=== PATIENT | female | born 1985 | race Caucasian/White ===

== ENCOUNTER 2022-02-10 19:21 | Emergency (ER) | payer MEDICAID, SELFPAY ==
--- NOTE | 2022-02-10 19:26 | XR_ITS ---
PROCEDURE INFORMATION: Exam: XR Abdomen Exam date and time: 02/10/2022 7:32 PM Age: 36 years old Clinical indication: Constipation; Prior surgery TECHNIQUE: Imaging protocol: Radiologic exam of the abdomen. Views: Frontal supine view of the abdomen. 1 View. COMPARISON: No relevant prior studies available. FINDINGS: Gastrointestinal tract: Nondilated bowel with gas extending throughout the abdomen and pelvis. Organs: Status post cholecystectomy. Bones/joints: Unremarkable. IMPRESSION: No acute findings.
[2022-02-10 20:00] VITALS: BP 132/90; PULSE 87; RESP 18; TEMP 36.9; O2SAT 97; BMI 40.7
--- NOTE | 2022-02-10 20:23 | EXP.UTC ---
Discharge Plan Disposition Patient Disposition: Home, Self-Care Condition: Good Prescriptions Prescriptions: New polyethylene glycol 3350 [Miralax] 17 gram powder in packet 17 g PO DAILY Qty: 30 0RF glycerin (adult) Suppository 1 supp OK DAILY PRN (Reason: constipation) Qty: 12 0RF Referrals Follow up/Referrals: Lizette Carrera [Primary Care Provider] - See instructions Activity Restrictions/Add. Instructions Additional Instructions/Restrictions: Make sure to increase fiber in diet and drink plenty of water Fruits may help to keep you regular Follow up with your Family Doctor if no improvement or any worsening of symptoms Clinical Impressions Clinical Impression: Constipation Instructions Patient Instructions: Constipation (Alternative Therapy), Constipation, High-Fiber Diet, DI for Fecal Impaction Discharge ED Provider: Alayna Adams [facility] General Stated complaint: no BM 2 days Mode of Arrival: Ambulatory Source of Information: Patient Limitations: No Limitations Time Seen by Provider: 02/10/22 20:23 Description of Symptoms (Recalled from Triage Doc. by RN): Pt c/o constipation x2 days HEENT Symptoms (Recalled from RN notes): No Resp Symptoms (Recalled from RN notes): No Skin Symptoms (Recalled from RN notes): No MS Symptoms (Recalled from RN notes): No Functional Status (Recalled from RN notes): n/a History of Present Illness Provider Complaint: Patient states that she feels like she is constipated States that she went to the bathroom earlier and feels like it is down low and dry States that she tried to use her fingers to pull it out but couldnt so she came in to get checked Related Data Previous Rx's Medication Instructions Recorded glycerin (adult) 1 supp OK DAILY PRN constipation 02/10/22 #12 ea polyethylene glycol 3350 17 gram 17 g PO DAILY #30 ea 02/10/22 oral powder packet (Miralax) Allergies Allergy/AdvReac Type Severity Reaction Status Date / Time No Known Allergies Allergy Verified 02/10/22 20:39 Worker's Comp Is this a Worker's Comp case?: No PFSH PFSH Social History Smoking Status: Unknown if ever smoked alcohol intake: never current occupational status: other Travel in the last 8 weeks: None ROS Obtained: Yes All systems reviewed & no additional complaints except as documented and Yes Systems reviewed as appropriate & no additional complaints except as documented Constitutional Constitutional: Reports system reviewed and no additional complaints, except as documented and Reports as per HPI Eyes Eyes: Reports system reviewed and no additional complaints, except as documented and Reports as per HPI ENT Ears, Nose, Mouth, and Throat: Reports system reviewed and no additional complaints, except as documented and Reports as per HPI Cardiovascular Cardiovascular: Reports system reviewed and no additional complaints, except as documented and Reports as per HPI Respiratory Respiratory: Reports system reviewed and no additional complaints, except as documented and Reports as per HPI Gastrointestinal Gastrointestingal: Reports system reviewed and no additional complaints, except as documented, as per HPI, constipation and other (feels like she has hard stool at the rectum she cannot pass) Physical Exam General General appearance: alert and in no apparent distress Respiratory Respiratory exam: Present normal lung sounds bilaterally; Absent respiratory distress or wheezes Cardiovascular Cardiovascular exam: Present regular rate, normal rhythm and normal heart sounds Abdominal Exam Abdominal exam: Present soft and normal bowel sounds; Absent distention or tenderness Rectal Exam Rectal exam: Present other (digital exam done, large amount of dry hard stool noted, lubrication placed and patient able to expell copious amount of dry paisty stool) Neurological Exam Neurological exam: Present alert, oriented X3 and normal gait Medical Decision Making Rod Inquiry
[2022-02-10 20:44] VITALS: BP 132/90; PULSE 87; RESP 18; TEMP 36.9; O2SAT 97
== END 2022-02-10 20:47 | disposition home or self-care (01) ==
PROVIDERS: Emergency Provider Nurse Practitioner; PCP Internal Medicine Addiction Medicine
DX: K59.00 Constipation, unspecified (principal)
CPT/HCPCS: 74018; 99212; G0463

== ENCOUNTER → 2022-03-10 13:05 | Outpatient (CLI) | payer MEDICAID, SELFPAY ==
[2022-03-10 14:46] LABS: HCG,Quantitative < 2 mIU/ml (0-5.42)
== END ==
PROVIDERS: PCP Internal Medicine Addiction Medicine; Visit Provider Obstetrics & Gynecology
DX: N92.6 Irregular menstruation, unspecified (principal)
CPT/HCPCS: 36415; 84702

== ENCOUNTER 2023-06-16 15:48 | Emergency (ER) | payer MEDICAID, SELFPAY ==
[2023-06-16 15:50] VITALS: BP 127/36; PULSE 75; RESP 18; TEMP 36.7; O2SAT 98; BMI 41.5
[2023-06-16 16:01] VITALS: BP 127/71; PULSE 73; O2SAT 100
--- NOTE | 2023-06-16 16:46 | ED_ITS ---
Discharge Plan Disposition Patient Disposition: Home, Self-Care Chief Complaint: Extremity Problem,Nontraumatic Prescriptions Prescriptions: No Action polyethylene glycol 3350 [Miralax] 17 gram powder in packet 17 g PO DAILY Qty: 30 0RF glycerin (adult) Suppository 1 supp [place] DAILY PRN (Reason: constipation) Qty: 12 0RF Referrals Follow up/Referrals: Provider,Referral, MD [Primary Care Provider] - See instructions Dyllan Abreu DO [Staff Physician] - See instructions Activity Restrictions/Add. Instructions Additional Instructions/Restrictions: Call your family doctor to establish care for this visit to the emergency department and schedule follow-up within 48 hours to ensure improvement. Information has been given to hepatitis C coordinator, they will be in contact with you in order to set up care and treatment. Clinical Impressions Clinical Impression: Hepatitis C, Bilateral hand numbness Discharge ED Provider: Bernard Velarde General Adult HPI General Chief complaint: Extremity Problem,Nontraumatic Stated complaint: arms going numb and left hand swollen Time Seen by Provider: 06/16/23 15:54 Mode of Arrival: Ambulatory Source of Information: Patient Limitations: No Limitations Description of Symptoms (Recalled from ER Triage Doc. by RN): Patient states that she has had bilateral arm numbness and pain at night for approx 1 week. States she also started taking Suboxone approx 1 week ago as well. Reports left hand swelling as well. History of Present Illness HPI narrative: 37-year-old female recently incarcerated history of hepatitis C that is untreated presenting with hand tingling. Patient states that when she wakes up sometimes in the middle of the night, her hands are burning and tingling on both sides. Denies lower extremity symptoms. Denies weakness, bowel or bladder dysfunction. She does have degenerative disc disease of the neck, but does not have a family doctor to follow-up with because she was just recently incarcerated. Also asking for help with hepatitis C. Related Data Previous Rx's Medication Instructions Recorded glycerin (adult) 1 supp WI DAILY PRN constipation 02/10/22 #12 ea polyethylene glycol 3350 17 gram 17 g PO DAILY #30 ea 02/10/22 oral powder packet (Miralax) Allergies Allergy/AdvReac Type Severity Reaction Status Date / Time No Known Allergies Allergy Verified 02/10/22 20:39 [facility] Disclaimer: The information contained in this section may have been updated after the jesse ent was seen, as this information can be updated by other users. Social History (Updated 02/10/22 @ 20:47 by Alayna Adams APRN) Smoking Status: Never smoker alcohol intake: never current occupational status: other Travel in the last 8 weeks: None ROS Obtained: Yes All systems reviewed & no additional complaints except as documented Physical Exam General General appearance: alert and in no apparent distress Head Head exam: atraumatic and normocephalic Eye Eye exam: Present normal appearance, PERRL and EOMI ENT ENT exam: Present mucous membranes moist Neck Neck exam: Present normal inspection, full ROM and trachea midline Respiratory Respiratory exam: Absent respiratory distress, wheezes, stridor, accessory muscle use or prolonged expiratory phase Cardiovascular Cardiovascular exam: Present normal rhythm Abdominal Exam Abdominal exam: Present soft; Absent distention, tenderness, guarding, rebound or rigidity Extremities Exam Extremities exam: Absent edema Neurological Exam Neurological exam: Present alert, oriented X3, CN II-XII intact and normal gait; Absent motor sensory deficit Skin Skin exam: Present warm and dry; Absent diaphoresis or erythema Medical Decision Making Medical Records Medical records reviewed: Yes I reviewed the patient's medical records. Rod Inquiry Pt receiving controlled substance: No Rod was queried for this patient: No Vital Signs: 06/16/23 15:50 06/16/23 16:01 06/16/23 17:40 Temperature 98.0 F Temperature Source Oral Pulse Rate 73 57 L Pulse Rate [Radial] 75 Respiratory Rate 18 Blood Pressure 127/71 111/61 Blood Pressure [Right Arm] 127/36 L Blood Pressure Mean 86 Blood Pressure Mean [Right Arm] 66 Blood Pressure Source [Right Arm] Automatic Cuff Blood Pressure Position [Right Arm] Sitting 02 Sat by Pulse Oximetry 98 100 100 Oxygen Delivery Method Room Air Room Air Room Air Lab Data Lab Results 06/16/23 17:00: WBC 4.4 L, RBC 4.85, Hgb 14.7, Hct 44.9, MCV 92.5, MCH 30.4, MCHC 32.9, RDW 13.8, Plt Count 217, MPV 8.1, Neut % (Auto) 49.5, Lymph % (Auto) 40.7, [place] % (Auto) 5.2, Eos % (Auto) 3.7, Baso % (Auto) 0.8, Neut # (Auto) 2.2, Lymph # (Auto) 1.8, [place] # (Auto) 0.2, Eos # (Auto) 0.2, Baso # (Auto) 0.0, Sodium 138, Potassium 3.9, Chloride 105, Carbon Dioxide 28, Anion Gap 8.9, BUN 9, Creatinine 0.70, Estimated Creat Clear 99, Estimated GFR 94, Est GFR ( Amer) 114, Glucose 93, Calcium 8.5, Total Bilirubin 0.6, AST 70 H, ALT 55, Alkaline Phosphatase 47, Total Protein 6.8, Albumin 3.7, Globulin 3.1, Albumin/Globulin Ratio 1.2 06/16/23 17:00 06/16/23 17:00 Orders (Tests/Meds): ORDERS Category Date Time Status CBC w/Auto Diff [Complete Blood Count Auto Diff] Stat Lab 06/16/23 17:00 Completed CMP [Comprehensive Metabolic Panel] Stat Lab 06/16/23 17:00 Completed HCV RNA PCR, Quant Stat Lab 06/16/23 17:00 Received Hep C Ab with Reflex to RNA Stat Lab 06/16/23 17:00 Received Hepatitis Panel Stat Lab 06/16/23 17:00 Received Medical Decision Narrative: 37-year-old female recently incarcerated history of hepatitis C that is untreated presenting with hand tingling. Patient states that when she wakes up sometimes in the middle of the night, her hands are burning and tingling on both sides. Denies lower extremity symptoms. Denies weakness, bowel or bladder dysfunction. She does have degenerative disc disease of the neck, but does not have a family doctor to follow-up with because she was just recently incarcerated. Also asking for help with hepatitis C. History was obtained via conversation with patient. On arrival, patient hemodynamically stable, alert, oriented x4, appropriate, GCS 15, moving all extremities spontaneously, pupils equal and reactive to light. Full physical exam performed and significant for neurovascularly intact. No spinal abnormalities. Differential includes spinal stenosis, compression, radiculopathy, neuropathy, carpal tunnel, among others. Workup independently interpreted and significant for nonactionable CBC or chem istry. Hepatitis labs pending at time of discharge. Given patient presentation, workup, history, this most likely represents radiculopathy versus carpal tunnel syndrome. Because patient at baseline without signs or symptoms of clinical decompensation, deemed appropriate for discharge. Results were relayed to patient who voiced understanding and were agreeable to outpatient management and follow up. At the time of discharge the patient was hemodynamically stable, tolerating PO, and mobilizing appropriately. Information given regarding hepatitis C follow-up and information was relayed to coordinator. Critical Care Critical Care Time Critical Care Time: No
[2023-06-16 17:09] LABS: Basophils % 0.8 % (0.1-2.0); Eosinophils # 0.2 K/mm3 (0.0-0.4); Eosinophils % 3.7 % (0.1-12.0); Hematocrit 44.9 % (37.0-47.0); Hemoglobin 14.7 g/dL (12.2-16.2); Lymphocytes # 1.8 K/mm3 (0.7-4.5); Lymphocytes % 40.7 % (10-50); Mean Corpuscular HGB Conc 32.9 g/dL (31.8-35.4); Mean Corpuscular Hemoglobin 30.4 pg (27.0-31.2); Mean Corpuscular Volume 92.5 fl (81-99); Mean Platelet Volume 8.1 fl (7.4-10.4); Monocytes # 0.2 K/mm3 (0.1-1.0); Monocytes % 5.2 % (1.7-9.3); Neutrophils # 2.2 K/mm3 (1.8-7.8); Neutrophils % 49.5 % (37.0-80.0); Platelet Count 217 K/mm3 (142-424); Red Blood Count 4.85 M/mm3 (4.20-5.40); Red Cell Distribution Width 13.8 % (11.5-17.5); White Blood Count 4.4 K/mm3 (4.8-10.8)
[2023-06-16 17:15] LABS: Chloride 105 mmol/L (98-107); Potassium 3.9 mmoL/L (3.5-5.1); Sodium 138 mmol/L (136-145)
[2023-06-16 17:18] LABS: Alanine Aminotransferase 55 U/L (12-78); Albumin Level 3.7 g/dl (3.5-5.0); Albumin/Globulin Ratio 1.2 (1.1-1.8); Alkaline Phosphatase 47 U/L (38-126); Anion Gap 8.9 mEq/L (5-15); Aspartate Amino Transferase 70 U/L (14-36); Bilirubin,Total 0.6 mg/dl (0.2-1.3); Blood Urea Nitrogen 9 mg/dl (7-17); Carbon Dioxide 28 mmol/L (22.0-30.0); Creatinine Clearance Estimated 99 mL/min (50-200); Estimated Glomerular Filt Rate 94 ml/min (>60); GFR (African American) 114 ML/MIN (>60); Globulin 3.1 g/dL (1.3-3.2); Total Protein,Serum 6.8 g/dl (6.3-8.2)
[2023-06-16 17:19] LABS: Calcium 8.5 mg/dl (8.4-10.2); Glucose 93 mg/dl (74-100)
[2023-06-16 17:40] VITALS: BP 111/61; PULSE 57; O2SAT 100
[2023-06-16 18:35] VITALS: BP 136/59; PULSE 58; RESP 16; TEMP 36.7; O2SAT 99
[2023-06-16 19:06] LABS: T4 (Thyroxine) 11.8 ug/dl (5.53-11.0)
[2023-06-16 19:19] LABS: Thyroid Stimulating Hormone 1.37 uIU/mL (0.465-4.68)
[2023-06-20 21:34] LABS: HCV Ab Reactive (Non Reactive)
[2023-06-21 20:18] LABS: HBsAg Screen Negative (Negative); HCV Ab Reactive (Non Reactive); Hep A Ab, IGM Negative (Negative); Hep B Core Ab, IgM Negative (Negative)
== END 2023-06-16 18:36 | disposition home or self-care (01) ==
PROVIDERS: Emergency Provider Emergency Medicine
DX: B19.20 Unspecified viral hepatitis C without hepatic coma (principal); R20.0 Anesthesia of skin; R20.2 Paresthesia of skin; M50.30 Other cervical disc degeneration, unspecified cervical region
CPT/HCPCS: 80053; 80074; 84436; 84443; 85025; 87522; 99285

== ENCOUNTER 2023-07-11 08:00 | Outpatient (RCR) | payer MEDICAID, SELFPAY ==
--- NOTE | 2023-06-29 10:25 | HMH.PTOPEV ---
PT Outpatient Evaluation Rehab PT Outpatient Evaluation Start: 06/29/23 08:13 Freq: Status: Active Protocol: Document 06/29/23 09:59 SAHIL (Rec: 06/29/23 10:24 PHOADELAIDA [id number]) E-signed By Tommie Carter, PT Outpatient Therapy Plan of Care Treatment Plan May Include Therapeutic Exercise Including Home Yes Exercise Program Manual Therapy Techniques Yes Neuromuscular Re-education Yes Therapeutic Activities to Return to Yes Previous Functional/Work Level ADL/Self Care Education Yes Orthotics/Bracing/Splinting Yes Vasopneumatic Compression Pump Yes Manual Lymphatic Drainage Yes Eval/Re-Eval Yes Frequency Times per week 2 Duration Number of Weeks 4 Addendums This patient is a candidate for social No or vocational rehab? Patient/Guardian verbally acknowledges Yes understanding of treatment program and consents to further treatment? Patient/Guardian verbally acknowledges Yes understanding of diagnosis, prognosis and goals for treatment? Eval Complexity PT Charges 03840 - High Complexity Outpatient Therapy Subjective History Subjective History This is the initial PT eval for Nahomy Kim, 37 yowf who presents with c/o B UE and L LE edema, chronic low back pain and increased c/o B forearm pain. She reports L LE edema with insidious onset beginning 6-7 yrs ago. She reports pain and edema worse with prolonged standing. She reports her low back pain is not present today and is only intermittent in nature. She does c/o B forearm pain with increased numbness and tingling associated x several months with insidious onset. She reports hx of DDD, Hep C, CCY, tubal ligation, , hx of substance abuse. New diagnosis of cancer in past 12 No months? Chief Complaint Pain Symptom Type Sharp Symptoms Relieved By Rest/Positioning Symptoms Aggravated By Lifting Prior Functional Limitations None Current Functional Limitations Lifting,Housework Symptom Description Intermittent Level of pain today (0-10) 0 Pain scale - at its worst (0-10) 6 Lumbopelvic Eval Posture Thoracic Spine Posture Standing Position Neutral Lumbar Spine Posture Standing Position Neutral Range of Motion Lumbar Spine ROM Reason Not Measured Within Functional Limits Manual Muscle Test Bilateral Knee Extension Strength Grade 5 Normal Knee Flexion Strength Grade 5 Normal Hip Flexion Strength Grade 5 Normal Hip Abduction Strength Grade 5 Normal Hip Adduction Strength Grade 5 Normal Hip External Rotation Strength Grade 5 Normal Hip Internal Rotation Strength Grade 5 Normal Hip Extension Strength Grade 5 Normal Extensor Hallucis Longus Strength Grade 5 Normal Ankle Dorsiflexion Strength Grade 5 Normal Gastronemius/Soleus Strength Grade 5 Normal Special Tests Forward Bending Test- Standing Negative Left,Negative Right Forward Bending Test- Sitting Negative Left,Negative Right Hip Scouring (Quadrant) Test Negative Left,Negative Right Hip Jaspreet (MOSES) Test Negative Left,Negative Right Sciatic Nerve Tension Test Negative Left,Negative Right Lumbar Long [place] Distraction Test/Manual Negative Traction Outpatient Therapy Assessment Impairments Problems/Impairmments Subjective C/O Pain Prognosis Rehab Potential Innapropriate for Skilled Therapy Comment Currently her low back is not causing any pain or radicular symptoms. She c/o much more UE and neck symptoms at this time. Recommended a new order from MD for cervical DDD with radiculopathy or possibly neurology consult if warranted based on her symptoms. Clinical Impression Consistent with Diagnosis Yes Shoulder/Elbow Eval Shoulder Objective Measurements Elbow Objective Measurements PHYSICIAN CERTIFICATION: I certify the specified therapy services for Nahomy Kim are required, authorized, and reviewed every 30 days.
--- NOTE | 2023-06-29 10:25 | HMH.PTOPWND ---
Rehab Outpt Wound Evaluation Rehab OP Wound Evaluation Start: 06/29/23 08:13 Freq: Status: Active Protocol: Document 06/29/23 09:59 PHOADELAIDA (Rec: 06/29/23 10:24 PHORNE [id number]) E-signed By Tommie Carter, PT Subjective/History History History This is the initial PT eval for Nahomy Kim, 37 yowf who presents with c/o B UE and L LE edema, chronic low back pain and increased c/o B forearm pain. She reports L LE edema with insidious onset beginning 6-7 yrs ago. She reports pain and edema worse with prolonged standing. She reports her low back pain is not present today and is only intermittent in nature. She does c/o B forearm pain with increased numbness and tingling associated x several months with insidious onset. She reports hx of DDD, Hep C, CCY, tubal ligation, , hx of substance abuse. Subjective Subjective Currently no pitting edema or pain in the L LE. Moderate Fibrotic edema to the L LE noted with palpation. No tenderness to palpation noted. New diagnosis of cancer in past 12 No months? Lymphedema Eval Classification of Lymphedema Secondary Lymphedema No Stemmer's sign Stemmer's Sign no Stage of Lymphedema Lymphedema stages Stage II (Pitting edema, increased fibrosis w/ decreased pitting) Skin Changes Dry Skin Yes Skin Folds Yes Other Changes Yes Affected Extremities Areas Affected by Lymphedema/Edema Right Lower Extremity,Left Lower Extremity Manual Lymphatic Drainage Treatment Area MLD Treatment Area Right Lower Extremity,Left Lower Extremity Wound Problems/Impairments Impairments Problems/Impairmments Impaired Standing,Impaired Household Care,Increased Edema ,Lymphedema Present,Subjective C/O Pain,Impaired Self Care/ Self Management Prognosis Rehab Potential Good Clinical Impression Consistent with Diagnosis Yes Short Term Goals Number of Weeks 2 Decrease Lymphedema Yes: Min fibrotic edema L LE Patient to Understand Lymphedema Yes Treatment and Exercises Decrease Girth Measurments by (cm) Yes: L LE total by 5 cm Detention Goals Number of Weeks 4 Decrease Lymphedema Yes: No fibrotic edema L LE Patient to be Ind w/ HEP Yes Patient to be Ind w/ [place] Yes Compression Garments Patient to Adhere Lymphedema Precautions Yes Decrease Girth Measurments by (cm) Yes: L LE total by 15 cm Outpatient Therapy Plan of Care Treatment Plan May Include Therapeutic Exercise Including Home Yes Exercise Program Manual Therapy Techniques Yes Neuromuscular Re-education Yes Therapeutic Activities to Return to Yes Previous Functional/Work Level ADL/Self Care Education Yes Orthotics/Bracing/Splinting Yes Vasopneumatic Compression Pump Yes Manual Lymphatic Drainage Yes Eval/Re-Eval Yes Frequency Times per week 2 Duration Number of Weeks 4 Addendums This patient is a candidate for social No or vocational rehab? Patient/Guardian verbally acknowledges Yes understanding of treatment program and consents to further treatment? Patient/Guardian verbally acknowledges Yes understanding of diagnosis, prognosis and goals for treatment? Eval Complexity PT Charges 64621 - High Complexity PHYSICIAN CERTIFICATION: I certify the specified therapy services for Nahomy Kim are required, authorized, and reviewed every 30 days.
== END 2023-07-11 09:00 | disposition home or self-care (01) ==
LOC: PT 08:00
PROVIDERS: Visit Provider Internal Medicine
DX: M53.86 Other specified dorsopathies, lumbar region (principal); M54.30 Sciatica, unspecified side; R60.0 Localized edema
CPT/HCPCS: 97163

== ENCOUNTER → 2023-07-12 11:00 | Outpatient (POV) | payer MEDICAID, SELFPAY ==
--- NOTE | 2023-07-12 11:04 | A.OFFVIS_ITS ---
HPI Data of Consult Patient: new to practice Consult date: 07/12/23 Requesting Physician: Nikki Sanchez APRN Primary Care Provider: Dyllan Abreu DO Consult Narrative Reason for consult: Neck pain, bilateral arm pain, finger numbness tingling History of present illness: Ms. Kim is a 37 year old female who presents today as a new patient. She is from Dyllan Abreu's office. Today she rates her pain an 8 out of 10. Patient states her pain is all in her neck with radiating symptoms to her upper extremities and into her hands and fingers. Patient states this is been going on for longer than a month unrelated to any specific trauma or injury. She does state that she has had her overall aching, shooting pains in her neck for longer than that but the numbness symptoms are really starting to affect her daily life. Patient does state that it is affecting her sleep but the pain is worse at night. She states that frequently she will be woken up in the middle of the night due to the numbness and tingling. She states she cannot sleep on her sides due to this. Patient does state the pain interferes with her ability perform activities of daily living such as cooking and cleaning. She also states occasionally she will experience swelling into her fingers. She does state that the left side is more prominent than the right. Patient states that she was ordered physical therapy and that she has gone to her first evaluation but she was scheduled for her first official appointment this morning and had to cancel. Patient states that she is planning on getting back into the office for this therapy however she is just had a busy schedule. Patient has tried [id number] Tylenol and ibuprofen along with heat and ice and topicals with minimal relief. She denies any recent fall or foraminal or injection. Patient denies any recent imaging as well. She is on Suboxone therapy from an outside provider. Her Rod has been reviewed and is appropriate. CC: Nikki Sanchez APRN [facility] Disclaimer: The information contained in this section may have been updated after the patient was seen, as this information can be updated by other users. Medical History (Updated 07/12/23 @ 11:31 by Nikki Sanchez APRN) Sciatica associated with disorder of lumbar spine Surgical History (Updated 06/20/23 @ 09:44 by Kae Pedro [facility]) History of tubal ligation Hx of cholecystectomy Social History (Updated 06/20/23 @ 09:44 by Kae Pedro [facility]) Smoking Status: Never smoker alcohol intake: current current occupational status: other Travel in the last 8 weeks: None Review of Systems Review of Systems Review of systems:: pertinent systems reviewed and negative unless documented below Review of systems (narrative): Review of Systems: General: No recent weight changes, no fever, no sleep disturbances Respiratory: No cough, no shortness of air, no recurring pulmonary infections Cardiovascular/peripheral vascular: No chest pain, no palpitations, no edema, no shortness of breath Gastrointestinal: No new onset incontinence, normal bowel movements reported Genitourinary: No new onset incontinence Musculoskeletal: Neck pain, bilateral pain Psychiatric: [Normal mood/affect] Neurological: [Denies weakness in extremities], [denies balance issues] Meds Home Medications and Allergies Home Medications Medication Instructions Recorded Confirmed Type buprenorphine 8 mg-naloxone 2 mg 1 film sublingual DAILY 06/20/23 06/20/23 History sublingual film New Prescriptions to Start Prescriptions: Allergies Allergy/AdvReac Type Severity Reaction Status Date / Time No Known Allergies Allergy Verified 06/20/23 09:42 Objective Narrative: Physical Exam: General: Alert and oriented x3, no acute distress, pleasant and cooperative Lungs: Respirations even and unlabored, symmetrical chest expansion Eyes: PERRL Musculoskeletal: Flexion and extension of cervical [spine] somewhat guarded secondary to pain Neurological: Speech clear, no gross sensory deficit Assessment and Plan *Assessment and plan (1) Neck pain: Status: Acute Category: Medical Code(s): M54.2 - Cervicalgia (2) Cervical radiculopathy: Status: Acute Category: Medical Code(s): M54.12 - Radiculopathy, cervical region Plan Patient is experiencing significant pain in her neck with radiating symptoms into her upper extremities. I have discussed with the patient that I will order x-ray and MRI without contrast imaging of her cervical spine. I have also discussed with the patient in future she may benefit from injection therapy. We will follow-up with this at future visits. Patient has been recommended to continue her physical therapy in the meantime and I will order the patient a compounded cream. Patient will return to clinic in 1 month following her imaging for reevaluation of symptoms and plan of care. Patient has been instructed to contact the clinic with any concerns before the next appointment. Dr. Fontenot has reviewed this note and agrees with this plan of care. This note was dictated using voice recognition software and make contain errors or omissions.
[2023-07-12 11:46] VITALS: BP 114/63; PULSE 67; RESP 18; O2SAT 96; BMI 41.5
--- NOTE | 2023-07-12 11:46 | XR_ITS ---
FINAL REPORT TECHNIQUE: 5 views CLINICAL HISTORY: NECK PAIN COMPARISON: None FINDINGS: There is no fracture present. There is no malalignment. There is mild to moderate degenerative change of the lower cervical spine. There is straightening of the normal curvature of the cervical spine. There is no significant neuroforaminal narrowing. IMPRESSION: No acute process Mild to moderate degenerative change as described, with straightening of the normal curvature. Reviewed, Interpreted and Dictated by Cam Rodriguez III, MD Transcribed by Jaclyn Blanton Authenticated and [facility]
== END ==
PROVIDERS: PCP Internal Medicine; Visit Provider Nurse Practitioner Family
DX: M54.12 Radiculopathy, cervical region (principal); M54.2 Cervicalgia
CPT/HCPCS: 72050; 99202; G0463

== ENCOUNTER 2023-08-09 10:20 | Outpatient (POV) | payer MEDICAID, SELFPAY ==
[2023-08-09 10:38] VITALS: BP 112/53; PULSE 70; RESP 18; O2SAT 97; BMI 39.9
--- NOTE | 2023-08-09 11:25 | A.OFFVIS_ITS ---
[facility] Pain Management SOAP Note Subjective:: Patient is a pleasant 37-year-old female who presents today for follow-up of cervical x-ray. Today she rates her pain 8 out of 10. She denies any new trauma or injury. Patient states she continues to have neck pain with radiating symptoms to her arms and hands. Patient states that the numbing, burning sensations that were throughout her hands and more prominent on the night are now continuously throughout the day. Patient states that it is affecting her sleep and she feels like she only got an hour worth last night. Patient does also state that she also notices that she feels like her legs will be more weak with certain positions when she is lying down. Patient did get the compounded cream from her last visit and states that she did not notice significant relief on her hands however her shoulder has helped significantly. Patient will still have her upcoming MRI. Patient denies any heart or kidney issues. Patient is on Suboxone therapy from an outside provider. Her Rod has been reviewed and is appropriate. Review of Systems: General: No recent weight changes, no fever, no sleep disturbances Respiratory: No cough, no shortness of air, no recurring pulmonary infections Cardiovascular/peripheral vascular: No chest pain, no palpitations, no edema, no shortness of breath Gastrointestinal: No new onset incontinence, normal bowel movements reported Genitourinary: No new onset incontinence Musculoskeletal: Neck pain, upper arm pain, low back/leg weakness Psychiatric: [Normal mood/affect] Neurological: [Denies weakness in extremities], [denies balance issues] Objective:: Physical Exam: General: Alert and oriented x3, no acute distress, pleasant and cooperative Lungs: Respirations even and unlabored, symmetrical chest expansion Eyes: PERRL Musculoskeletal: Flexion and extension of cervical [spine] somewhat guarded secondary to pain, [antalgic gait noted] Neurological: Speech clear, no gross sensory deficit Assessment:: Degenerative disc disease of cervical spine with cervical radiculopathy symptoms, low back pain, bilateral leg weakness Plan:: Patient's x-ray imaging were reviewed with the patient with mild to moderate degenerative change noted in the lower cervical spine. I have discussed with the patient we will still proceed forward with ordering the MRI without contrast. I have discussed with patient that she may benefit from a cervical epidural steroid injection. Risk and benefits were discussed with the patient however at this time she would like to wait. I will order the patient diclofe nac 75 mg twice a day and tizanidine 4 mg at bedtime and provide a 2-week supply of this medication. Patient does state that she has a appointment coming up with the neurologist on Sunday. Patient will return to clinic in 2 weeks for reevaluation of symptoms and plan of care. Patient has been instructed to contact the clinic with any concerns before the next appointment. Dr. Fontenot has reviewed this note and agrees with this plan of care. This note was dictated using voice recognition software and make contain errors or omissions. [facility] Disclaimer: The information contained in this section may have been updated after the patient was seen, as this information can be updated by other users. Medical History (Updated 07/18/23 @ 10:26 by Nahomy Abreu DO) Cervical radiculopathy Sciatica associated with disorder of lumbar spine Surgical History (Updated 07/18/23 @ 10:25 by Nahomy Abreu DO) History of delivery Hx of cholecystectomy History of tubal ligation Family History (Updated 07/18/23 @ 09:32 by PEGGY Hills) Other No significant family history Social History Smoking Status: Never smoker alcohol intake: current current occupational status: unemployed Travel in the last 8 weeks: None
== END 2023-08-09 23:59 | disposition home or self-care (01) ==
PROVIDERS: PCP Internal Medicine; Visit Provider Nurse Practitioner Family
DX: M50.10 Cervical disc disorder with radiculopathy, unspecified cervical region (principal); M54.50 Low back pain, unspecified; R53.1 Weakness
CPT/HCPCS: 99212; G0463

== ENCOUNTER 2023-08-23 09:29 | Outpatient (POV) | payer MEDICAID, SELFPAY ==
[2023-08-23 09:53] VITALS: BP 130/33; PULSE 66; RESP 18; O2SAT 98; BMI 39.1
--- NOTE | 2023-08-23 09:53 | EXP.PAIN.SOA ---
[facility] Pain Management SOAP Note Subjective:: Patient is a pleasant 37-year-old female who presents today for insurance denial of MRI of her cervical spine. Patient rates her pain today a 7 out of 10. She denies any new trauma or injury. She does state that she has officially started physical therapy however it is only been for the initial evaluation. Patient from her last visit was prescribed diclofenac 75 mg twice a day and tizanidine 4 mg at bedtime. She does state that this did significantly help at least a get her more sleep. She is requesting a refill. Patient did also get the compounded cream and states it did not seem to do as much for her hands but is helping on her shoulder and parts of her neck. Patient is on Suboxone therapy from an outside provider. Her Rod has been reviewed and is appropriate. Review of Systems: General: No recent weight changes, no fever, no sleep disturbances Respiratory: No cough, no shortness of air, no recurring pulmonary infections Cardiovascular/peripheral vascular: No chest pain, no palpitations, no edema, no shortness of breath Gastrointestinal: No new onset incontinence, normal bowel movements reported Genitourinary: No new onset incontinence Musculoskeletal: Neck pain, upper extremity pain Psychiatric: [Normal mood/affect] Neurological: [Denies weakness in extremities], [denies balance issues] Objective:: Physical Exam: General: Alert and oriented x3, no acute distress, pleasant and cooperative Lungs: Respirations even and unlabored, symmetrical chest expansion Eyes: PERRL Musculoskeletal: Flexion and extension of cervical [spine] somewhat guarded secondary to pain, [antalgic gait noted] Neurological: Speech clear, no gross sensory deficit Assessment:: Degenerative disc disease of cervical spine with cervical radiculopathy symptoms, low back pain, bilateral leg weakness Plan:: Will refill the patient's diclofenac 75 mg twice daily and tizanidine 4 mg at bedtime and provide a 2-month supply of this medication. I have counseled the patient that we will plan on following up with her after 6 weeks of her physical therapy time we will plan on resubmitting for the MRI. Patient will return to clinic in 6 weeks for reevaluation of symptoms and plan of care. Patient has been instructed to contact the clinic with any concerns before the next appointment. Dr. Fontenot has reviewed this note and agrees with this plan of care. This note was dictated using voice recognition software and make contain errors or omissions. [facility] Disclaimer: The information contained in this section may have been updated after the patient was seen, as this information can be updated by other users. Medical History (Updated 08/13/23 @ 12:08 by Lynn Palma APRN) Neck pain Cervical radiculopathy Sciatica associated with disorder of lumbar spine Surgical History History of delivery Hx of cholecystectomy History of tubal ligation Family History Other No significant family history Social History (Updated 08/13/23 @ 11:26 by Linette Malcolm) Smoking Status: Never smoker alcohol intake: former substance use type: crack/cocaine current occupational status: employed Travel in the last 8 weeks: None household members: significant other housing: other marital status: single
== END 2023-08-23 23:59 | disposition home or self-care (01) ==
PROVIDERS: PCP Internal Medicine; Visit Provider Nurse Practitioner Family
DX: M50.10 Cervical disc disorder with radiculopathy, unspecified cervical region (principal); M54.50 Low back pain, unspecified; R53.1 Weakness
CPT/HCPCS: 99212; G0463

== ENCOUNTER 2023-09-14 22:18 | Emergency (ER) | payer MEDICAID, SELFPAY ==
[2023-09-14 22:19] VITALS: BP 117/61; PULSE 68; RESP 16; TEMP 36.5; O2SAT 98; BMI 36.6
--- NOTE | 2023-09-14 22:38 | ED_ITS ---
Discharge Plan Disposition Patient Disposition: Home, Self-Care Prescriptions Prescriptions: No Action buprenorphine-naloxone 8-2 mg film 1 film sublingual DAILY tizanidine [Zanaflex] 4 mg tablet 4 mg PO HS Qty: 30 0RF diclofenac sodium 75 mg tablet,delayed release (DR/EC) 75 mg PO BID Qty: 60 0RF Referrals Follow up/Referrals: Dyllan Abreu DO [Primary Care Provider] - See instructions Activity Restrictions/Add. Instructions Additional Instructions/Restrictions: Take Tylenol 1000 mg every 6 hours (4 times daily) and ibuprofen 400 mg every 6 hours (4 times daily) as needed with food and water to prevent GI upset and kidney damage. Talk to family doctor about possible gabapentin for radicular symptoms. Continue follow-up with physical therapy and MRI, as scheduled. Call your family doctor to establish care for this visit to the emergency department and schedule follow-up within 48 hours to ensure improvement. If you have any worsening of your condition or any other concerning signs or symptoms, return to the emergency department or your primary care doctor for further evaluation. Clinical Impressions Clinical Impression: Cervical radiculopathy at C6, Cervical radiculopathy at C7 Stand Alone Forms Stand Alone Forms: Work/School Release Discharge ED Provider: Bernard Velarde General Adult HPI General Chief complaint: Dizziness Stated complaint: dizzy, numbness in hands Time Seen by Provider: 09/14/23 22:23 Mode of Arrival: Wheelchair Source of Information: Patient Limitations: No Limitations Description of Symptoms (Recalled from ER Triage Doc. by RN): Pt presents with dizziness that started 2 hrs ago (2029) associated with increase in chronic bilateral hand pain that she has had since May 2023. Pt states she has followed up with PCP for her hands, d/t see nerurology in September. Denies any visual changes, nausea, vomiting or falls. History of Present Illness HPI narrative: 37-year-old female with history of cervical radiculopathy secondary to herniated disc, degenerative disc disease presenting with bilateral upper extremity tingling in her hands. This is on it, has not changed. She states that she is also having pain with it. No weakness. No lower extremity deficits. No bowel or bladder incontinence. Following with pain medicine, family doctor, patient on Suboxone, has not had any more pain meds added. Also has a pain cream that she says helps intermittently. Supposed to have physical therapy and MRI coming up in the next couple of weeks, has not made it there. Seems to be doing everything right and very medically compliant. Please note that above description of symptoms, in this electronic medical record under categorization of recalled from ER triage doctor by RN are reflective of an initial nursing assessment, however, is not reflective of my full history and physical exam that was personally taken and clarified. Consequentially, this preceding description of symptoms, which may include the patient's categorized chief complaint in the EMR, do not reflect my personal clinical impression, and the ultimate description of history of present illness and patient stated complaints should be deferred to this section of the note. Unless stated otherwise or congruent with this section of the note, additional signs, symptoms, or incongruence should be interpreted as inaccurate with my clinical impression. Related Data Home Medications Medication Instructions Recorded Confirmed buprenorphine 8 mg-naloxone 2 mg 1 film sublingual DAILY 06/20/23 08/23/23 sublingual film Previous Rx's Medication Instructions Recorded diclofenac sodium 75 mg 75 mg PO BID #60 tabs 08/23/23 tablet,delayed release tizanidine 4 mg tablet (Zanaflex) 4 mg PO HS #30 tabs 08/23/23 Allergies Allergy/AdvReac Type Severity Reaction Status Date / Time No Known Allergies Allergy Verified 08/13/23 11:11 [facility] Disclaimer: The information contained in this section may have been updated after the p yanethient was seen, as this information can be updated by other users. Medical History (Updated 09/14/23 @ 23:12 by Bernard Velarde MD) Neck pain Cervical radiculopathy Sciatica associated with disorder of lumbar spine Surgical History History of delivery Hx of cholecystectomy History of tubal ligation Family History Other No significant family history Social History (Updated 08/13/23 @ 11:26 by Linette Malcolm) Smoking Status: Never smoker alcohol intake: former substance use type: crack/cocaine current occupational status: employed Travel in the last 8 weeks: None household members: significant other housing: other marital status: single ROS Obtained: Yes All systems reviewed & no additional complaints except as documented Physical Exam General General appearance: alert and in no apparent distress Head Head exam: atraumatic and normocephalic Eye Eye exam: Present normal appearance, PERRL and EOMI ENT ENT exam: Present mucous membranes moist Neck Neck exam: Present normal inspection, full ROM and trachea midline Respiratory Respiratory exam: Absent respiratory distress, wheezes, stridor, accessory muscle use or prolonged expiratory phase Cardiovascular Cardiovascular exam: Present normal rhythm Abdominal Exam Abdominal exam: Present soft; Absent distention, tenderness, guarding, rebound or rigidity Extremities Exam Extremities exam: Absent edema Neurological Exam Neurological exam: Present alert, oriented X3, CN II-XII intact and normal gait; Absent motor sensory deficit Skin Skin exam: Present warm and dry; Absent diaphoresis or erythema Medical Decision Making Medical Records Medical records reviewed: Yes I reviewed the patient's medical records. Rod Inquiry Pt receiving controlled substance: No Rod was queried for this patient: No Vital Signs: 09/14/23 22:19 09/14/23 23:22 Temperature 97.7 F 98.0 F Temperature Source Oral Oral Pulse Rate 66 Pulse Rate [Left] 68 Respiratory Rate 16 18 Blood Pressure 124/83 Blood Pressure [Right Arm] 117/61 Blood Pressure Mean [Right Arm] 79 Blood Pressure Source Automatic Cuff Blood Pressure Source [Right Arm] Automatic Cuff Blood Pressure Position Sitting Blood Pressure Position [Right Arm] Sitting 02 Sat by Pulse Oximetry 98 Oxygen Delivery Method Room Air Room Air Orders (Tests/Meds): ED MEDICATIONS Discontinued Medications Generic Name Dose Route Start Last Admin Trade Name Freq PRN Reason Stop Dose Admin Dexamethasone 10 mg 09/14/23 22:34 09/14/23 23:10 Dexamethasone 4mg Tablet PO 09/14/23 22:35 10 mg ONCE ONE Administration Ketorolac Tromethamine 15 mg 09/14/23 22:34 09/14/23 23:04 Ketorolac 30mg/Ml Vial IV 09/14/23 22:35 Not Given ONCE ONE Ketorolac Tromethamine 15 mg 09/14/23 23:05 09/14/23 23:11 Ketorolac 30mg/Ml Vial IM 09/14/23 23:06 15 mg ONCE ONE Administration ORDERS Category Date Time Status Cervical spine XR 3 views [XR cervical spine 3V] Stat Exams 09/14/23 22:40 Completed Medical Decision Narrative: 37-year-old female with history of cervical radiculopathy secondary to herniated disc, degenerative disc disease presenting with bilateral upper extremity tingling in her hands. This is on it, has not changed. She states that she is also having pain with it. No weakness. No lower extremity deficits. No bowel or bladder incontinence. Following with pain medicine, family doctor, patient on Suboxone, has not had any more pain meds added. Also has a pain cream that she says helps intermittently. Supposed to have physical therapy and MRI coming up in the next couple of weeks, has not made it there. Seems to be doing everything right and very medically compliant. History obtained with patient and chart review. On my evaluation, patient neurologically intact, no outward signs of abnormality. No cervical spine tenderness. Labs and cervical spine series was ordered. Patient refusing hematologic labs. Toradol was changed to IM. Cervical spine films unremarkable for any acute malalignment or bony abnormality. Because patient at baseline without signs or symptoms of clinical decompensation, deemed appropriate for discharge. Results were relayed to patient who voiced understanding and were agreeable to outpatient management and follow up. I discussed my clinical impression with patient and answered all questions. At this time, the evidence for any other entities in the differential is insufficient to warrant any further testing or ED observation. This was explained as well. Advisory was given that persistent or worsening symptoms require further evaluation. I confirmed the understanding of this discussion. Critical Care Critical Care Time Critical Care Time: No
--- NOTE | 2023-09-14 22:40 | XR_ITS ---
PROCEDURE INFORMATION: Exam: XR Cervical Spine Exam date and time: 09/14/2023 10:44 PM Age: 37 years old Clinical indication: Numbness; Additional info: Bilateral radiuloathy TECHNIQUE: Imaging protocol: Radiologic exam of the cervical spine. Views: 2 or 3 views. COMPARISON: CR XR CERVICAL SPINE 5V 07/12/2023 11:47 AM FINDINGS: Bones/joints: No acute fracture or subluxation. Mild disc space narrowing and endplate osteophytes at the C5-C6 and C6-C7 levels. Soft tissues: Prevertebral soft tissues are unremarkable. Lungs: Lung apices are unremarkable. IMPRESSION: Mild degenerative changes at C5-C6 and C6-C7.
--- NOTE | 2023-09-14 22:46 | PC.NURSE ---
Attempted IV access X2 , and Lorena Azevedo attempted IV access X1. Pt now refusing to be stuck again.
[2023-09-14] MEDS: DEXAMETHASONE 4MG TABLET 10 MG PO (23:10)
[2023-09-14] MEDS: KETOROLAC 30MG/ML VIAL 15 MG IM (23:11)
[2023-09-14 23:22] VITALS: BP 124/83; PULSE 66; RESP 18; TEMP 36.7; O2SAT 97
== END 2023-09-14 23:23 | disposition home or self-care (01) ==
PROVIDERS: Emergency Provider Emergency Medicine; PCP Internal Medicine
DX: M54.12 Radiculopathy, cervical region (principal); R20.0 Anesthesia of skin; R42 Dizziness and giddiness
CPT/HCPCS: 72040; 96372; 96374; 99284

== ENCOUNTER 2023-09-18 08:02 | Outpatient (RCR) | payer MEDICAID, SELFPAY | END 2023-09-18 09:00 | disposition home or self-care (01) | LOC: OT 08:02 | PROVIDERS: Visit Provider Nurse Practitioner Family | DX: R20.2 Paresthesia of skin (principal); R20.0 Anesthesia of skin | CPT/HCPCS: 97166 ==

== ENCOUNTER 2023-09-26 09:23 | Outpatient (CLI) | payer MEDICAID, SELFPAY ==
[2023-09-26 11:24] LABS: Vitamin B12 678 pg/mL (239-931)
[2023-09-26 11:31] LABS: Folate 7.59 ng/mL
[2023-09-27 15:19] LABS: Albumin 3.4 g/dL (2.9-4.4); Alpha-1-Globulin 0.3 g/dL (0.0-0.4); Alpha-2-Globulin 0.6 g/dL (0.4-1.0); Gamma Globulin 1.4 g/dL (0.4-1.8); Protein, Total 6.4 g/dL (6.0-8.5)
[2023-09-28 09:14] LABS: PDF SCANNED IMAGE
== END 2023-09-26 23:59 | disposition home or self-care (01) ==
LOC: LAB 09:24
PROVIDERS: PCP Internal Medicine; Visit Provider Nurse Practitioner Family
DX: R20.0 Anesthesia of skin (principal); R20.2 Paresthesia of skin; M54.2 Cervicalgia; G89.29 Other chronic pain
CPT/HCPCS: 36415; 82607; 82746; 84155; 84165; 86334

== ENCOUNTER 2023-10-26 10:51 | Emergency (ER) | payer MEDICAID, SELFPAY ==
[2023-10-26 10:52] VITALS: BP 135/82; PULSE 75; RESP 18; TEMP 36.6; O2SAT 98; BMI 36.6
--- NOTE | 2023-10-26 11:09 | HMH.EDGENADL ---
Discharge Plan Disposition Patient Disposition: Home, Self-Care Condition: Good Prescriptions Prescriptions: No Action buprenorphine-naloxone 8-2 mg film 1 film sublingual DAILY amitriptyline 10 mg tablet 20 mg PO HS Qty: 30 5RF Rx Instructions: 10 mg p.o. an hour before bedtime for a week may increase up to 20 mg p.o. nightly if persistent pain tizanidine [Zanaflex] 4 mg tablet 4 mg PO HS Qty: 30 0RF diclofenac sodium 75 mg tablet,delayed release (DR/EC) 75 mg PO BID Qty: 60 0RF Referrals Follow up/Referrals: Dyllan Abreu DO [Primary Care Provider] - See instructions Activity Restrictions/Add. Instructions Additional Instructions/Restrictions: You were seen in the ED today due to cervical radiculopathy. Please follow-up with your primary care and pain management. Return to the ED if symptoms worsen or if new concerning symptoms arise. Thank you. Clinical Impressions Clinical Impression: Cervical radiculopathy Stand Alone Forms Stand Alone Forms: Work/School Release Discharge ED Provider: [facility] HPI General Chief complaint: PAIN Stated complaint: hand pain Time Seen by Provider: 10/26/23 10:57 History of Present Illness HPI narrative: Patient is a 37-year-old female with history of cervical radiculopathy who presents due to hand pain. Patient states for the past 4 months she has had persistent pain in bilateral hands. She states in addition to the pain she has had paresthesias and numbness in the hands as well. Symptoms are worse on the left side compared to right. She states it has started to affect her ability to function as she is unable to use her hands properly sometimes. States she has followed with her primary care and pain management. She is on Suboxone. She has been taking Flexeril as well. States she has initiated physical therapy however is unable to obtain MRI until she has had 6 physical therapy appointments. States she has only been in physical therapy for 1 week thus far. Denies any physical injury. Related Data Home Medications Medication Instructions Recorded Confirmed buprenorphine 8 mg-naloxone 2 mg 1 film sublingual DAILY 06/20/23 10/10/23 sublingual film Previous Rx's Medication Instructions Recorded diclofenac sodium 75 mg 75 mg PO BID #60 tabs 08/23/23 tablet,delayed release tizanidine 4 mg tablet (Zanaflex) 4 mg PO HS #30 tabs 08/23/23 amitriptyline 10 mg tablet 20 mg (2 x 10 mg) PO HS #30 tabs 10/10/23 Allergies Allergy/AdvReac Type Severity Reaction Status Date / Time No Known Allergies Allergy Verified 08/13/23 11:11 [facility] Disclaimer: The information contained in this section may have been updated after the patient was seen, as this information can be updated by other users. Medical History Neck pain Cervical radiculopathy Sciatica associated with disorder of lumbar spine Surgical History History of delivery Hx of cholecystectomy History of tubal ligation Family History Other No significant family history Social History Smoking Status: Never smoker alcohol intake: former substance use type: crack/cocaine current occupational status: employed Travel in the last 8 weeks: None household members: significant other housing: other marital status: single ROS Obtained: Yes All systems reviewed & no additional complaints except as documented Physical Exam General General appearance: alert and in no apparent distress Head Head exam: atraumatic, normocephalic and normal inspection Eye Eye exam: Present normal appearance, PERRL and EOMI ENT ENT exam: Present normal exam, normal oropharynx, mucous membranes moist, TM's normal bilaterally and normal external ear exam Neck Neck exam: Present normal inspection, full ROM and trachea midline; Absent meningismus or lymphadenopathy Chest Chest inspection: Present normal inspection and symmetric chest wall rise; Absent tenderness Respiratory Respiratory exam: Present normal lung sounds bilaterally; Absent respiratory distress Cardiovascular Cardiovascular exam: Present regular rate and normal rhythm; Absent JVD Abdominal Exam Abdominal exam: Present soft and normal bowel sounds; Absent distention, tenderness or guarding Extremities Exam Extremities exam: Present normal inspection, full ROM and normal capillary refill; Absent calf tenderness Back Exam Back exam: Present normal inspection; Absent tenderness Neurological Exam Neurological exam: Present alert, oriented X3 and other (Decreased sensation to digits 1-3 of hands bilaterally. Appropriate motor function.) Psychiatric Psychiatric exam: Present normal affect and normal mood Skin Skin exam: Present warm, dry, intact and normal color Lymphatic Lymphatic Findings: no adenopathy Medical Decision Making Medical Records Medical records reviewed: Yes I reviewed the patient's medical records. Rod Inquiry Pt receiving controlled substance: No Vital Signs: 10/26/23 10:52 10/26/23 12:05 Temperature 97.9 F 98.1 F Temperature Source Oral Oral Pulse Rate 70 Pulse Rate [Left Radial] 75 Respiratory Rate 18 18 Blood Pressure 132/80 Blood Pressure [Right Arm] 135/82 Blood Pressure Mean [Right Arm] 99 Blood Pressure Source Automatic Cuff Blood Pressure Source [Right Arm] Automatic Cuff Blood Pressure Position Sitting Blood Pressure Position [Right Arm] Sitting 02 Sat by Pulse Oximetry 98 Oxygen Delivery Method Room Air Room Air Orders (Tests/Meds): ED MEDICATIONS Discontinued Medications Generic Name Dose Route Start Last Admin Trade Name Salvador PRN Reason Stop Dose Admin Dexamethasone 10 mg 10/26/23 11:08 10/26/23 11:22 Dexamethasone 4mg Tablet PO 10/26/23 11:09 10 mg ONCE ONE Administration Ketorolac Tromethamine 30 mg 10/26/23 11:08 10/26/23 11:22 Ketorolac 30mg/Ml Vial IM 10/26/23 11:09 30 mg ONCE ONE Administration Methocarbamol 500 mg 10/26/23 11:09 10/26/23 11:20 Methocarbamol 500mg Tablet PO 10/26/23 11:10 500 mg ONCE ONE Administration Medical Decision Narrative: In summary, patient is a 37-year-old female with history of cervical radiculopathy, evaluated in the emergency department today due to hand pain and numbness. On arrival, patient is hemodynamically stable with normal vital signs. On examination, patient has decreased sensation to digits 1-3 of hands bilaterally with appropriate motor function. Differential diagnosis includes but is not limited to cervical radiculopathy, nerve impingement, spinal cord injury. Patient given oral Robaxin, IM Toradol, oral Decadron. On reevaluation, patient states she has not experienced much improvement in her symptoms. I had a long discussion with the patient regarding short-term and long-term treatments for her condition including medications and physical therapy. Patient states she will follow-up with her primary care, pain management and physical therapy for further modifications to therapy. Patient is appropriate for discharge at this time. Patient counseled on home care, given strict return precautions and agreeable to plan. I considered the utility of obtaining imaging, but decided against this because this would not change management expert. I considered the utility of treatment with prescription for narcotics, but decided against this because risks outweigh benefits. Critical Care Critical Care Time Critical Care Time: No
[2023-10-26] MEDS: METHOCARBAMOL 500MG TABLET 500 MG PO (11:20)
[2023-10-26] MEDS: DEXAMETHASONE 4MG TABLET 10 MG PO (11:22)
[2023-10-26] MEDS: KETOROLAC 30MG/ML VIAL 30 MG IM (11:22)
--- NOTE | 2023-10-26 11:56 | PC.NURSE ---
ED MD AT BEDSIDE TO UPDATE PT
[2023-10-26 12:05] VITALS: BP 132/80; PULSE 70; RESP 18; TEMP 36.7; O2SAT 97
== END 2023-10-26 12:08 | disposition home or self-care (01) ==
PROVIDERS: Emergency Provider Student in an Organized Health Care Education/Training Program; PCP Internal Medicine
DX: M54.12 Radiculopathy, cervical region (principal); M79.641 Pain in right hand; M79.642 Pain in left hand; R20.2 Paresthesia of skin
CPT/HCPCS: 96372; 99283

== ENCOUNTER 2023-10-31 12:43 | Outpatient (CLI) | payer MEDICAID, SELFPAY ==
[2023-10-31 13:57] LABS: Basophils % 0.8 % (0.1-2.0); Eosinophils # 0.1 K/mm3 (0.0-0.4); Eosinophils % 2.4 % (0.1-12.0); Hematocrit 43.1 % (37.0-47.0); Hemoglobin 14.5 g/dL (12.2-16.2); Lymphocytes # 2.6 K/mm3 (0.7-4.5); Lymphocytes % 46.8 % (10-50); Mean Corpuscular HGB Conc 33.7 g/dL (31.8-35.4); Mean Corpuscular Hemoglobin 30.5 pg (27.0-31.2); Mean Corpuscular Volume 90.4 fl (81-99); Mean Platelet Volume 8.1 fl (7.4-10.4); Monocytes # 0.4 K/mm3 (0.1-1.0); Monocytes % 6.6 % (1.7-9.3); Neutrophils # 2.4 K/mm3 (1.8-7.8); Neutrophils % 43.5 % (37.0-80.0); Platelet Count 216 K/mm3 (142-424); Red Blood Count 4.77 M/mm3 (4.20-5.40); White Blood Count 5.6 K/mm3 (4.8-10.8)
[2023-10-31 14:25] LABS: Chloride 105 mmol/L (98-107); Sodium 138 mmol/L (136-145)
[2023-10-31 14:27] LABS: Alanine Aminotransferase 64 U/L (12-78); Alkaline Phosphatase 54 U/L (38-126); Aspartate Amino Transferase 72 U/L (14-36); Bilirubin,Total 0.9 mg/dl (0.2-1.3); Blood Urea Nitrogen 10 mg/dl (7-17); Estimated Glomerular Filt Rate 94 ml/min (>60); GFR (African American) 114 ML/MIN (>60)
[2023-10-31 14:28] LABS: Albumin Level 3.6 g/dl (3.5-5.0); Albumin/Globulin Ratio 1.3 (1.1-1.8); Calcium 9.1 mg/dl (8.4-10.2); Carbon Dioxide 26 mmol/L (22.0-30.0); Globulin 2.8 g/dL (1.3-3.2); Glucose 89 mg/dl (74-100); Total Protein,Serum 6.4 g/dl (6.3-8.2)
[2023-10-31 14:46] LABS: HCG Qualitative, Serum Negative (Negative)
[2023-10-31 15:37] LABS: INR 1.11 (0.9-1.1); Prothrombin Time 11.9 seconds (10.1-12.5)
[2023-11-01 13:47] LABS: HIV Screen 4th Generation wRfx Non Reactive (Non Reactive)
[2023-11-06 13:12] LABS: Hepatitis C Genotype 1a (.)
== END 2023-10-31 23:59 | disposition home or self-care (01) ==
LOC: LAB 12:43
PROVIDERS: PCP Nurse Practitioner Family; Visit Provider Nurse Practitioner Family
DX: B19.20 Unspecified viral hepatitis C without hepatic coma (principal)
CPT/HCPCS: 36415; 80053; 84703; 85025; 85610; 86703; 87522; 87902; G0432

== ENCOUNTER 2023-11-01 09:29 | Outpatient (POV) | payer MEDICAID, SELFPAY ==
--- NOTE | 2023-11-01 09:34 | A.OFFVIS_ITS ---
[facility] Pain Management SOAP Note Subjective:: Patient is a pleasant 37-year-old female who presents today for 6-week follow- up. Patient rates her pain today a 7 out of 10. She denies any new trauma or injury. She states she continues to have the same pain she has been having however it just seems to be worsening. Patient states she used to be able to work for 4-hour shifts and did not really have pain until she went home and sat down. Now she states that within being at work about an hour she starts feeling like she cannot move is easy and that certain activities like bending over or lifting objects causes worsening pain. Patient has just recently started physical therapy and has only gone for her first real visit. She does state that she has her next visit tomorrow. She is prescribed diclofenac 75 mg twice a day and tizanidine 4 mg at bedtime. Patient has been prescribed compounded cream in the past however did not feel like it gave significant relief. Patient has been prescribed Suboxone therapy from an outside provider in the past. Her Rod has been reviewed and is appropriate. Review of Systems: General: No recent weight changes, no fever, no sleep disturbances Respiratory: No cough, no shortness of air, no recurring pulmonary infections Cardiovascular/peripheral vascular: No chest pain, no palpitations, no edema, no shortness of breath Gastrointestinal: No new onset incontinence, normal bowel movements reported Genitourinary: No new onset incontinence Musculoskeletal: Neck pain, upper extremity pain Psychiatric: [Normal mood/affect] Neurological: [Denies weakness in extremities], [denies balance issues] Objective:: Physical Exam: General: Alert and oriented x3, no acute distress, pleasant and cooperative Lungs: Respirations even and unlabored, symmetrical chest expansion Eyes: PERRL Musculoskeletal: Flexion and extension of cervical [spine] somewhat guarded secondary to pain, [antalgic gait noted] Neurological: Speech clear, no gross sensory deficit Assessment:: Degenerative disc disease of cervical spine with cervical radiculopathy symptoms, low back pain, bilateral leg weakness Plan:: I will refill the patient's diclofenac 75 mg twice a day and provide a 1 month supply of this medication. Patient felt like her tizanidine might not be doing as well. We will discontinue this medication and try her on baclofen 5 mg 3 times daily and provide a 14-day supply of this medication. I have counseled patient to call our office and let us know if it was beneficial and that she was recommended to not take the dose during the day unless she does not have anywhere to go in order for her to see if it causes drowsiness. Patient acknowledges understanding and agrees with this plan of care. I have also discussed with her that we will still plan on resubmitting for the MRI of her cervical spine after she has completed 6 weeks of PT. Patient will return to clinic in 1 month for reevaluation of symptoms and plan of care. Patient has been instructed to contact the clinic with any concerns before the next appointment. Dr. Fontenot has reviewed this note and agrees with this plan of care. This note was dictated using voice recognition software and make contain errors or omissions. [facility] Disclaimer: The information contained in this section may have been updated after the patient was seen, as this information can be updated by other users. Medical History (Updated 10/29/23 @ 15:35 by Bing Rodgers APRN) BMI 34.0-34.9,adult BMI 37.0-37.9, adult Neck pain Cervical radiculopathy Sciatica associated with disorder of lumbar spine Surgical History History of delivery Hx of cholecystectomy History of tubal ligation Family History Other No significant family history Social History Smoking Status: Never smoker alcohol intake: former substance use type: crack/cocaine current occupational status: employed Travel in the last 8 weeks: None household members: significant other housing: other marital status: single
[2023-11-01 09:40] VITALS: BP 155/88; PULSE 65; RESP 16; O2SAT 96; BMI 36.6
== END 2023-11-01 23:59 | disposition home or self-care (01) ==
PROVIDERS: PCP Internal Medicine; Visit Provider Nurse Practitioner Family
DX: M50.10 Cervical disc disorder with radiculopathy, unspecified cervical region (principal); M54.50 Low back pain, unspecified; R53.1 Weakness
CPT/HCPCS: 99212; G0463

== ENCOUNTER 2023-11-02 08:00 | Outpatient (RCR) | payer MEDICAID, SELFPAY ==
--- NOTE | 2023-10-23 10:38 | HMH.OTOPEV ---
OT Inpatient Evaluation Rehab OT Outpatient Eval Start: 10/23/23 10:24 Freq: Status: Active Protocol: Document 10/23/23 10:24 RMARSHALL (Rec: 10/23/23 10:36 RMARSHALL Laptop) E-signed By Denise Santiago, OT Outpatient Therapy Subjective History Subjective History Pt is a 37 year old female who reports to therapy for initial evaluation to bilateral wrist/hands. Pt's symptoms began in May 2023 . She explains she has intermittent numbness/pain in thumb, index, and middle fingers referring up to elbow bilaterally. Pt is right hand dominant, but feels her left hand is worst. 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 Pt is currently wearing bilateral wrist braces at night and during work. Pt does demonstrate with decreased AROM at Left wrist, but her right wrist is within normal limits. 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 Pt will continue to be seen twice a week in order to address all deficits. STG Supervisor [employer] strength Right hand: 30 lbs Left hand: 35 lbs LTG Supervisor [employer] strength Right hand: 40 lbs Left hand: 40 lbs New diagnosis of cancer in past 12 No months? Chief Complaint Pain,Paresthesia,Weakness, Decreased Supervisor [employer] Strength Symptom Type Ache,Throb,Sharp,Numbness, Tingling Symptoms Relieved By Nothing Symptoms Aggravated By Physical Activity,Lifting Prior Functional Limitations None Current Functional Limitations Reaching,Lifting,Housework, Dressing,Sleeping,Recreation Activity Symptom Description Constant but Variable Level of pain today (0-10) 5 Pain scale - at its best (0-10) 5 Pain scale - at its worst (0-10) 8 Wrist/Hand Eval Wrist Range of Motion Right Wrist Extension Active Range of Motion ( 70 degrees degrees) Wrist Flexion Active Range of Motion ( 75 degrees degrees) Wrist Radial Deviation Active Range of 35 degrees Motion (degrees) Wrist Ulnar Deviation Active Range of 28 degrees Motion (degrees) Left Wrist Extension Active Range of Motion ( 28 degrees degrees) Wrist Flexion Active Range of Motion ( 60 degrees degrees) Wrist Radial Deviation Active Range of 30 degrees Motion (degrees) Wrist Ulnar Deviation Active Range of 20 degrees Motion (degrees) Wrist Manual Muscle Testing Right Wrist Extension Strength Grade 3+ Fair+ Wrist Flexion Strength Grade 3+ Fair+ Wrist Radial Deviation Strength Grade 3+ Fair+ Wrist Ulnar Deviation Strength Grade 3+ Fair+ Left Wrist Extension Strength Grade 3+ Fair+ Wrist Flexion Strength Grade 3+ Fair+ Wrist Radial Deviation Strength Grade 3+ Fair+ Wrist Ulnar Deviation Strength Grade 3+ Fair+ Supervisor [employer]/Pinch Strength Right Supervisor [employer] Strength Measurement (lbs) 25 Left Supervisor [employer] Strength Measurement (lbs) 12 QuickDA Activities Please rate your ability to do the following activities in the last week by selecting the number below the appropriate response. 1. Open a tight or new jar. Moderate difficulty 2. Do heavy railroad watchman (e.g., wash Severe difficulty calle, floors). 3. Carry a shopping bag or briefcase. Moderate difficulty 4. Wash your back. Moderate difficulty 5. Use a knife to cut food. Moderate difficulty 6. Recreational activities in which you Severe difficulty take some force or impact through your arm, shoulder, or hand (e.g., golf, hammering, tennis, etc.). 7. During the past week, to what extent Quite a bit has your arm, shoulder or hand problem interfered with your normal social activities with family, friends, neighbors or groups? 8. During the past week, were you Moderately limited limited in your work or other regular daily activites as a result of your arm, shoulder or hand problem? 9. Arm, shoulder or hand pain. Severe 10. Tingling (pins and needles) in your Extreme arm, shoulder or hand. 11. During the past week, how much Severe difficulty difficulty have you had sleeping because of the pain in your arm, shoulder or hand? Quick DASH 40 Work Module (optional) The following questions ask about the impact of your arm, shoulder or hand problem on your ability to work (including homemaking if that is your main work role). 1. Using your usual technique for your Moderate difficulty work? 2. Doing your usual work because of arm, Moderate difficulty shoulder or hand pain? 3. Doing your work as well as you would Moderate difficulty like? 4. Spending your usual amount of time Moderate difficulty doing your work? Quick Dash Work Module Score 12 OT Outpatient Assessment Impairments Problems/Impairments Impaired Range of Motion, Impaired Strength,Impaired Endurance,Impaired Lifting, Impaired Household Care, Impaired Work Activities, Subjective C/O Pain Prognosis Rehab Potential Good Clinical Impression Consistent with Diagnosis Yes Short Term Goals Number of Weeks 3 Increase Range of Motion Yes: L: Flex: 65 Ext: 40 Increase Strength Yes: 4,4-/5 throughout bilateral wrists Increase Endurance Yes: Pt will tolerate bilateral wrist exercises for ~10 minutes prior to rest. Decrease Subjective C/O Pain Yes: 6/10 at worst Patient to be Ind w/ HEP Yes: AAROM/AROM exercises; yellow theraputty Improve Quick Dash Score Yes: Activities: 35 or below Siene Maker Goals Number of Weeks 6 Increase Range of Motion Yes: L wrist: Flex: 70 Ext: 60 Increase Strength Yes: 5/5 throughout bilateral wrists Increase Endurance Yes: Pt will tolerate bilateral wrist exercises for ~20 minutes prior to rest. Decrease Subjective C/O Pain Yes: 3/10 at worst Patient to be Ind w/ Advanced HEP Yes: Advanced strengthening exercises Improve Quick Dash Score Yes: Activities: 30 or below Outpatient Therapy Plan of Care Treatment Plan May Include Therapeutic Exercise Including Home Yes Exercise Program Manual Therapy Techniques Yes Neuromuscular Re-education Yes Therapeutic Activities to Return to Yes Previous Functional/Work Level ADL/Self Care Education Yes Dry Needling Yes Thermal Modalities Yes Electrical Stimulation Yes Ultrasound/Phonophoresis Yes Iontophoresis Yes Parrafin Yes Orthotics/Bracing/Splinting Yes Massage Yes Eval/Re-Eval Yes Frequency Times per week 2 Duration Number of Weeks 6 Addendums This patient is a candidate for social No or vocational rehab? Patient/Guardian verbally acknowledges Yes understanding of treatment program and consents to further treatment? Patient/Guardian verbally acknowledges Yes understanding of diagnosis, prognosis and goals for treatment? Eval Complexity OT Charge 52982 - Moderate Complexity Shoulder/Elbow Eval Shoulder Objective Measurements Elbow Objective Measurements PHYSICIAN CERTIFICATION: I certify the specified therapy services for Nahomy Kim are required, authorized, and reviewed every 30 days.
== END 2023-11-02 09:10 | disposition home or self-care (01) ==
LOC: OT 08:00
PROVIDERS: Visit Provider Specialist
DX: G56.03 Carpal tunnel syndrome, bilateral upper limbs (principal)
CPT/HCPCS: 97166

== ENCOUNTER 2023-11-02 09:00 | Outpatient (RCR) | payer MEDICAID, SELFPAY | END 2023-11-02 10:00 | disposition home or self-care (01) | LOC: PT 09:00 | PROVIDERS: Visit Provider Specialist | DX: M54.2 Cervicalgia (principal); G56.03 Carpal tunnel syndrome, bilateral upper limbs | CPT/HCPCS: 97012; 97110; 97163 ==

== ENCOUNTER 2023-11-19 11:08 | Emergency (ER) | payer MEDICAID, SELFPAY ==
[2023-11-19 11:19] VITALS: BP 115/62; PULSE 58; RESP 16; O2SAT 99; BMI 35.7
--- NOTE | 2023-11-19 11:53 | ED_ITS ---
Discharge Plan Disposition Patient Disposition: Home, Self-Care Prescriptions Prescriptions: New gabapentin 100 mg capsule 200 mg PO TID Qty: 10 0RF No Action buprenorphine-naloxone 8-2 mg film 1 film sublingual DAILY amitriptyline 10 mg tablet 20 mg PO HS Qty: 30 5RF Rx Instructions: 10 mg p.o. an hour before bedtime for a week may increase up to 20 mg p.o. nightly if persistent pain cyclobenzaprine 10 mg tablet 10 mg PO HS Qty: 30 0RF sofosbuvir-velpatasvir [Epclusa] 400-100 mg tablet 1 tab PO DAILY 84 Days Qty: 84 0RF diclofenac sodium 75 mg tablet,delayed release (DR/EC) 75 mg PO BID Qty: 60 0RF baclofen 5 mg tablet 5 mg PO TID Qty: 42 0RF Referrals Follow up/Referrals: Dyllan Abreu DO [Primary Care Provider] - See instructions Activity Restrictions/Add. Instructions Additional Instructions/Restrictions: 100 to 200 mg of gabapentin up to 3 times daily. See your family provider t omorrow and report with symptoms changes. Call your family doctor to establish care for this visit to the emergency department and schedule follow-up within 48 hours to ensure improvement. If you have any worsening of your condition or any other concerning signs or symptoms, return to the emergency department or your primary care doctor for further evaluation. Clinical Impressions Clinical Impression: Neuropathy Discharge ED Provider: Bernard Velarde General Adult HPI General Chief complaint: Extremity Problem,Nontraumatic Stated complaint: Pain in feet, hands numb Time Seen by Provider: 11/19/23 11:33 Mode of Arrival: Ambulatory Source of Information: Patient Limitations: No Limitations Description of Symptoms (Recalled from ER Triage Doc. by RN): patient reports numbness in her hands for 4-5 months and now numbness in her feet x1 week. patient has been seen by pain managment and neuro. Patient has an appt tomorrow with pcp. History of Present Illness HPI narrative: Please note that above description of symptoms, in this electronic medical record under categorization of recalled from ER triage doctor by RN are reflective of an initial nursing assessment, however, is not reflective of my full history and physical exam that was personally taken and clarified. Consequentially, this preceding description of symptoms, which may include the patient's categorized chief complaint in the EMR, do not reflect my personal clinical impression, and the ultimate description of history of present illness and patient stated complaints should be deferred to this section of the note. Unless stated otherwise or congruent with this section of the note, additional signs, symptoms, or incongruence should be interpreted as inaccurate with my clinical impression. Related Data Home Medications Medication Instructions Recorded Confirmed buprenorphine 8 mg-naloxone 2 mg 1 film sublingual DAILY 06/20/23 11/01/23 sublingual film Previous Rx's Medication Instructions Recorded amitriptyline 10 mg tablet 20 mg (2 x 10 mg) PO HS #30 tabs 10/10/23 cyclobenzaprine 10 mg tablet 10 mg PO HS #30 tabs 10/29/23 sofosbuvir 400 mg-velpatasvir 100 1 tab PO DAILY 12 weeks #84 tabs 10/29/23 mg tablet (Epclusa) baclofen 5 mg tablet 5 mg PO TID #42 tabs 11/01/23 diclofenac sodium 75 mg 75 mg PO BID #60 tabs 11/01/23 tablet,delayed release gabapentin 100 mg capsule 200 mg (2 x 100 mg) PO TID #10 caps 11/19/23 Allergies Allergy/AdvReac Type Severity Reaction Status Date / Time No Known Allergies Allergy Verified 10/29/23 10:45 [facility] Disclaimer: The information contained in this section may have been updated after the patient was seen, as this information can be updated by other users. Medical History (Updated 11/19/23 @ 12:01 by Bernard Velarde MD) BMI 34.0-34.9,adult BMI 37.0-37.9, adult Neck pain Cervical radiculopathy Sciatica associated with disorder of lumbar spine Surgical History History of delivery Hx of cholecystectomy History of tubal ligation Family History Other No significant family history Social History Smoking Status: Former smoker alcohol intake: former substance use type: crack/cocaine current occupational status: employed Travel in the last 8 weeks: None household members: significant other housing: other marital status: single ROS Obtained: Yes All systems reviewed & no additional complaints except as documented Physical Exam General General appearance: alert and in no apparent distress Head Head exam: atraumatic and normocephalic Eye Eye exam: Present normal appearance, PERRL and EOMI ENT ENT exam: Present mucous membranes moist Neck Neck exam: Present normal inspection, full ROM and trachea midline Respiratory Respiratory exam: Absent respiratory distress, wheezes, stridor, accessory muscle use or prolonged expiratory phase Cardiovascular Cardiovascular exam: Present normal rhythm Abdominal Exam Abdominal exam: Present soft; Absent distention, tenderness, guarding, rebound or rigidity Extremities Exam Extremities exam: Absent edema Neurological Exam Neurological exam: Present alert, oriented X3, CN II-XII intact, normal gait and motor sensory deficit (Hyperesthesia on bilateral lower extremities) Skin Skin exam: Present warm and dry; Absent diaphoresis or erythema Medical Decision Making Medical Records Medical records reviewed: Yes I reviewed the patient's medical records. Rod Inquiry Pt receiving controlled substance: No Rod was queried for this patient: No Vital Signs: 11/19/23 11:19 Pulse Rate [Right Brachial] 58 L Respiratory Rate 16 Blood Pressure [Right Arm] 115/62 Blood Pressure Mean [Right Arm] 79 Blood Pressure Source [Right Arm] Automatic Cuff Blood Pressure Position [Right Arm] Sitting 02 Sat by Pulse Oximetry 99 Oxygen Delivery Method Room Air Medical Decision Narrative: Is a 37-year-old female with history of degenerative disc disease in the cervical spine, hepatitis C currently organizing treatment, chronic stocking glove neuropathy following with her family doctor presenting with neuropathy. Patient states that she has been doing physical therapy, going through the motions in order to get MRI, still not having relief. States that the neuropathy is associated with hyperalgesia and pain. Bilateral upper lower extremities. No bowel or bladder dysfunction, no weakness, but is debilitating and causing her significant discomfort. Supposed to family doctor tomorrow for further management. Patient taking Suboxone for her management of opiate use disorder remission, but no other medications. No new symptoms, just progressively worsening over the past few months. Differential includes spinal cord pathology, vasculopathy, vasculitis, metabolic abnormality, among others. Because patient has been seen for this numerous times in the past, hematologic workup was negative and patient is incredibly difficult stick, conversation was had regarding this and ultimately, blood work not deemed necessary at this time. Because patient seeing family doctor tomorrow, 24 hours with gabapentin will be prescribed to trial at home so she can report to her family doctor in order to know if this helps and may need further prescriptions until follow-up. MRI was considered, but not deemed necessary. Patient not having red flag signs, weakness, fever, bowel or bladder dysfunction, etc. Because patient at baseline without signs or symptoms of clinical decompensation, deemed appropriate for discharge. Results were relayed to patient who voiced understanding and were agreeable to outpatient management and follow up. I discussed my clinical impression with patient and answered all questions. At this time, the evidence for any other entities in the differential is insufficient to warrant any further testing or ED observation. This was explained as well. Advisory was given that persistent or worsening symptoms require further evaluation. I confirmed the understanding of this discussion. On reevaluation, additional tests/treatment. Consultants obs given patient presentation, workup, history, this most likely represents. Less likely. [facility] [employer] disclaimer Much of this encounter note is an electronic surgical supervisor spoken language to printed text. Electronic surgical supervisor of the spoken language may permit errors. Although I have reviewed the note, some errors may still exist. Critical Care Critical Care Time Critical Care Time: No
[2023-11-19] MEDS: GABAPENTIN 100MG CAPSULE 200 MG PO (12:10)
[2023-11-19 12:17] VITALS: BP 107/63; PULSE 67; RESP 18; TEMP 36.7; O2SAT 99
== END 2023-11-19 12:17 | disposition home or self-care (01) ==
PROVIDERS: Emergency Provider Emergency Medicine; PCP Internal Medicine
DX: G62.9 Polyneuropathy, unspecified (principal)
CPT/HCPCS: 99283

== ENCOUNTER 2023-12-05 08:50 | Outpatient (POV) | payer MEDICAID, SELFPAY ==
[2023-12-05 08:57] VITALS: BP 122/74; PULSE 62; RESP 18; O2SAT 98; BMI 34.9
--- NOTE | 2023-12-05 09:25 | A.OFFVIS_ITS ---
[facility] Disclaimer: The information contained in this section may have been updated after the patient was seen, as this information can be updated by other users. Medical History (Updated 11/20/23 @ 10:10 by Bing Rodgers APRN) BMI 34.0-34.9,adult BMI 37.0-37.9, adult Neck pain Cervical radiculopathy Sciatica associated with disorder of lumbar spine Surgical History History of delivery Hx of cholecystectomy History of tubal ligation Family History Other No significant family history Social History Smoking Status: Former smoker alcohol intake: former substance use type: crack/cocaine current occupational status: employed Travel in the last 8 weeks: None household members: significant other housing: other marital status: single PM Subjective & Objective Subjective Subjective:: Patient is a pleasant 38-year-old female who presents today for follow-up. Today she rates her pain a 9 out of 10. Patient denies any new trauma or injury. She does state that she continues to have significant pain throughout her body including her neck and upper extremities and low back and lower extremities. Patient states she just feels like it is progressively worsening over time. She states that she frequently has trouble moving around due to all of her joint pain. Patient feels like she has not gotten relief significant improvement with any of the options we have tried at this point. She states that her primary care is also tried other medications and none of them seem to provide any additional improvement. Patient has been tried on meloxicam, diclofenac tizanidine and baclofen with no additional changes. Patient was also tried on compounded cream from our office however did not get significant improvement. Patient is on Suboxone therapy from an outside provider. Patient does state that she recently had to go to the ER due to worsening pain and that they did give her gabapentin 100 mg 3 times a day and that did help. Patient states that when her primary care doctor asked regarding what they had prescribed she told them and that she felt like her attitude changed towards her. Patient states that she did not ask for this medication however it has been the only real thing that has helped. Patient has not had any updated imaging of her low back in the last 1 was denied by her insurance. Patient states that she is not 100% sure why it was denied because there was not a provider available to let her know. Her Rod has been reviewed and is appropriate. Review of Systems: General: No recent weight changes, no fever, no sleep disturbances Respiratory: No cough, no shortness of air, no recurring pulmonary infections Cardiovascular/peripheral vascular: No chest pain, no palpitations, no edema, no shortness of breath Gastrointestinal: No new onset incontinence, normal bowel movements reported Genitourinary: No new onset incontinence Musculoskeletal: Generalized joint pain, low back pain, leg pain Psychiatric: [Normal mood/affect] Neurological: [Denies weakness in extremities], [denies balance issues] Pain at rest (0-10 scale): 9 Objective Objective:: Physical Exam: General: Alert and oriented x3, no acute distress, pleasant and cooperative Lungs: Respirations even and unlabored, symmetrical chest expansion Eyes: PERRL Musculoskeletal: Flexion and extension of lumbar [spine] somewhat guarded secondary to pain, [antalgic gait noted] Neurological: Speech clear, no gross sensory deficit Has patient had previous pain injection?: No Conservative treatment options previously tried: NSAIDS Length of treatment: Longer than 6 weeks, Home exercise plan Length of treatment: Longer than 6 weeks and Prescription medications Length of treatment: Longer than 6 weeks Meds Home Medications and Allergies Home Medications Medication Instructions Recorded Confirmed Type sofosbuvir 400 mg-velpatasvir 100 1 tab PO DAILY 12 weeks #84 tabs 10/29/23 12/05/23 Rx mg tablet (Epclusa) baclofen 5 mg tablet 5 mg PO TID PRN Pain 11/20/23 12/05/23 History buprenorphine 8 mg-naloxone 2 mg 1 tab sublingual DAILY 11/20/23 12/05/23 History sublingual tablet diclofenac sodium 75 mg 75 mg PO BID PRN Pain 11/20/23 12/05/23 History tablet,delayed release New Prescriptions to Start Prescriptions: Allergies Allergy/AdvReac Type Severity Reaction Status Date / Time No Known Allergies Allergy Verified 11/20/23 09:33 Assessment and Plan *Assessment and plan (1) Low back pain radiating to both legs: Status: Acute Category: Medical Code(s): M54.50 - Low back pain, unspecified; M79.604 - Pain in right leg; M79.605 - Pain in left leg (2) Cervical radiculopathy: Status: Acute Category: Medical Code(s): M54.12 - Radiculopathy, cervical region (3) Cervical spondylosis: Problem Comment: Cervical spondylosis with radicular signs, symptoms. MRI denied by insurance company pending physical therapy trial. Active follow-up with pain management Status: Chronic Category: Medical Code(s): M47.812 - Spondylosis without myelopathy or radiculopathy, cervical region (4) Chronic neck pain: Status: Chronic Category: Medical Code(s): M54.2 - Cervicalgia; G89.29 - Other chronic pain Plan I have discussed with the patient that I do think it would be very beneficial to have updated imaging of her low back. Patient is agreeable to this. I will order physical therapy for evaluation and treatment of her low back and leg symptoms. I have reviewed over the patient's most recent lab work and will send in a 1 month supply of gabapentin 100 mg 3 times daily. Patient is agreeable to this. Patient will return to clinic in 1 month for reevaluation of symptoms and plan of care. Patient has been instructed to contact the clinic with any concerns before the next appointment. Dr. Fontenot has reviewed this note and agrees with this plan of care. This note was dictated using voice recognition software and make contain errors or omissions.
== END 2023-12-05 23:59 | disposition home or self-care (01) ==
PROVIDERS: PCP Internal Medicine; Visit Provider Nurse Practitioner Family
DX: G89.29 Other chronic pain (principal); M47.22 Other spondylosis with radiculopathy, cervical region
CPT/HCPCS: 99212; G0463

== ENCOUNTER 2023-12-06 18:37 | Emergency (ER) | payer MEDICAID, SELFPAY ==
[2023-12-06 18:39] VITALS: BP 126/76; PULSE 60; RESP 16; TEMP 36.9; O2SAT 100; BMI 34.9
[2023-12-06 19:01] VITALS: BP 126/76; PULSE 60; O2SAT 100
--- NOTE | 2023-12-06 19:07 | ED_ITS ---
Discharge Plan Disposition Patient Disposition: Home, Self-Care Prescriptions Prescriptions: New nortriptyline 10 mg capsule 10 mg PO HS Qty: 30 0RF No Action buprenorphine-naloxone 8-2 mg tablet, sublingual 1 tab sublingual DAILY diclofenac sodium 75 mg tablet,delayed release (DR/EC) 75 mg PO BID PRN (Reason: Pain) baclofen 5 mg tablet 5 mg PO TID PRN (Reason: Pain) sofosbuvir-velpatasvir [Epclusa] 400-100 mg tablet 1 tab PO DAILY 84 Days Qty: 84 0RF gabapentin 100 mg capsule 100 mg PO TID Qty: 90 0RF Referrals Follow up/Referrals: Dyllan Abreu DO [Primary Care Provider] - See instructions Bam Ordaz MD [Staff Physician] - See instructions Activity Restrictions/Add. Instructions Additional Instructions/Restrictions: Follow-up with family medicine regarding this visit to the emergency department. Nortriptyline has been sent to the pharmacy, 10 mg each night. The dose for nortriptyline can be increased every 1 to 2 weeks by 10 mg increments based on response and your ability to tolerate the side effects. If you begin having depression, thoughts of hurting yourself or others, or any other concerning side effects, discontinue taking medication and come to the emergency department or talk to your family doctor. Regarding carpal tunnel, Dr. Sanchez's information is here, he is the orthopedist who will do carpal tunnel release surgery. Contact his office to set up appointment. Also contact Dr. Kwong's office for follow-up and concern for potential tarsal tunnel syndrome. Clinical Impressions Clinical Impression: CTS (carpal tunnel syndrome), Neuropathy involving both lower extremities Discharge ED Provider: Bernard Velarde General Adult HPI General Stated complaint: pain in hands feet legs Time Seen by Provider: 12/06/23 18:40 History of Present Illness HPI narrative: Please note that above description of symptoms, in this electronic medical record under categorization of recalled from ER triage doctor by RN are reflective of an initial nursing assessment, however, is not reflective of my full history and physical exam that was personally taken and clarified. Consequentially, this preceding description of symptoms, which may include the patient's categorized chief complaint in the EMR, do not reflect my personal clinical impression, and the ultimate description of history of present illness and patient stated complaints should be deferred to this section of the note. Unless stated otherwise or congruent with this section of the note, additional signs, symptoms, or incongruence should be interpreted as inaccurate with my clinical impression. Related Data Home Medications Medication Instructions Recorded Confirmed baclofen 5 mg tablet 5 mg PO TID PRN Pain 11/20/23 12/05/23 buprenorphine 8 mg-naloxone 2 mg 1 tab sublingual DAILY 11/20/23 12/05/23 sublingual tablet diclofenac sodium 75 mg 75 mg PO BID PRN Pain 11/20/23 12/05/23 tablet,delayed release Previous Rx's Medication Instructions Recorded sofosbuvir 400 mg-velpatasvir 100 1 tab PO DAILY 12 weeks #84 tabs 10/29/23 mg tablet (Epclusa) gabapentin 100 mg capsule 100 mg PO TID #90 caps 12/05/23 nortriptyline 10 mg capsule 10 mg PO HS #30 caps 12/06/23 Allergies Allergy/AdvReac Type Severity Reaction Status Date / Time No Known Allergies Allergy Verified 11/20/23 09:33 [facility] Disclaimer: The information contained in this section may have been updated after the patient was seen, as this information can be updated by other users. Medical History (Updated 12/06/23 @ 19:06 by Bernard Velarde MD) BMI 34.0-34.9,adult BMI 37.0-37.9, adult Neck pain Cervical radiculopathy Sciatica associated with disorder of lumbar spine Surgical History History of delivery Hx of cholecystectomy History of tubal ligation Family History Other No significant family history Social History Smoking Status: Former smoker alcohol intake: former substance use type: crack/cocaine current occupational status: employed Travel in the last 8 weeks: None household members: significant other housing: other marital status: single ROS Obtained: Yes All systems reviewed & no additional complaints except as documented Physical Exam General General appearance: alert and other (Appears to be uncomfortable, but no acute distress) Head Head exam: atraumatic and normocephalic Eye Eye exam: Present normal appearance, PERRL and EOMI Neck Neck exam: Present normal inspection, full ROM and trachea midline Respiratory Respiratory exam: Absent respiratory distress, wheezes, stridor, accessory muscle use or prolonged expiratory phase Cardiovascular Cardiovascular exam: Present other (Pulses equal symmetric in upper and lower extremities) Abdominal Exam Abdominal exam: Present soft; Absent distention, tenderness or pulsatile mass Extremities Exam Extremities exam: Present other (Tenderness with minor touch bilateral hands and feet. Motor function intact); Absent edema Neurological Exam Neurological exam: Present alert, oriented X3 and CN II-XII intact; Absent motor sensory deficit Skin Skin exam: Present warm and dry; Absent diaphoresis or erythema Medical Decision Making Medical Records Medical records reviewed: Yes I reviewed the patient's medical records. Rod Inquiry Pt receiving controlled substance: No Rod was queried for this patient: No Vital Signs: 12/06/23 19:01 Pulse Rate 60 Blood Pressure 126/76 Blood Pressure Mean 92 02 Sat by Pulse Oximetry 100 Oxygen Delivery Method Room Air Medical Decision Narrative: Is a 38-year-old female well-known to this emergency department for stocking glove neuropathy presenting with concern for bilateral hand and feet tingling and pain. This is been going on for a while, I personally seen patient a number of times. Patient states that the gabapentin I prescribed last time I saw her helps modestly, takes the edge off the pain and tingling. Followed up with her family doctor and states that she had a bad experience at that appointment, but was able to follow-up with neurology. Neurology did EMG (on chart review) diagnostic of mild carpal tunnel syndrome bilateral upper extremities. Has not had any follow-up with orthopedic surgery for carpal tunnel release surgery. Patient states that she is still having discomfort that is keeping her from sleeping and causing emotional exhaustion at this point. Denies SI, HI, trauma, neck pain, back pain, bowel or bladder dysfunction, weakness, or any other concerns. History was obtained via conversation with patient and chart review. On arrival, patient hemodynamically stable, alert, oriented x4, appropriate, GCS 15, moving all extremities spontaneously, pupils equal and reactive to light. Full physical exam performed and significant for uncomfortable appearing woman who is in no acute distress. Constantly rubbing hands and feet. Hyperalgesic, decreased light touch. Differential includes carpal tunnel, tarsal tunnel, metabolic, endocrinologic, vasculitic, obstructive, among others. Because patient without motor deficits, neck or back pain, fevers, red flag signs or symptoms, imaging of the neck and back was considered, but not deemed necessary. Hematologic labs considered for the same reason, but not deemed necessary for the same reasons. Abundant reassurance was offered to patient. Conversation was had regarding gabapentin, patient feels comfortable continuing what she is taking, but does not want to have medications that cause her to be tired. Conversation about tricyclic antidepressants was had with her, risks associated with taking this medication. Patient voiced understanding of the risks and benefits, states that she is agreeable to trying this medication every night to help with neuropathic pain. 10 mg sent to pharmacy. Close return precautions were given. Because patient at baseline without signs or symptoms of clinical decompensation, deemed appropriate for discharge. I discussed my clinical impression with patient and answered all questions. At this time, the evidence for any other entities in the differential is insufficient to warrant any further testing or ED observation. This was explained as well. Advisory was given that persistent or worsening symptoms require further evaluation. I confirmed the understanding of this discussion. [employer] disclaimer Much of this encounter note is an electronic precision instrument maker spoken language to printed text. Electronic precision instrument maker of the spoken language may permit errors. Although I have reviewed the note, some errors may still exist. Critical Care Critical Care Time Critical Care Time: No
[2023-12-06 19:11] VITALS: BP 126/76; PULSE 60; RESP 16; TEMP 36.9; O2SAT 100
== END 2023-12-06 19:12 | disposition home or self-care (01) ==
PROVIDERS: Emergency Provider Emergency Medicine; PCP Internal Medicine
DX: G57.93 Unspecified mononeuropathy of bilateral lower limbs (principal); G56.00 Carpal tunnel syndrome, unspecified upper limb; M79.604 Pain in right leg; M79.605 Pain in left leg; M79.641 Pain in right hand; M79.642 Pain in left hand
CPT/HCPCS: 99283

== ENCOUNTER 2023-12-25 10:28 | Outpatient (CLI) | payer MEDICAID, SELFPAY ==
--- NOTE | 2023-12-25 10:38 | XR_ITS ---
FINAL REPORT CLINICAL HISTORY: lt wrist pain FINDINGS: Left Wrist Three views were obtained. There is no acute fracture or dislocation. The joint spaces appear normal. No soft tissue abnormality is identified. IMPRESSION: No acute process. Reviewed, Interpreted and Dictated by Bassam Guevara MD Transcribed by Julissa Seymour Authenticated and [facility]
== END 2023-12-25 23:59 | disposition home or self-care (01) ==
LOC: RAD 10:31
PROVIDERS: Visit Provider Physician Assistant
DX: G56.02 Carpal tunnel syndrome, left upper limb (principal)
CPT/HCPCS: 73110

== ENCOUNTER 2024-01-09 08:06 | Outpatient (POV) | payer MEDICAID, SELFPAY ==
--- NOTE | 2024-01-09 08:36 | A.OFFVIS_ITS ---
[facility] Disclaimer: The information contained in this section may have been updated after the patient was seen, as this information can be updated by other users. Medical History BMI 34.0-34.9,adult BMI 37.0-37.9, adult Neck pain Cervical radiculopathy Sciatica associated with disorder of lumbar spine Surgical History History of delivery Hx of cholecystectomy History of tubal ligation Family History Other No significant family history Social History Smoking Status: Never smoker alcohol intake: former substance use type: crack/cocaine current occupational status: employed Travel in the last 8 weeks: None household members: significant other housing: other marital status: single PM Subjective & Objective Subjective Subjective:: Patient is a pleasant 38-year-old female who presents today for medication refill and follow-up. Today she rates her pain a 5 out of 10. Patient denies any new trauma or injury. She does state the gabapentin is helping and denies any side effects. Patient is currently managed with gabapentin 100 mg 3 times a day. She is also still continuing her physical therapy and that she does states she still would like to proceed forward with the imaging of her low back when she completes this. Patient has been tried on meloxicam diclofenac, tizanidine and baclofen with no additional changes. Her Rod has been reviewed and is appropriate. Review of Systems: General: No recent weight changes, no fever, no sleep disturbances Respiratory: No cough, no shortness of air, no recurring pulmonary infections Cardiovascular/peripheral vascular: No chest pain, no palpitations, no edema, no shortness of breath Gastrointestinal: No new onset incontinence, normal bowel movements reported Genitourinary: No new onset incontinence Musculoskeletal: Low back pain Psychiatric: [Normal mood/affect] Neurological: [Denies weakness in extremities], [denies balance issues] Pain at rest (0-10 scale): 5 Objective Objective:: Physical Exam: General: Alert and oriented x3, no acute distress, pleasant and cooperative Lungs: Respirations even and unlabored, symmetrical chest expansion Eyes: PERRL Musculoskeletal: Flexion and extension of lumbar [spine] somewhat guarded secondary to pain, [antalgic gait noted] Neurological: Speech clear, no gross sensory deficit Has patient had previous pain injection?: No Conservative treatment options previously tried: Physical Therapy Length of treatment: Ongoing Meds Home Medications and Allergies Home Medications ?Medication ?Instructions ?Recorded ?Confirmed ?Type buprenorphine 8 mg-naloxone 2 mg 1 tab sublingual DAILY 11/20/23 01/02/24 History sublingual tablet gabapentin 100 mg capsule 100 mg PO TID #90 caps 12/05/23 01/02/24 Rx New Prescriptions to Start Prescriptions: Allergies Allergy/AdvReac Type Severity Reaction Status Date / Time No Known Allergies Allergy Verified 01/02/24 08:52 Assessment and Plan *Assessment and plan (1) Low back pain radiating to both legs: Status: Acute Category: Medical Code(s): M54.50 - Low back pain, unspecified; M79.604 - Pain in right leg; M79.605 - Pain in left leg Plan I will send in a 1 month refill of her gabapentin and have her return to clinic in 1 month. Patient was counseled that we will plan on resubmitting for the lumbar MRI without contrast. Patient is in agreement with this. Patient has been instructed to contact the clinic with any concerns before the next appointment. Dr. Fontenot has reviewed this note and agrees with this plan of care. This note was dictated using voice recognition software and make contain errors or omissions. All injections are used with Lidocaine or Bupivacaine and Depo Medrol.
[2024-01-09 08:44] VITALS: BP 142/64; PULSE 70; RESP 16; O2SAT 99; BMI 34.9
== END 2024-01-09 23:59 | disposition home or self-care (01) ==
PROVIDERS: PCP Internal Medicine; Visit Provider Nurse Practitioner Family
DX: M54.41 Lumbago with sciatica, right side (principal); M54.42 Lumbago with sciatica, left side
CPT/HCPCS: 99212; G0463

== ENCOUNTER 2024-01-17 08:00 | Outpatient (RCR) | payer MEDICAID, SELFPAY ==
--- NOTE | 2023-12-25 09:57 | HMH.PTOPEV ---
PT Outpatient Evaluation Rehab PT Outpatient Evaluation Start: 12/25/23 09:10 Freq: Status: Active Protocol: Document 12/25/23 09:10 PDESEROUX (Rec: 12/25/23 09:57 PDESEROUX Desktop) E-signed By Jaspreet Benedict, PT Outpatient Therapy Subjective History Subjective History Pt. is a 38 year old female who presents to [facility] Outpatient Physical Therapy Services in [place] for the initial evaluation this date( 12/24/33) w/ c/o chronic and intermittent lumbar and BLE(R> L) P!, numbness, and burning of insidious onset since 2023. Pt. 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 Pt. reports working 4 hours shifts at the time that were tolerable, however, pt. reports she can only stand 1-hour shifts secondary to symptoms worsening. 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 Pt. c/o intermittent sharp and shooting P! that will refer to the knees, but also c/o numbness in the digits of B/L feet. Pt. denies having recent diagnostic imaging for current complaint, denies having injections for current complaint. Pt. reports she was supposed to have Physical Therapy at [facility] regarding complaints of BUE and cervical symptoms, however, stated missing too many appointments secondary to transportation issues. Pt. RTMD today() regrading BUE hand numbness. Pt. RTMD(Neurologist ) 01/02/24. Pt. RTMD([facility]) 01/05/24. Pt. denies bowel/bladder dysfunction at this time. Pt. reports intermittent(x1) saddle paresthesia after sitting for a prolonged period of time on a bleacher. Physical Therapist instructed pt. to contact Neurologist if symptoms persisted, pt. vocalized understanding. Current medications include Neurontin and Suboxone. PMH includes Cholecystectomy, Section x1, cervical spine bulging discs, cervical spine DDD, and Hepatitis C. New diagnosis of cancer in past 12 No months? Chief Complaint Pain,Stiff,Paresthesia Symptom Type Ache,Sharp,Burning,Numbness, Tingling,Shooting Symptoms Relieved By Rest/Positioning,Ice, Prescription Meds Symptoms Aggravated By Standing,Bending/Stooping, Physical Activity,Lifting Prior Functional Limitations None Current Functional Limitations Lifting,Standing,Recreation Activity,Bending/Stooping Symptom Description Constant but Variable,Activity Dependent Level of pain today (0-10) 5 Pain scale - at its best (0-10) 2 Pain scale - at its worst (0-10) 9 Lumbopelvic Eval Posture Thoracic Spine Posture Standing Position Neutral Lumbar Spine Posture Standing Position Neutral Assistive device Assistive Devices None / NA Gait Observation General Gait Pattern Observation No Deviations/Normal Palapation tenderness bilateral lumbar spinal tenderness Yes: L5/S1 buttock tenderness Yes: B/L piriformis mms. Lumbar/Sacral Palpation Findings Tenderness Lumbar/Sacral Palpation Overall Comment grade 3 +TTP to TTP assessment above Accessory Movement L-spine Vertebrae Accessory Movements Central P/A [place],Right P/A that Elicit Symptoms [place],Left P/A [place] L5 bilateral S1 bilateral Range of Motion Lumbar Spine Active Flexion Range of 49 Motion (degrees) Lumbar Spine Active Extension Range of 12 Motion (degrees) Left Lumbar Spine Lateral Flexion Active 11 Range of Motion (degrees) Right Lumbar Spine Lateral Flexion 14 Active Range of Motion (degrees) Lumbar Spine ROM Limitations Soft Tissue Tightness,Muscle Tone,Pain Manual Muscle Test Left Knee Extension Strength Grade 4 Good Knee Flexion Strength Grade 4 Good Hip Flexion Strength Grade 4 Good Hip Abduction Strength Grade 4 Good Hip Adduction Strength Grade 4 Good Hip External Rotation Strength Grade 4 Good Hip Internal Rotation Strength Grade 4 Good Hip Extension Strength Grade 4 Good Gluteus Reagan Strength Grade 4 Good Extensor Hallucis Longus Strength Grade 4 Good Ankle Dorsiflexion Strength Grade 4 Good Gastronemius/Soleus Strength Grade 4 Good Right Knee Extension Strength Grade 4- Good- Knee Flexion Strength Grade 4- Good- Hip Flexion Strength Grade 4- Good- Hip Abduction Strength Grade 4- Good- Hip Adduction Strength Grade 4- Good- Hip External Rotation Strength Grade 4- Good- Hip Internal Rotation Strength Grade 4- Good- Hip Extension Strength Grade 4- Good- Gluteus Reagan Strength Grade 4- Good- Extensor Hallucis Longus Strength Grade 4 Good Ankle Dorsiflexion Strength Grade 4 Good Gastronemius/Soleus Strength Grade 4 Good DTR Rt Patellar 1+ Lt Patellar 1+ Rt Gastroc/Soleus 0 Lt Gastroc/Soleus 0 Altered Sensation Bilateral Comment light touch discrimination vocalizes symmetrical in BLEs grossly Special Tests Lumbar Spine Screen Positive Hip Piriformis Test Negative Left,Positive Right Sciatic Nerve Tension Test Negative Left,Positive Right Crossed Straight Leg Raise Test Positive Right Lumbar Long [place] Distraction Test/Manual Positive Traction Outpatient Therapy Assessment Impairments Problems/Impairmments Palpation Tenderness,Impaired Range of Motion,Impaired Strength,Impaired Standing, Impaired Sitting,Impaired Lifting,Impaired Bending, Impaired Work Activities, Subjective C/O Pain,Impaired Self Care/Self Management Prognosis Rehab Potential Good Comment w/ HEP compliancy Clinical Impression Consistent with Diagnosis Yes Consistent with lumbar radiculopathy, R Short Term Goals Number of Weeks 2 Decreased Palpation Tenderness Yes: grade 1-2 +TTP to TTP assessment above Decrease Subjective C/O Pain Yes: worse:10/04 Patient to be Ind w/ HEP Yes Information Systems Security Developer Goals Number of Weeks 4-6 Decreased Palpation Tenderness Yes: grade 1 +TTP to TTP assessment above Increase Range of Motion Yes: lumbar spine WNL grossly w/o difficulty Increase Strength Yes: 4+ to 5 BLE MMT scores grossly Increase Ability to Stand Yes Increase Ability to Sit Yes Improve Ability to Bend Yes Improve Tolerance to Work Activities Yes: Pt. will be able to tolerate >1hr. at work w/o difficulty Improve Oswestry Score Yes Decrease Subjective C/O Pain Yes: worse:-08/04 Patient to be Ind w/ Advanced HEP Yes Outpatient Therapy Plan of Care Treatment Plan May Include Therapeutic Exercise Including Home Yes Exercise Program Manual Therapy Techniques Yes Neuromuscular Re-education Yes Therapeutic Activities to Return to Yes Previous Functional/Work Level ADL/Self Care Education Yes Mechanical Traction Yes Thermal Modalities Yes Electrical Stimulation Yes Ultrasound/Phonophoresis Yes Iontophoresis Yes Vasopneumatic Compression Pump Yes Massage Yes Eval/Re-Eval Yes Frequency Times per week 2 Duration Number of Weeks 4-6 Addendums This patient is a candidate for social No or vocational rehab? Patient/Guardian verbally acknowledges Yes understanding of treatment program and consents to further treatment? Patient/Guardian verbally acknowledges Yes understanding of diagnosis, prognosis and goals for treatment? Eval Complexity PT Charges 13455 - Moderate Complexity Shoulder/Elbow Eval Shoulder Objective Measurements Elbow Objective Measurements PHYSICIAN CERTIFICATION: I certify the specified therapy services for Nahomy Kim are required, authorized, and reviewed every 30 days.
== END 2024-02-21 15:03 | disposition home or self-care (01) ==
LOC: PT 08:00
PROVIDERS: Visit Provider Nurse Practitioner Family
DX: M54.50 Low back pain, unspecified (principal)
CPT/HCPCS: 97110; 97140; 97163

== ENCOUNTER 2024-02-07 09:18 | Outpatient (POV) | payer MEDICAID, SELFPAY ==
[2024-02-07 09:35] VITALS: BP 134/69; PULSE 59; RESP 16; O2SAT 98; BMI 35.7
--- NOTE | 2024-02-07 09:37 | A.OFFVIS_ITS ---
[facility] Disclaimer: The information contained in this section may have been updated after the patient was seen, as this information can be updated by other users. Medical History BMI 34.0-34.9,adult BMI 37.0-37.9, adult Neck pain Cervical radiculopathy Sciatica associated with disorder of lumbar spine Surgical History History of delivery Hx of cholecystectomy History of tubal ligation Family History Other No significant family history Social History Smoking Status: Never smoker alcohol intake: former substance use type: crack/cocaine current occupational status: unemployed Travel in the last 8 weeks: None household members: significant other housing: other marital status: single PM Subjective & Objective Subjective Subjective:: Patient is a pleasant 38-year-old female who presents today for medication refill and follow-up. Today she rates her pain a 5 out of 10. She denies any new trauma or injury. She does state that she has officially completed physical therapy however she felt like she got no additional benefit from this. Patient has continued to do at home stretching and an exercise with no additional changes. She does states she still has the chronic low back pain that does interfere with her ability perform activities of daily living. Patient is currently managed with gabapentin 100 mg 3 times a day. She denies any side effects from this medication. Her Rod has been reviewed and is appropriate. Review of Systems: General: No recent weight changes, no fever, no sleep disturbances Respiratory: No cough, no shortness of air, no recurring pulmonary infections Cardiovascular/peripheral vascular: No chest pain, no palpitations, no edema, no shortness of breath Gastrointestinal: No new onset incontinence, normal bowel movements reported Genitourinary: No new onset incontinence Musculoskeletal: Low back pain Psychiatric: [Normal mood/affect] Neurological: [Denies weakness in extremities], [denies balance issues] Pain at rest (0-10 scale): 5 Objective Objective:: Physical Exam: General: Alert and oriented x3, no acute distress, pleasant and cooperative Lungs: Respirations even and unlabored, symmetrical chest expansion Eyes: PERRL Musculoskeletal: Flexion and extension of lumbar [spine] somewhat guarded secondary to pain, [antalgic gait noted] Neurological: Speech clear, no gross sensory deficit Has patient had previous pain injection?: No Conservative treatment options previously tried: Home exercise plan Length of treatment: Longer than 6 weeks and Physical Therapy Length of treatment: Completed 6 weeks Meds Home Medications and Allergies Home Medications ?Medication ?Instructions ?Recorded ?Confirmed ?Type buprenorphine 8 mg-naloxone 2 mg 1 tab sublingual DAILY 11/20/23 01/09/24 History sublingual tablet gabapentin 100 mg capsule 100 mg PO TID #90 caps 01/09/24 Rx sofosbuvir 400 mg-velpatasvir 100 1 tab PO DAILY #28 tabs 01/25/24 Rx mg tablet New Prescriptions to Start Prescriptions: Allergies Allergy/AdvReac Type Severity Reaction Status Date / Time No Known Allergies Allergy Verified 01/02/24 08:52 Assessment and Plan *Assessment and plan (1) Low back pain radiating to both legs: Status: Acute Category: Medical Code(s): M54.50 - Low back pain, unspecified; M79.604 - Pain in right leg; M79.605 - Pain in left leg Plan MPatient continues to experience chronic pain throughout her low back. Patient did not notice any additional improvement with the completion of physical therapy. I have discussed with the patient that I will resubmit for MRI without contrast. We will contact the patient once we have insurance approval for this imaging. I will send in a refill of her gabapentin. Patient will return to clinic in 1 month for reevaluation of symptoms and plan of care. Patient has been instructed to contact the clinic with any concerns before the next appointment. Dr. Fontenot has reviewed this note and agrees with this plan of care. This note was dictated using voice recognition software and make contain errors or omissions. All injections are used with Lidocaine or Bupivacaine and Depo Medrol.
== END 2024-02-07 23:59 | disposition home or self-care (01) ==
PROVIDERS: PCP Internal Medicine; Visit Provider Nurse Practitioner Family
DX: M54.50 Low back pain, unspecified (principal); M79.604 Pain in right leg; M79.605 Pain in left leg
CPT/HCPCS: 99212; G0463

== ENCOUNTER 2024-03-07 15:40 | Outpatient (CLI) | payer MEDICAID, SELFPAY ==
--- NOTE | 2024-03-07 15:41 | MR_ITS ---
FINAL REPORT CLINICAL HISTORY: BLE radiculopathy bilateral foot pain, worse in the right since May 2023 COMPARISON: None FINDINGS: Multiplanar MR imaging of the lumbar spine was performed without contrast. On the sagittal T2-weighted images, there is disc degeneration at several levels. The vertebral alignment is normal. There is no evidence of fracture. No bony mass is identified. The conus has an unremarkable appearance. No significant canal stenosis is identified. T11-12: No significant central canal stenosis or neural foraminal narrowing. T12-L1: No significant central canal stenosis or neural foraminal narrowing. L1-2: No significant central canal stenosis or neuroforaminal narrowing. L2-3: No significant central canal stenosis or neuroforaminal narrowing. L3-4: An annular bulge is present, with a small left foraminal disc protrusion producing mild left neural foraminal narrowing. L4-5: An annular bulge is present with mild right neural foraminal narrowing. L5-S1: An annular bulge is present. No significant central canal stenosis or neuroforaminal narrowing. IMPRESSION: Mild degenerative change in the lower lumbar spine as described. Reviewed, Interpreted and Dictated by Cam Rodriguez III, MD Transcribed by Jaclyn Blanton Authenticated and [facility]
== END 2024-03-07 23:59 | disposition home or self-care (01) ==
LOC: RAD 15:41
PROVIDERS: PCP Internal Medicine; Visit Provider Nurse Practitioner Family
DX: M54.50 Low back pain, unspecified (principal); M79.604 Pain in right leg; M79.605 Pain in left leg
CPT/HCPCS: 72148

== ENCOUNTER 2024-03-10 09:50 | Outpatient (POV) | payer MEDICAID, SELFPAY ==
[2024-03-10 10:02] VITALS: BP 116/67; PULSE 61; RESP 16; O2SAT 100; BMI 35.7
--- NOTE | 2024-03-10 10:22 | EXP.PAIN.SOA ---
[facility] Disclaimer: The information contained in this section may have been updated after the patient was seen, as this information can be updated by other users. Medical History (Updated 03/10/24 @ 10:24 by Nikki Sanchez APRN) Dog bite of right hand BMI 34.0-34.9,adult BMI 37.0-37.9, adult Neck pain Cervical radiculopathy Sciatica associated with disorder of lumbar spine Surgical History History of delivery Hx of cholecystectomy History of tubal ligation Family History Other No significant family history Social History Smoking Status: Never smoker alcohol intake: former substance use type: crack/cocaine current occupational status: other Travel in the last 8 weeks: None household members: significant other housing: other marital status: single PM Subjective & Objective Subjective Subjective:: Patient is a pleasant 38-year-old female who presents today for medication refill and follow-up. Today she rates her pain a 5 out of 10. She denies any new trauma or injury. She does state that she continues to have worsening pain in her bilateral feet. Patient does state that it is primarily more on the right side than the left. Patient was also able to go ahead and get her lumbar MRI completed. Patient does state that she has thought about our previous conversations about injection therapy and that she is possibly interested in the future. Patient is currently managed with gabapentin 100 mg 3 times a day. She denies any side effects from this medication. She does feel like that she has gotten a little bit more accustomed to the current medication and feels like it is not lasting as long at bedtime and that she is waking up in the middle of the night. Her Rod has been reviewed and is appropriate. Review of Systems: General: No recent weight changes, no fever, no sleep disturbances Respiratory: No cough, no shortness of air, no recurring pulmonary infections Cardiovascular/peripheral vascular: No chest pain, no palpitations, no edema, no shortness of breath Gastrointestinal: No new onset incontinence, normal bowel movements reported Genitourinary: No new onset incontinence Musculoskeletal: Low back pain, bilateral feet pain Psychiatric: [Normal mood/affect] Neurological: [Denies weakness in extremities], [denies balance issues] Pain at rest (0-10 scale): 5 Objective Objective:: Physical Exam: General: Alert and oriented x3, no acute distress, pleasant and cooperative Lungs: Respirations even and unlabored, symmetrical chest expansion Eyes: PERRL Musculoskeletal: Flexion and extension of lumbar [spine] somewhat guarded secondary to pain, [antalgic gait noted] Neurological: Speech clear, no gross sensory deficit Has patient had previous pain injection?: No Conservative treatment options previously tried: Home exercise plan Length of treatment: Longer than 12 weeks Meds Home Medications and Allergies Home Medications ?Medication ?Instructions ?Recorded ?Confirmed ?Type buprenorphine 8 mg-naloxone 2 mg 1 tab sublingual DAILY 11/20/23 03/10/24 History sublingual tablet sofosbuvir 400 mg-velpatasvir 100 1 tab PO DAILY #28 tabs 01/25/24 03/10/24 Rx mg tablet gabapentin 100 mg capsule 100 mg PO TID #90 caps 02/07/24 03/10/24 Rx New Prescriptions to Start Prescriptions: Allergies Allergy/AdvReac Type Severity Reaction Status Date / Time No Known Allergies Allergy Verified 02/07/24 09:57 Assessment and Plan *Assessment and plan (1) Degenerative disc disease, lumbar: Status: Acute Category: Medical Code(s): M51.369 - Other intervertebral disc degeneration, lumbar region without mention of lumbar back pain or lower extremity pain (2) Low back pain radiating to both legs: Status: Acute Category: Medical Code(s): M54.50 - Low back pain, unspecified; M79.604 - Pain in right leg; M79.605 - Pain in left leg Plan Patient was counseled regarding her updated imaging that I do believe she would benefit from a lumbar epidural at the L3-L4 level. I reviewed over risk and benefits and we will discuss this at future visits. I will send in refills of her gabapentin and change it to 100 mg 4 times a day allowing her to take 2 tablets at bedtime. Patient will be given a 3-month supply of this medication. Patient will return to clinic in 3 months for reevaluation of symptoms and plan of care. Patient has been instructed to contact the clinic with any concerns before the next appointment. Dr. Fontenot has reviewed this note and agrees with this plan of care. This note was dictated using voice recognition software and make contain errors or omissions. All injections are used with Lidocaine or Bupivacaine and Depo Medrol.
== END 2024-03-10 23:59 | disposition home or self-care (01) ==
PROVIDERS: PCP Internal Medicine; Visit Provider Nurse Practitioner Family
DX: M51.362 Other intervertebral disc degeneration, lumbar region with discogenic back pain and lower extremity pain (principal)
CPT/HCPCS: 99212; G0463

== ENCOUNTER 2024-06-09 08:48 | Outpatient (POV) | payer MEDICAID, SELFPAY ==
--- NOTE | 2024-06-09 08:55 | A.OFFVIS_ITS ---
[facility] Disclaimer: The information contained in this section may have been updated after the patient was seen, as this information can be updated by other users. Medical History BMI 34.0-34.9,adult BMI 37.0-37.9, adult Cervical radiculopathy Dog bite of right hand Neck pain Sciatica associated with disorder of lumbar spine Surgical History History of delivery History of tubal ligation Hx of cholecystectomy Family History Other No significant family history Social History Smoking Status: Never smoker alcohol intake: former substance use type: crack/cocaine current occupational status: other Travel in the last 8 weeks: None household members: significant other housing: other marital status: single Have you lived/traveled outside [place] in past 30 days?: No Contact w/someone who lives/traveled outside [place] past 30 days?: No Exposure to someone with infectious disease in past 14 days?: No Do you have a fever (greater than 100.4 F or 38 C)?: No Have you tested positive for COVID-19: No Exposed to someone with COVID-19 in past 14 days?: No Do you have a sore throat?: No Do you have a cough?: No Do you have any weakness?: No Do you have any diarrhea?: No Are you experiencing any unusual bleeding?: No Do you have any muscle aches/pain?: No Do you have any abdominal pain?: No Are you experiencing loss of taste or smell?: No PM Subjective & Objective Subjective Subjective:: Patient is a pleasant 38-year-old female who presents today for medication refill. Today she rates her pain a 6 out of 10. She denies any new trauma or injury. She does state that she has been having more right shoulder pain that does seem to flareup around the same time of her back pain however today she states that the back is more bothersome and the shoulder is moving easier. She states that she just feels like her right shoulder is very heavy. She is currently managed with gabapentin 100 mg 4 times a day. She denies any side effects from this medication. She does state in the past that the compounded cream only gave minimal relief however she has tried Biofreeze patches and they did seem to help and that she is thinking about going to get some of these. Her Rod has been reviewed and is appropriate. Review of Systems: General: No recent weight changes, no fever, no sleep disturbances Respiratory: No cough, no shortness of air, no recurring pulmonary infections Cardiovascular/peripheral vascular: No chest pain, no palpitations, no edema, no shortness of breath Gastrointestinal: No new onset incontinence, normal bowel movements reported Genitourinary: No new onset incontinence Musculoskeletal: Low back pain, right shoulder pain, mid back pain Psychiatric: [Normal mood/affect] Neurological: [Denies weakness in extremities], [denies balance issues] Pain at rest (0-10 scale): 6 Objective Objective:: Physical Exam: General: Alert and oriented x3, no acute distress, pleasant and cooperative Lungs: Respirations even and unlabored, symmetrical chest expansion Eyes: PERRL Musculoskeletal: Flexion and extension of thoracic [spine] somewhat guarded secondary to pain, point tenderness around right rhomboid and right thoracic paraspinous Neurological: Speech clear, no gross sensory deficit Has patient had previous pain injection?: No Conservative treatment options previously tried: Home exercise plan Length of treatment: Longer than 12 weeks Meds Home Medications and Allergies Home Medications ?Medication ?Instructions ?Recorded ?Confirmed ?Type buprenorphine 8 mg-naloxone 2 mg 1 tab sublingual DAILY 11/20/23 06/09/24 History sublingual tablet cyclobenzaprine 5 mg tablet 5 mg PO TID PRN muscle spasm #90 06/09/24 Rx tabs gabapentin 100 mg capsule 100 mg PO QID #120 caps 06/09/24 Rx New Prescriptions to Start Prescriptions: cyclobenzaprine Daniel,Nikki A gabapentin Sanchez,Nikki A Allergies Allergy/AdvReac Type Severity Reaction Status Date / Time No Known Allergies Allergy Verified 05/08/24 10:17 Assessment and Plan *Assessment and plan (1) Low back pain radiating to both legs: Status: Acute Category: Medical Code(s): M54.50 - Low back pain, unspecified; M79.604 - Pain in right leg; M79.605 - Pain in left leg (2) Neuropathy: Status: Acute Category: Medical Code(s): G62.9 - Polyneuropathy, unspecified (3) Degenerative disc disease, lumbar: Status: Acute Category: Medical Code(s): M51.369 - Other intervertebral disc degeneration, lumbar region without mention of lumbar back pain or lower extremity pain (4) Right shoulder pain: Status: Acute Category: Medical Code(s): M25.511 - Pain in right shoulder (5) Myofascial pain on right side: Status: Acute Category: Medical Code(s): M79.18 - Myalgia, other site Plan I will refill the patient's gabapentin and provide a 3-month supply of this medication. I did discuss with the patient regarding her right mid back pain that does radiate down from her right shoulder that she may benefit from trigger point injections at this location. Patient did have point tenderness along her right rhomboid muscles and right thoracic paraspinous muscles. We will follow- up with this at future visits. I will send in a 1 month supply of Flexeril 5 mg 3 times daily as needed. Patient was counseled to call our office if she decides that she would like to try the injections between now and her next visit. Patient acknowledges understanding. Patient will return to clinic in 3 months for reevaluation of symptoms and plan of care. Patient has been instructed to contact the clinic with any concerns before the next appointment. Dr. Fontenot has reviewed this note and agrees with this plan of care. This note was dictated using voice recognition software and make contain errors or omissions. All injections are used with Lidocaine, Bupivacaine and Depo Medrol. Occasionally urine drug screen is needed to verify patient's compliance with our office pain contract. This is ordered based off specific treatments related to chronic pain with the potential to abuse certain medications.
[2024-06-09 09:00] VITALS: BP 149/87; PULSE 79; RESP 16; O2SAT 95; BMI 38.2
== END 2024-06-09 23:59 | disposition home or self-care (01) ==
PROVIDERS: PCP Internal Medicine; Visit Provider Nurse Practitioner Family
DX: M54.50 Low back pain, unspecified (principal); M79.604 Pain in right leg; M79.605 Pain in left leg; G62.9 Polyneuropathy, unspecified; M51.362 Other intervertebral disc degeneration, lumbar region with discogenic back pain and lower extremity pain; M25.511 Pain in right shoulder; M79.18 Myalgia, other site
CPT/HCPCS: 99212; G0463

== ENCOUNTER 2024-06-24 13:22 | Outpatient (CLI) | payer MEDICAID, SELFPAY ==
[2024-06-24 14:43] LABS: Hemoglobin A1C 4.3 % (4.0-6.0)
[2024-06-24 14:50] LABS: Chol/HDL Ratio 3.4 (1-3.5); Cholesterol 155 mg/dl (140-200); HDL Cholesterol 45 mg/dl (40-60); Triglycerides 61 mg/dl (30-150); VLDL Cholesterol 12 mg/dL (0-40)
[2024-06-24 15:01] LABS: Direct LDL Cholesterol 97.74 mg/dL (100-129)
[2024-06-24 15:06] LABS: 25-OH Vitamin D, Total 19.6 ng/mL (30-100)
[2024-06-24 15:22] LABS: Albumin Level 4.1 g/dl (3.5-5.0); Chloride 103 mmol/L (98-107); Potassium 4.4 mmoL/L (3.5-5.1); Sodium 139 mmol/L (136-145)
[2024-06-24 15:25] LABS: Alanine Aminotransferase 14 U/L (12-78); Albumin/Globulin Ratio 1.5 (1.1-1.8); Alkaline Phosphatase 62 U/L (38-126); Anion Gap 12.4 mEq/L (5-15); Aspartate Amino Transferase 25 U/L (14-36); Bilirubin,Total 0.7 mg/dl (0.2-1.3); Blood Urea Nitrogen 10 mg/dl (7-17); Carbon Dioxide 28 mmol/L (22.0-30.0); Estimated Glomerular Filt Rate 94 ml/min (>60); GFR (African American) 113 ML/MIN (>60); Globulin 2.7 g/dL (1.3-3.2); Total Protein,Serum 6.8 g/dl (6.3-8.2)
[2024-06-24 15:26] LABS: Calcium 9.1 mg/dl (8.4-10.2); Glucose 84 mg/dl (74-100)
== END 2024-06-24 23:59 | disposition home or self-care (01) ==
LOC: LAB 13:24
PROVIDERS: Internal Medicine; PCP Nurse Practitioner Family; Visit Provider Nurse Practitioner Family
DX: B19.20 Unspecified viral hepatitis C without hepatic coma (principal); R79.9 Abnormal finding of blood chemistry, unspecified; Z13.1 Encounter for screening for diabetes mellitus; Z13.220 Encounter for screening for lipoid disorders; Z13.21 Encounter for screening for nutritional disorder
CPT/HCPCS: 36415; 80053; 80061; 82306; 83036; 87522

== ENCOUNTER 2024-06-27 18:00 | Outpatient (CLI) | payer MEDICAID, SELFPAY | END 2024-06-27 23:59 | disposition home or self-care (01) | LOC: LAB.DROPOF 18:01 | PROVIDERS: PCP Nurse Practitioner Family; Visit Provider Nurse Practitioner Family | DX: B19.20 Unspecified viral hepatitis C without hepatic coma (principal) | CPT/HCPCS: 87522 ==

== ENCOUNTER 2024-09-04 10:44 | Outpatient (POV) | payer MEDICAID, SELFPAY ==
[2024-09-04 11:02] VITALS: BP 122/60; PULSE 64; RESP 18; O2SAT 99; BMI 38.2
--- NOTE | 2024-09-04 11:22 | EXP.PAIN.SOA ---
[facility] Disclaimer: The information contained in this section may have been updated after the patient was seen, as this information can be updated by other users. Medical History BMI 34.0-34.9,adult BMI 37.0-37.9, adult Cervical radiculopathy Dog bite of right hand Neck pain Sciatica associated with disorder of lumbar spine Surgical History History of delivery History of tubal ligation Hx of cholecystectomy Family History Other No significant family history Social History Smoking Status: Never smoker alcohol intake: former substance use type: crack/cocaine current occupational status: other Travel in the last 8 weeks: None household members: significant other housing: other marital status: single PM Subjective & Objective Subjective Subjective:: Patient is a pleasant 38-year-old female who presents today for 3-month follow-up. Today she rates her pain a 6 out of 10. She denies any new trauma or injury. She does states she is still doing well with her gabapentin to 100 mg 4 times a day, Flexeril 5 mg 3 times a day as needed and compounded cream from our office. Her her Rod has been reviewed and is appropriate. Review of Systems: General: No recent weight changes, no fever, no sleep disturbances Respiratory: No cough, no shortness of air, no recurring pulmonary infections Cardiovascular/peripheral vascular: No chest pain, no palpitations, no edema, no shortness of breath Gastrointestinal: No new onset incontinence, normal bowel movements reported Genitourinary: No new onset incontinence Musculoskeletal: Low back pain Psychiatric: [Normal mood/affect] Neurological: [Denies weakness in extremities], [denies balance issues] Pain at rest (0-10 scale): 6 Objective Objective:: Physical Exam: General: Alert and oriented x3, no acute distress, pleasant and cooperative Lungs: Respirations even and unlabored, symmetrical chest expansion Eyes: PERRL Musculoskeletal: Flexion and extension of lumbar [spine] somewhat guarded secondary to pain, [antalgic gait noted] Neurological: Speech clear, no gross sensory deficit Has patient had previous pain injection?: No Conservative treatment options previously tried: Home exercise plan Length of treatment: Longer than 12 weeks Meds Home Medications and Allergies Home Medications ?Medication ?Instructions ?Recorded ?Confirmed ?Type buprenorphine 8 mg-naloxone 2 mg 1 tab sublingual DAILY 11/20/23 09/04/24 History sublingual tablet cyclobenzaprine 5 mg tablet 5 mg PO TID PRN muscle spasm #90 06/09/24 09/04/24 Rx tabs gabapentin 100 mg capsule 100 mg PO QID #120 caps 06/09/24 09/04/24 Rx cholecalciferol (vitamin D3) 1,250 1,250 mcg PO WEEKLY #12 caps 06/25/24 09/04/24 Rx mcg (50,000 unit) capsule buprenorphine 2 mg-naloxone 0.5 mg 2 tab sublingual DAILY 07/17/24 09/04/24 History sublingual tablet semaglutide (weight loss) 0.25 0.25 mg (0.5 mL) SQ WEEKLY #2 mL 07/17/24 09/04/24 Rx mg/0.5 mL subcutaneous pen injector (Wegovy) New Prescriptions to Start Prescriptions: Allergies Allergy/AdvReac Type Severity Reaction Status Date / Time No Known Allergies Allergy Verified 07/17/24 14:00 Assessment and Plan *Assessment and plan (1) Degenerative disc disease, lumbar: Status: Acute Category: Medical Code(s): M51.369 - Other intervertebral disc degeneration, lumbar region without mention of lumbar back pain or lower extremity pain (2) Right shoulder pain: Status: Acute Category: Medical Code(s): M25.511 - Pain in right shoulder Plan I will refill the patient's gabapentin and Flexeril and provide a 3-month supply of these medications. Patient will return to clinic in 3 months. Patient has been instructed to contact the clinic with any concerns before the next appointment. Dr. Fontenot has reviewed this note and agrees with this plan of care. This note was dictated using voice recognition software and make contain errors or omissions. All injections are used with Lidocaine, Bupivacaine and Depo Medrol. Occasionally urine drug screen is needed to verify patient's compliance with our office pain contract. This is ordered based off specific treatments related to chronic pain with the potential to abuse certain medications.
== END 2024-09-04 23:59 | disposition home or self-care (01) ==
PROVIDERS: PCP Internal Medicine; Visit Provider Nurse Practitioner Family
DX: M51.369 Other intervertebral disc degeneration, lumbar region without mention of lumbar back pain or lower extremity pain (principal); M25.511 Pain in right shoulder
CPT/HCPCS: 99212; G0463

== ENCOUNTER 2024-10-03 12:09 | Outpatient (CLI) | payer MEDICAID, SELFPAY ==
[2024-10-03 12:24] LABS: Hepatitis C Genotype ND
[2024-10-03 12:45] LABS: Basophils % 0.7 % (0.1-2.0); Eosinophils # 0.1 Kmm3 (0.0-0.4); Eosinophils % 1.8 % (0.1-12.0); Hematocrit 38.3 % (37.0-47.0); Hemoglobin 13.2 g/dL (12.2-16.2); Immature Granulocytes # 0.01 10^3uL; Immature Granulocytes % 0.2 %; Lymphocytes # 1.7 K/mm3 (0.7-4.5); Lymphocytes % 39.5 % (10-50); Mean Corpuscular HGB Conc 34.5 g/dL (31.8-35.4); Monocytes # 0.3 K/mm3 (0.1-1.0); Monocytes % 6.8 % (1.7-9.3); Neutrophils # 2.2 K/mm3 (1.8-7.8); Nucleated Red Blood Cells # 0 10^3/uL; Nucleated Red Blood Cells % 0 %; Platelet Count 238 K/mm3 (142-424); Red Cell Distribution Width 12.3 % (11.5-17.5); Red Cell Distribution Width-SD 39.5 fL; White Blood Count 4.4 K/mm3 (4.8-10.8)
[2024-10-03 12:55] LABS: Chloride 106 mmol/L (98-107)
[2024-10-03 12:56] LABS: Albumin Level 4.3 g/dl (3.5-5.0); Potassium 4.4 mmoL/L (3.5-5.1); Sodium 138 mmol/L (136-145)
[2024-10-03 12:59] LABS: Alanine Aminotransferase 14 U/L (12-78); Albumin/Globulin Ratio 1.7 (1.1-1.8); Alkaline Phosphatase 58 U/L (38-126); Anion Gap 8.4 mEq/L (5-15); Aspartate Amino Transferase 22 U/L (14-36); Bilirubin,Total 0.6 mg/dl (0.2-1.3); Blood Urea Nitrogen 8 mg/dl (7-17); Carbon Dioxide 28 mmol/L (22.0-30.0); Estimated Glomerular Filt Rate 80 ml/min (>60); GFR (African American) 97 ML/MIN (>60); Globulin 2.6 g/dL (1.3-3.2); Glucose 125 mg/dl (74-100); Total Protein,Serum 6.9 g/dl (6.3-8.2)
[2024-10-03 13:39] LABS: HIV Combo NEGATIVE (Negative)
[2024-10-03 15:14] LABS: RPR W/RFX Titers Nonreactive (Nonreactive)
[2024-10-04 05:14] LABS: Hep B Surface Ab, Qual Reactive (.); Hepatitis B Core Antibody, IgM Negative (Negative); Hepatitis B Surface Antigen Negative (Negative)
[2024-10-06 13:16] LABS: QuantiFERON-TB Gold Plus Negative (Negative)
== END 2024-10-03 23:59 | disposition home or self-care (01) ==
LOC: LAB 12:10
PROVIDERS: PCP Internal Medicine; Visit Provider Nurse Practitioner Family
DX: F11.11 Opioid abuse, in remission (principal); F14.11 Cocaine abuse, in remission; B18.2 Chronic viral hepatitis C
CPT/HCPCS: 36415; 80053; 85025; 86480; 86592; 86705; 86706; 87340; 87389; 87522

== ENCOUNTER 2024-12-04 09:00 | Outpatient (POV) | payer MEDICAID, SELFPAY ==
--- OUTSIDE RECORDS SUMMARY | 2024-10-22 08:00 | XMS_ITS | Encounter Summary ---
Author Organization Healthcare Address [address] [place] [address] Care Team Providers Care Outpatient Case Manager Name Role Phone Pcp, No Primary Care Provider Unavailabl e Reason for Referral * Consultation (Routine) - Authorized Specialty Diagnoses / Procedures Referred By Chinmay jorge Referred To Contact Diagnoses Morbid obesity (CMS/HCC) Dyspnea on exertion Mild persistent asthma without complication Katie Katz PA [address] [place] [address] Phone: tel: fax: Referral ID Status Reason Start Date Expiration Date V isits Requested Visits Authorized [id number] Authorized 10/22/2024 04/23/2026 1 1 Reason for Visit * Reason Comments Consult * Consultation (Routine) - Closed Specialty Diagnoses / Procedures Referred By Chinmay jorge Referred To Contact Diagnoses Morbid obesity (CMS/HCC) Rose Marie Becker PA [address] [facility] [address] [place] [address] Phone: tel: fax: Referral ID Status Reason Start Date Expiration Date V isits Requested Visits Authorized [id number] Closed Specialty Services Required 10/08/2024 04/09/2026 1 1 Encounter Details Date Type Department Care Team (Late st Contact Info) Description 10/22/2024 8:00 AM EDT Office Visit [facility] [address] [place] [address] Katie Katz, DONNA [address] [place] [address] Mild persistent asthma without complication (Primary Dx); Morbid obesity (CMS/HCC); Dyspnea on exertion; Encounter for preoperative pulmonary examination Social History Tobacco Use Types Packs/Day Years Used Date Smoking Tobacco: Never Passive Smoke Exposure: Never Smokeless Tobacco: Never Tobacco Cessation:Counseling Given: Not Answered Alcohol Use Standard Drinks/Week Comments Not Currently 0 (1 standard drink = 0.6 oz pur e alcohol) PHQ-2 Answer Date Recorded Patient Health Questionnaire-2 Score 0 10/22/2024 PHQ-9 Answer Date Recorded Patient Health Questionnaire-9 Score 0 10/22/2024 Comments No Sex and Gender Information Value Date Recorded Sex Assigned at Not on file Legal Sex Female 8:21 PM EDT Gender Identity Not on file Sexual Orientation Not on file documented as of this encounter Last Filed Vital Signs Vital Sign Reading Time Taken Comments Blood Pressure 110/74 10/22/2024 8:01 AM EDT Pulse 63 10/22/2024 8:01 AM EDT Temperature 37.2 C (98.9 F) 10/22/2024 8:01 AM EDT Respiratory Rate 14 10/22/2024 8:01 AM EDT Oxygen Saturation 98% 10/22/2024 8:01 AM EDT RA Inhaled Oxygen Concentration - - Weight 108 kg (238 lb 5.1 oz) 10/22/2024 8:01 AM EDT Height 165.1 cm (5' 5 ) 10/22/2024 8:01 AM EDT Body Mass Index 39.66 10/22/2024 8:01 AM EDT documented in this encounter Functional Status * Over the past 2 weeks, how often have you been bothered by any of the following problems? Question Answer Date of Assessment Author Little interest or pleasure in doing things Not at all 10/22/2024 8:04 AM EDT Erin Sabillon Feeling down, depressed, or hopeless Not at all 10/22/2024 8:04 AM EDT Erin Sabillon Patient Health Questionnaire -2 Score 0 10/22/2024 8:04 AM EDErin Harp * Question Answer Date of Assessment Author Trouble falling or staying asleep, or sleeping too much Not at all 10/22/2024 8:04 AM Erin Upton Feeling tired or having elli le energy Not at all 10/22/2024 8:04 AM GWENT Erin Sabillon Poor appetite or overeating Not at all 10/22/2024 8: 04 AM GWENT Erin Sabillon Feeling bad about yourself - or that you are a failure or have let yourself or your family down Not at all 10/22/2024 8:04 AM GWENT Erin Sabillon Trouble concentrating on things, such as reading the newspaper or watching television Not at all 10/22/2024 8:04 AM Erin Upton Moving or speaking so slowly that other people could have noticed? Or the opposite - being so fidgety or restless that you have been moving around a lot more than usual. Not at all 10/22/2024 8:04 AM Erin Oden Thoughts that you would be better off or hurting yourself in some way Not at all 10/22/2024 8:04 AM Karen Upton Patient Health Questionnaire -9 Score 0 10/22/2024 8:04 AM Erin Upton * If you checked off any problems on this questionnaire so far, Question Answer Date of Assessment Author How difficult have these problems made it for you to do your work, take care of things at home, or get along with other people? Not difficult at all 10/22/2024 8:04 AM Karen Upton documented as of this encounter Miscellaneous Notes * Progress Notes - Sosa Pike, Harvey - 10/22/2024 8:00 AM EDT Pharmacist Inhaler Education 1. Morbid obesity (CMS/HCC) 2. Dyspnea on exertion (Primary) 3. Mild persistent asthma without complication Nahomy was seen in clinic today for inhaler/spacer teaching. Prescribed inhaler(s) include: Dulera 50 Nahomy has a spacer and given education regarding proper inhaler/spacer technique. I answered the patient's questions and encouraged them to contact the pulmonary clinic with any additional questions. Sosa Pike PharmD Clinical Pharmacist - Pulmonary Pulmonary, Critical Care, & Sleep Medicine * Progress Notes - Katie Katz PA - 10/22/2024 8:00 AM EDT Subjective Nahomy Kim is a 38 y.o. female who presents for initial consultation with [facility] for anemia, history of substance use disorder (on Suboxone, remission since 2013), anxiety, hepatitis C who presents as a new patient with a chief complaint of presurgical evaluation. Chief Complaint Patient presents with Consult [address] [facility] [address] Referring Provider: Rose Marie Becker PA Referral reason: Presurgical Evaluation Pcp, No HPI The patient was born full term and healthy. There is no prior history of lung disease. The patient had a healthy childhood and young adulthood. No prior history of asthma, frequent bronchitis or frequent pneumonias. She reports sometimes she gets of breath, doing things such as walking a far distances such as a mile, she states she does get short of breath walking up 10- 15 steps. No cough, sputum production, wheezing, chest tightness, fever/chills, chest tightness, hemoptysis, unintentional weight loss, night sweats. Not currently on any inhalers. No significant allergy symptoms. Denies history of LUDY, denies snoring, feels rested when she wakes in the mornings. No significant GERD symptoms. Social History: Smoked cigarettes a couple times as as a teen but never smoker. Lives in [facility] with her fiance, couple cats and a couples. Denies birds/chicken exposure, hot tub use, saunas, down products,denies mold or water damage. No occupational exposure or history. Mother: COPD, current smoker. Medical History[1] Surgical History[2] Family History[3] Social History Social History Narrative Not on file Tobacco Use History[4] Allergies[5] Current Medications[6] Tobacco Allergies Meds Problems Med Hx Surg Hx Fam Hx Review of Systems Constitutional: Negative for chills, fever and unexpected weight change. HENT: Negative for congestion, postnasal drip and rhinorrhea. Respiratory: Positive for shortness of breath (on exertion). Negative for cough and wheezing. Cardiovascular: Positive for leg swelling (L leg and ankle). Gastrointestinal: Negative for diarrhea, nausea and vomiting. Musculoskeletal: Positive for arthralgias (ankle). Skin: Negative for color change and rash. Neurological: Negative for dizziness, syncope and light-headedness. Objective Visit Vitals BP 110/74 (BP Location: Right arm, Patient Position: Sitting) Pulse 63 Temp 37.2 ??C (98.9 ??F) (Oral) Resp 14 Ht 1.651 m (5' 5 ) Wt 108 kg (238 lb 5.1 oz) SpO2 98% Comment: RA BMI 39.66 kg/m?? OB Status Having periods Smoking Status Never BSA 2.23 m?? Physical Exam Vitals and nursing note reviewed. Constitutional: Appearance: Normal appearance. She is well-developed. HENT: Head: Normocephalic and atraumatic. Mouth/Throat: Mouth: Mucous membranes are moist. Pharynx: No oropharyngeal exudate or posterior oropharyngeal erythema. Eyes: General: No scleral icterus. Conjunctiva/sclera: Conjunctivae normal. Pupils: Pupils are equal, round, and reactive to light. Cardiovascular: Rate and Rhythm: Normal rate and regular rhythm. Pulses: Normal pulses. Heart sounds: Normal heart sounds. Pulmonary: Effort: Pulmonary effort is normal. No respiratory distress. Breath sounds: Wheezing present. No rales. Musculoskeletal: General: Normal range of motion. Cervical back: No tenderness. Right lower leg: No edema. Left lower leg: No edema. Lymphadenopathy: Cervical: No cervical adenopathy. Skin: General: Skin is warm and dry. Neurological: Mental Status: She is alert and oriented to person, place, and time. Psychiatric: Thought Content: Thought content normal. Judgment: Judgment normal. Results: Eos: Imaging: CXR- 12/26/21 Lungs are clear. Heart and mediastinal contours are within normal limits. No pneumothorax. No pleural effusion. CT Chest- None PFT: I have personally interpreted the test results 10/22/24 FEV1: 2.42 (77%) --> post BD FVC: 3.86 (101%) --> post BD FEV1/FVC: 63 (76%) --< post BD Impression: Date FEV1 FVC FEV1/FVC TLC DLCO Assessment Scales: ACT: CAT: MMRC: Breathless Scale Grade 0: No breathlessness except with strenuous excercise.: 1 Grade 1: Shortness of breath when hurrying on the level or walking up a slight hill.: 1 Grade 2: Walk slower than people of the same age on the level because of breathlessness or has to stop for breath when walking at own pace on the level.: 0 Grade 3: Stops for breath after walking about 100 meters or after a few minutes on the level.: 0 (depends on distance) Grade 4: Too breathless to leave the house or breathless when dressing or undressing.: 1 (sometimes) Assessment/Plan Diagnosis Plan 1. Mild persistent asthma without complication XR Chest 2 Views Follow Up Pulm Pulmonary Function Test 2. Morbid obesity (CMS/HCC) Ambulatory referral to Pulmonology Follow Up Pulm Pulmonary Function Test 3. Dyspnea on exertion Pulmonary function testing XR Chest 2 Views Follow Up Pulm Pulmonary Function Test 4. Encounter for preoperative pulmonary examination Orders Placed This Encounter Procedures XR Chest 2 Views Standing Status: Future Number of Occurrences: 1 Expected Date: 10/22/2024 Expiration Date: 04/24/2026 Reason for exam:: dyspnea on exertion [facility] Im[facility] [1] Follow Up Pulm CXR today. Repeat Francesco with follow up Standing Status: Future Expected Date: 01/22/2025 Expiration Date: 11/22/2025 Referral Priority: Routine Referral Type: Consultation Number of Visits Requested: 1 Pulmonary function testing Standing Status: Future Number of Occurrences: 1 Expiration Date: 04/24/2026 Reason for Exam:: dyspnea Which PFTs would you like to perform?: Spirometry Type of spirometry:: Without Bronchodilator Where will this be performed?: PFT Lab Pulmonary Function Test Standing Status: Future Expiration Date: 04/24/2026 Reason for Exam:: asthma Which PFTs would you like to perform?: Spirometry Type of spirometry:: Pre and post bronchodilator Where will this be performed?: PFT Lab Discussion/Summary: 38 y.o. female with: #presurgical evaluation for weight loss surgery #obesity BMI: 39.66 #mild persistent asthma -Nahomy presents here for evaluation for presurgical evaluation prior to gastric sleeve surgery with [facility]. -no prior history of asthma, frequent bronchitis or frequent pneumonias -endorses dyspnea on exertion especially with walking a mile or more and/or going up a flight of steps. Otherwise denies wheezing, chest tightness, cough. -Spirometry today shows reversible obstruction with significant bronchodilator response. -given wheezing and Spirometry findings, will initiate her on low dose ICS/LABA (will send Dulera 50, 2 puffs BID) with spacer. Encouraged to rinse out mouth after use. -likely will obtain labs at next visit. -obtain CXR This patient is at low to moderate (based on time of surgery) risk for a post- operative pulmonary complication (PPC) based upon ARISCAT risk index score. Her PPC risk is not prohibitive, however, andthere is no additional optimization that can be implemented at this time to mitigate the patients pulmonary operative risk. Additionally, this evaluation does not obviate the inherent risks of operative intervention and anesthesia. Overall, to reduce the risk of post operative pulmonary complications I recommend: -Lung expansion maneuvers postoperatively - Defer elective surgery if pt is having acute exacerbation or has an active respiratory infection within 30 days of planned surgery date Follow up: 3 months to assess inhaler response + PFT. CXR today I spent 60 minutes performing all or some of the following: Reviewing the history , performing an examination and evaluation, entering clinical information into the EHR, interpreting the results, counseling family/patient/caregiver, reviewing x-rays and laboratories, ordering the medications, testsand procedures, referring and communicating with consulting health post acute care nurse and care coordination. DONNA Arriaga [facility] [address] [facility] [address] Dept: [phone] Dept Loc: [phone] Loc [1] History reviewed. No pertinent past medical history. [2] Past Surgical History: Procedure Laterality Date SECTION, LOW TRANSVERSE CHOLECYSTECTOMY [3] History reviewed. No pertinent family history. [4] Social History Tobacco Use Smoking Status Never Passive exposure: Never Smokeless Tobacco Never [5] No Known Allergies [6] Current Outpatient Medications: Buprenorphine HCl-Naloxone HCl (Suboxone) 12-3 MG film, Place 1 film every day by sublingual route., Disp: , Rfl: gabapentin (Neurontin) 100 MG capsule, TAKE 1 CAPSULE BY MOUTH 4 TIMES DAILY, Disp: , Rfl: cyanocobalamin (Vitamin B-12) 1000 MCG/ML injection, , Disp: , Rfl: Mometasone Furo-Formoterol Fum (Dulera) 50-5 MCG/ACT aerosol, Inhale 2 Inhalations 2 times a day. May use as a rescue inhaler for chest tightness, cough, wheezing or shortness of breath. Max 12 inhalations per day., Disp: 13 g, Rfl: 11 documented in this encounter Plan of Treatment Upcoming Encounters Date Type Department Care Team (Late st Contact Info) Description 01/27/2025 11:00 AM EDT Ancillary Procedure [facility] [address] [place] [address] 01/27/2025 12:30 PM EDT Office Visit [facility] [address] [place] [address] Katie Katz PA [address] [place] [address] Scheduled Orders Name Type Priority Associated Diagnoses Orde r Schedule Pulmonary Function Test PFT Routine Morbid obesity (CMS/HCC) Dyspnea on exertion Mild persistent asthma without complication 1 Occurrences starting 10/22/2024 until 04/24/2026 Scheduled Referrals Name Type Priority Associated Diagnoses Orde r Schedule Follow Up Pulm Outpatient Referral Routine Morbid obesity (CMS/HCC) Dyspnea on exertion Mild persistent asthma without complication Expected: 01/22/2025, Expires: 11/22/2025 documented as of this encounter Results * XR Chest 2 Views (10/22/2024 9:49 AM EDT) Anatomical Region Laterality Modality Chest Digital Radiogra phy Impressions 10/22/2024 10:14 AM EDT No acute findings. CRITICAL RESULT: No. COMMUNICATION: Per this written report. By electronically signing this report, I, the attending physician, attest that I have personally reviewed the images/data for the above examination(s) and agree with the final edited report. Drafted by Kiko Bowens MD on 10/22/2024 10:02 AM Final report signed by Maco Perez MD on 10/22/2024 10:14 AM Narrative 10/22/2024 10:14 AM EDT CLINICAL INDICATION: dyspnea on exertion TECHNIQUE: XR CHEST 2 VIEWS COMPARISON: December 26, 2021 FINDINGS: Cardiomediastinal silhouette is within normal limits. No consolidation. No pneumothorax or pleural effusion. No findings suggestive of interstitial lung disease. Procedure Note Maco Perez MD - 10/22/2024 CLINICAL INDICATION: dyspnea on exertion TECHNIQUE: XR CHEST 2 VIEWS COMPARISON: December 26, 2021 FINDINGS: Cardiomediastinal silhouette is within normal limits. No consolidation. Nopneumothorax or pleural effusion. No findings suggestive of interstitiallung disease. IMPRESSION: No acute findings. CRITICAL RESULT: No. COMMUNICATION: Per this written report. By electronically signing this report, I, the attending physician, attestthat I have personally reviewed the images/data for the aboveexamination(s) and agree with the final edited report. Drafted by Kiko Bowens MD on 10/22/2024 10:02 AM Final report signed by Maco Perez MD on 10/22/2024 10:14 AM Katie THOMPSON IMG XR PROCEDURES Final Resul t * (ABNORMAL) Pulmonary function testing (10/22/2024 8:58 AM EDT) [id number] 4.09 3.06 - 4.64 L VYAIRE PFT [id number] 3.86 3.06 - 4.64 L VYAIRE PFT [id number] 3.00 2.51 - 3.76 L VYAIRE PFT FEV1 PRE 2.42(A) 2.51 - 3.76 L VYAIRE PFT [id number] 73.29 71.42 - 91.53 % VYAIRE PFT FEV1/FVC PRE 62.63(A) 71.42 - 91.53 % VYAIRE PFT [id number]%_POST 2.35 2.02 - 4.84 L/s VYAIRE PFT [id number]% PRE 1.42(A) 2.02 - 4.84 L/s VYAIRE PFT [id number] 5.58 5.38 - 8.91 L/s VYAIRE PFT PEF PRE 4.60(A) 5.38 - 8.91 L/s VYAIRE PFT Anatomical Region Laterality Modality PFT 10/22/2024 8:25 AM EDT Narrative 10/22/2024 9:08 AM EDT Pulmonary Function Testing Report Nahomy Kim 38 y.o. underwent pulmonary function testing today at the [facility]. The patient underwent spirometry testing. All tests were appropriately administered via ATS/ERS criteria. Spirometry: Reduced FEV1 with a normal FVC and reduced ratio consistent with mild obstruction. There is a significant positive bronchodilator response. Trend: There are no prior studies for comparison. Katie THOMPSON PFT ORDERABLES Final Result documented in this encounter Visit Diagnoses Diagnosis Mild persistent asthma without complication- Primary Morbid obesity (CMS/HCC) Morbid obesity Dyspnea on exertion Other dyspnea and respiratory abnormality Encounter for preoperative pulmonary examination Dyspnea on exertion Other dyspnea and respiratory abnormality Dyspnea on exertion Other dyspnea and respiratory abnormality Mild persistent asthma without complication documented in this encounter Additional Health Concerns Assessment Noted Time PHQ-9 Depression Total Score: 0 10/23/19 8:04 AM EDT A fall risk assessment has been complete d for the patient 10/22/2024 8:04 AM EDT A Body Mass Index follow-up plan has been documented for the patient 10/22/2024 9:21 AM EDT documented as of this encounter Care Teams Outpatient Case Manager Relationship Specialty Start Date End Date Pcp, [place] [address] PCP - General Family Medicine 10/21/21 documented as of this encounter
--- OUTSIDE RECORDS SUMMARY | 2024-10-22 08:30 | XMS_ITS | Encounter Summary ---
Author Organization Healthcare Address [address] [place] [address] Care Team Providers Care Ammonia Solution Preparer Name Role Phone Pcp, No Primary Care Provider Unavailabl e Encounter Details Date Type Department Care Team (Latest Contact Info) Description 10/22/2024 8:30 AM EDT [facility]illary [facility] [address] [place] [id number] Dyspnea on exertion Social History Tobacco Use Types Packs/Day Years Used Date Smoking Tobacco: Never Passive Smoke Exposure: Never Smokeless Tobacco: Never Alcohol Use Standard Drinks/Week Comments Not Currently [...] on file documented as of this encounter Functional Status * Over the [...] Questionnaire -2 Score 0 10/22/2024 8:04 AM EDT Erin Sabillon * Question Answer Date of Assessment Author Trouble falling or staying asleep, or sleeping too much Not at all 10/22/2024 8:04 AM EDT Erin Sabillon Feeling tired or having elli le energy Not at all 10/22/2024 8:04 AM EDT Erin Sabillon Poor appetite or overeating Not at all 10/22/2024 8: 04 AM EDT Erin Sabillon Feeling bad about yourself - or that you are a failure or have let yourself or your family down Not at all 10/22/2024 8:04 AM EDT Erin Sabillon Trouble concentrating on things, such as reading the newspaper or watching television Not at all 10/22/2024 8:04 AM GWENT Erin Sabillon Moving or speaking so slowly that other people could have noticed? Or the opposite - being so fidgety or restless that you have been moving around a lot more than usual. Not at all 10/22/2024 8:04 AM EDT Erin Solano Thoughts that you would be better off or hurting yourself in some way Not at all 10/22/2024 8:04 AM EDT Karen Sabillon Patient Health Questionnaire -9 Score 0 10/22/2024 8:04 AM EDT Erin Sabillon * If you checked off any problems on this questionnaire so far, Question Answer Date of Assessment Author How difficult have these problems made it for you to do your work, take care of things at home, or get along with other people? Not difficult at all 10/22/2024 8:04 AM EDT Karen Sabillon documented as of this encounter Plan of Treatment Upcoming Encounters Date Type Department Care Team (Late st Contact Info) Description 01/27/2025 11:00 AM EDT Ancillary Procedure [facility] Medicine Specialties [address] [place] [address] 01/27/2025 12:30 PM EDT Office Visit [facility] [address] [place] [address] Katie Katz, PA [address] [place] [phone] documented as of this encounter Procedures Procedure Name Priority Date/Time Associated Diagnosis Comments HC EVAL OF BRONCHOSPASM Routine 10/22/2024 8:58 AM EDT Dyspnea on exertion documented in this encounter Results * (ABNORMAL) Pulmonary function testing (10/22/2024 8:58 AM EDT) [id number] 4.09 3.06 - 4.64 L VYAIRE PFT [id number] 3.86 3.06 - 4.64 L VYAIRE PFT [id number] 3.00 2.51 - 3.76 L VYAIRE PFT FEV1 PRE 2.42(A) 2.51 - 3.76 L VYAIRE PFT [id number] 73.29 71.42 - 91.53 % VYAIRE PFT FEV1/FVC PRE 62.63(A) 71.42 - 91.53 % VYAIRE PFT [id number]%_POST 2.35 2.02 - 4.84 L/s VYAIRE PFT VCN29-63% PRE 1.42(A) 2.02 - 4.84 L/s VYAIRE PFT [id number] 5.58 5.38 - 8.91 L/s VYAIRE PFT PEF PRE 4.60(A) 5.38 - 8.91 L/s VYAIRE PFT Anatomical Region Laterality Modality PFT 10/22/2024 8:25 AM EDT Narrative 10/22/2024 9:08 AM EDT Pulmonary Function Testing Report Nahomy Kim 38 y.o. underwent pulmonary function testing today at the [facility]. The patient underwent spirometry testing. All tests were appropriately administered via ATS/ERS criteria. Spirometry: Reduced FEV1 with a normal FVC and reduced ratio consistent with mild obstruction. There is a significant positive bronchodilator response. Trend: There are no prior studies for comparison. Katie THOMPSON PFT ORDERABLES Final Result documented in this encounter Visit Diagnoses Diagnosis Dyspnea on exertion Other dyspnea and respiratory abnormality documented in this encounter Additional Health Concerns Assessment Noted Time PHQ-9 Depression Total Score: 0 10/23/19 25 8:04 AM EDT A fall risk assessment has been complete d for the patient 10/22/2024 8:04 AM EDT A Body Mass Index follow-up plan has been documented for the patient 10/22/2024 9:21 AM EDT documented as of this encounter Care Teams Ammonia Solution Preparer Relationship Specialty Start Date End Date Pcp, [place] [address] PCP - General Family Medicine 10/21/21 documented as of this encounter
--- OUTSIDE RECORDS SUMMARY | 2024-10-22 09:29 | XMS_ITS | Encounter Summary ---
Author Organization Healthcare Address [address] [place] [address] Care Team Providers Care Sql Server Architect Name Role Phone Pcp, No Primary Care Provider Unavailabl e Encounter Details Date Type Department Care Team (Latest Contact Info) Description 10/22/2024 9:29 AM EDT - 10/22/2024 11:59 PM EDT [facility] [address], [address] [place] [id number] Dyspnea on exertion; Mild persistent asthma without complication Discharge Disposition: Home or Self Care Social History Tobacco Use Types Packs/Day Years [...] much Not at all 10/22/2024 8:04 AM GWNET Erin Sabillon Feeling tired or having elli [...] usual. Not at all 10/22/2024 8:04 AM GWENT Erin Solano Thoughts that you would be [...] Karen Upton documented as of this encounter Medications at Time of Discharge Buprenorphine HCl-Naloxone HCl (Suboxone) 12-[address] 1 film every day by sublingual route. cyanocobalamin (Vitamin B-12) 1000 MCG/ML injection 10/21/2024 gabapentin (Neurontin) 100 MG capsule TAKE 1 CAPSULE BY MOUTH 4 TIMES DAILY Mometasone Furo-Formoterol Fum (Dulera) 50-5 MCG/ACT aerosol Inhale 2 Inhalations 2 times a day. May use as a rescue inhaler for chest tightness, cough, wheezing or shortness of breath. Max 12 inhalations per day. 13 g 11 10/22/2024 documented as of this encounter Plan of Treatment Upcoming Encounters Date Type Department Care Team (Late st Contact Info) Description 01/27/2025 11:00 AM EDT Ancillary Procedure [facility] Medicine Specialties [address] [place] [address] 01/27/2025 12:30 PM EDT Office Visit [facility] [address] [place] [address] Katie Katz PA [address] [place] [address] documented as of this encounter Procedures Procedure Name Priority Date/Time Associated Diagnosis Comments XR CHEST 2 VIEWS Routine 10/22/2024 9:49 AM EDT Dyspnea on exertion Mild persistent asthma without complication documented in this encounter Results * XR Chest 2 [...] signing this report, I, the attending physician, [place] I have personally reviewed the images/data for the aboveexamination(s) and agree with the final edited report. Drafted by Kiko Bowens MD on 10/22/2024 10:02 AM Final report signed by Maco Perez MD on 10/22/2024 10:14 AM Katie THOMPSON IMG XR PROCEDURES Final Resul t documented in this encounter Visit Diagnoses Diagnosis [...] documented as of this encounter Care Teams Sql Server Architect Relationship Specialty Start Date End Date Pcp, [place] [address] PCP - General Family Medicine 10/21/21 documented as of this encounter
--- OUTSIDE RECORDS SUMMARY | 2024-11-01 17:30 | XMS_ITS ---
Author Organization [facility] Address [address] [place] [address] Care Team Providers Care Morning Nanny Name Role Phone Vanessa Del Toro Primary Care Provider [phone] Migration, Provider Unavailable Unavailable REASON FOR [...] Active Encounters Encounter Location Date Provider Diagnosis [facility] [address] [place] [address] 11/01/2024 Provider Migration Major depressive disorder, recurrent, [...] Notes * Nahomy CALERODOB:1985 (39 yo F)Acc No.[id number]:11/01/2024 Patient: Nahomy Zelaya Provider: :1985 A ge:38 Y S ex:Female Date:11/01/2024 Address[address] [id number] Pcp:Vanessa Del Toro Subjective: * Chief Complaints: [...] Electronic signature of Vi blanchard Migration on 2024 at 09:04 AM EDT Sign off status: Pending * Provider: Date: 11/01/2024 Generated for Randolph pineda/Yennifer/Bree on: 2024 09:04 AM EDT
--- OUTSIDE RECORDS SUMMARY | 2024-12-04 09:04 | XMS_ITS | Encounter Summary ---
Author Organization Healthcare Address [address] [place] [address] Care Team Providers Care Oil Processing Technician Name Role Phone Pcp, No Primary Care Provider Megan Lockhart Unavailable Unavailable Aaliyah Corral LCSW Unavailable Unavailable Encounter Details Date Type Department Care Team (Late st Contact Info) Description 12/02/2021 Orders Only [facility] [address] [place] [id number] Aleyda De Souza Social History Tobacco Use Types Packs/Day Years Used Date Smoking Tobacco: Never Smokeless Tobacco: Never Alcohol Use Standard Drinks/Week Comments Not Currently 0 (1 standard drink = 0.6 oz pur e alcohol) PHQ-2 Answer Date Recorded Patient Health Questionnaire-2 Score 0 12/02/2021 Comments No Sex and Gender Information Value Date Recorded Sex Assigned at Not on file Legal Sex Female 8:21 PM EDT Gender Identity Not on file Sexual Orientation Not on file COVID-19 Exposure Response Date Recorded In the last 10 days, have yo u been in contact with someone who was confirmed or suspected to have Coronavirus/COVID-19? Unable to assess 12/02/2021 8:53 AM EDT documented as of this encounter Functional Status * Over the past 2 weeks, how often have you been bothered by any of the following problems? Question Answer Date of Assessment Author Little interest or pleasure in doing things Not at all 12/02/2021 9:04 AM EDT Gladys Gonzalez RN Feeling down, depressed, or hopeless Not at all 12/02/2021 9:04 AM EDT Carlos, Gladys L, RN Patient Health Questionnaire -2 Score 0 12/02/2021 9:04 AM EDT Gladys Gonzalez RN documented as of this encounter Plan of Treatment Upcoming Encounters Date Type Department Care Team (Late st Contact Info) Description 01/27/2025 11:00 AM EDT Ancillary Procedure [facility] Medicine Specialties [address] [place] [address] 01/27/2025 12:30 PM EDT Office Visit [facility] Medicine [facility]ties [address] [place] [address] Katie Katz PA [address] [place] [address] documented as of this encounter Visit Diagnoses Not on filedocumented in this encounter Additional Health Concerns Infection Onset Date Last Indicated Resolved Time COVID-19 Rule-Out 12/26/2021 12/26/2021 12/26/2021 5:22 PM EDT Assessment Noted Time A fall risk assessment has been complete d for the patient 12/02/2021 9:04 AM EDT documented as of this encounter Care Teams Oil Processing Technician Relationship Specialty Start Date End Date Pcp, Naomie [address] [place] [address] PCP - General Family Medicine 10/21/21 Megan Finn Breakdown Person Meat Packager 02/17/22 06/05/23 Aaliyah Corral, [place] [address] Breakdown Person Meat Packager 11/04/21 04/02/24 documented as of this encounter
--- OUTSIDE RECORDS SUMMARY | 2024-12-04 09:04 | XMS_ITS | Data Portability ---
Author Organization [place] - [facility] & DENISE Rincon ADMIN Address [address] [place] [id number] Care Team Providers Care Section Gang Name Role Phone RICK VINNY Primary Care Provider [phone] Assessment Encounter Date Assessment Date Assessment LastModified by Organization Details LastModified Time 10/07/2024 10/07/2024 Weigh- Ins needed: 1 weigh in each month until surgery Weigh-in completion: To be done with PCP in [place] PES: Obesity/morbid obesity r/t food and nutrition knowledge related deficit AEB BMI of 40.1 Calories: 1635 kcal (15 kcal/kg due to obesity/morbid obesity) Protein: 70 Fluids: 64+ fluid oz. RD Recommendations: 1. Follow 2-4 hr rule for meal timing. Do not skip meals. 2. 64 oz noncarbonated, noncaffeinated, sugar-free fluids/day 3. Increase physical activity to 30+ minutes 3-4x/week 4. Begin using tracking emily to assess avg diet intake, track daily intake 4+ times/week 5. Try different protein shakes to find ones that you like for post surgery. A total of 15 minutes was spent with the pt today. [email or web address] Not available 10/07/2024 14:18:02 11/12/2024 11/12/2024 Robotic sleeve gastrectomy All Risks, Complications and Alternatives were explained to the patient. They understand that there are many possible complications that may occur with bariatric surgery including but not limited to; bleeding, infection, staple line leak, injury to solid organ, injury to bowel, injury to bladder, injury to blood vessel, pneumonia, DVT, PE, , cardiac event, stricture, ulcer, non-healing of the staple line. They also understand that detention they may develop some of these problems as well as the risk of vitamin deficiencies, malnutrition and this may require further surgery or interventional procedures such as feeding tubes or re-operation for their healing. They have also been given an extensive surgical consent that explains these risks and complications and have acknowledged and signed that they understand these. They understand Weight loss surgery is a tool and that compliance is mandatory to not only be successful but to give them the best chance to avoid complications. They understand they must keep all recommended office follow up appointments and laboratory checks Patient will return to clinic for postoperative follow-up 1 week after surgery. [email or web address] Not available 11/12/2024 09:25:07 12/02/2024 12/02/2024 The patient is doing well. The patient is instructed to continue their vitamins as directed. They are to continue advancing their diet as directed. They may start exercising but keep lifting less than 25 pounds for 2 more weeks. I will see them back in 3 weeks or one month from surgery. We will order their first set of labs at that time. I summarized the expectations for the upcoming year. We will check labs at their one month visit from surgery, 3 months from surgery as well as at 6, 9, and 12 months from surgery. These labs will be ordered on the day of their appointment. They have the option to come to the appointment fasting and labs can be drawn that day at the hospital. If not, I expect these labs to be drawn within the week of ordering them. If they choose to have them drawn at another institution they are to make sure that the labs are sent to my office. These labs will be reviewed once received and the patient will be called with any significant abnormalities and how they should be addressed. If they would like a copy of their labs they are welcome to request these and we will send a copy to them. If they're labs and vitamin levels are adequate at 12 months then they will need lab checks every 6mth-12mth. They consent to understand this plan and agree to comply. [email or web address] Not available 12/02/2024 09:36:14 Plan of Treatment Reminders Order Date Submit Date Provider Last Modified By Organization Details Last Modified Time Details Appointments OV EST 20 2024 11:40A Lorena MESSINA NP Not available Not available Not available Lab CBC w/ auto diff 2024 025 [facility], [address], [address], [place], [address], 11/13/2024 10:37:02 CMP, serum or plasma 2024 025 [facility], [address], [address], [place], [address], 11/13/2024 10:37:03 HbA1c (hemoglob in A1c), blood 2024 025 ZOIE [facility], [address], [address], [place], [address], 11/13/2024 10:37:04 vitamin A (retinol) , serum 2024 025 ZOIE [facility], [address], [address], [place], [address], 10/13/2024 18:36:45 vitamin E, serum 2024 025 ZOIE [facility], [address], [address], [place], [address], 10/13/2024 18:36:43 PTH (parathyr oid hormone), intact, serum or plasma 2024 025 ZOIE [facility], [address], [address], [place], [address], 10/13/2024 18:36:48 CBC w/ auto diff 2024 025 ZOIE [facility], [address], [address], [place], [address], 10/13/2024 18:36:41 CMP, serum or plasma 2024 025 ZOIE [facility], [address], [address], [place], [address], 10/13/2024 18:36:42 HbA1c (hemoglob in A1c), blood 2024 025 ZOIE [facility], [address], [address], [place], [address], 10/13/2024 18:36:44 lipid panel, serum 2024 025 ZOIE [facility], [address], [address], [place], [address], 10/13/2024 18:36:43 TSH + free T4, serum 2024 025 ZO[facility], [address], [address], [place], [address], 10/13/2024 18:36:41 folate, serum 2024 025 ZOIE [facility], [address], [address], [place], [address], 10/13/2024 18:36:45 methylmal demetria, QN, serum or plasma 2024 025 [facility]IE [facility], [address], [address], [place], [address], 10/13/2024 18:36:47 thiamine, QN, blood 2024 025 ZOIE [facility], [address], [address], [place], [address], 10/13/2024 18:36:47 vitamin D, 25-hydrox y, total, serum 2024 025 [facility], [address], [address], [place], [address], 10/13/2024 18:36:46 iron + TIBC + ferritin, serum 2024 025 ZOIE [facility], [address], [address], [place], [address], 10/13/2024 18:36:40 Referral None recorded. Procedures None recorded. Surgeries esophagog astroduod enoscopy (SURG) 2024 025 [email or web address] Mirna Dodson MD, [address], [address], [place], [address], 11/21/2024 13:37:56 Imaging electroca rdiogram 2024 025 [facility], [address], [place], [address], 10/15/2024 14:33:07 XR, chest, 2 view 2024 025 [facility] ([facility] Sched[facility]), [address], [place], [address], 10/07/2024 15:39:19 electroca rdiogram, routine ECG, 12 leads min 2024 025 [email or web address] Not available 10/14/2024 04:22:01 Medication Orders omeprazol e 20 mg capsule,d elayed release 2024 025 [facility] [place], [address], 12/02/2024 09:36:45 Diflucan 150 mg tablet 2024 025 [facility], [address] [place], [address], 12/02/2024 09:56:07 Celebrex 100 mg capsule 2024 025 [facility], [address] [place], [address], 11/12/2024 09:26:36 omeprazol e 20 mg capsule,d elayed release 2024 025 [email or web address] 17 [facility], [address], [address], 12/02/2024 09:32:44 Patient TargetsNo targets recorded. Patient InstructionsNo instructions recorded. Reason for Referral None Reported. Results Created Date Observation Date Name Description Value Unit Range Abnormal Flag Note LastModifiedBy Organization Detail LastModifiedTime 10/08/1910/08/2024 FE+TI BC+FE R iron bind.cap.(TI BC) 323 ug/dL 250-45 0 normal Not Available [facility] ([facility]) [address] [place], [address], 10/13/2024 18:36:40 10/08/19 25 10/08/2024 FE+TI BC+FE R UIBC 256 ug/dL 131-42 5 normal Not Available [facility] ([facility]) [address] [place], [address], 10/13/2024 18:36:40 10/08/19 25 10/08/2024 FE+TI BC+FE R iron 67 ug/dL 27-159 normal Not Available [facility] ([facility]) [address] [place], [address], 10/13/2024 18:36:40 10/08/1910/08/2024 FE+TI BC+FE R iron saturation 21 % 15-55 normal Not Available [facility] ([facility]) [address] [place], [address], 10/13/2024 18:36:40 10/08/19 25 10/08/2024 FE+TI BC+FE R ferritin 27 NG/mL 15-150 normal Not Available [facility] ([facility]) [address] [place], [address], 10/13/2024 18:36:40 10/08/19 25 10/08/2024 TSH+F REE T4 TSH 4.030 uIU/m L 0.450- 4.500 normal Not Available [facility] ([facility]) [address] [place], [address], 10/13/2024 18:36:41 10/08/19 25 10/08/2024 TSH+F REE T4 T4,free(dire ct) 1.08 NG/dL 0.82-1 .77 normal Not Available [facility] ([facility]) [address] [place], [address], 10/13/2024 18:36:41 10/08/1910/08/2024 CBC WITH DIFFE RENTI AL/PL ATELE T WBC 5.5 x10e3 /uL 3.4-10 .8 normal Not Available [facility] ([facility]) [address] [place], [address], 10/13/2024 18:36:41 10/08/1910/08/2024 CBC WITH DIFFE RENTI AL/PL ATELE T RBC 4.58 x10e6 /uL 3.77-5 .28 normal Not Available [facility] ([facility]) [address] [place], [address], 10/13/2024 18:36:41 10/08/19 25 10/08/2024 CBC WITH DIFFE RENTI AL/PL ATELE T hemoglobin 13.4 g/dL 11.1-1 5.9 normal Not Available [facility] ([facility]) [address] [place], [address], 10/13/2024 18:36:41 10/08/1910/08/2024 CBC WITH DIFFE RENTI AL/PL ATELE T hematocrit 41.8 % 34.0-4 6.6 normal Not Available [facility] ([facility]) [address] [place], [address], 10/13/2024 18:36:41 10/08/19 25 10/08/2024 CBC WITH DIFFE RENTI AL/PL ATELE T MCV 91 fL 79-97 normal Not Available [facility] ([facility]) [address] [place], [address], 10/13/2024 18:36:41 10/08/19 25 10/08/2024 CBC WITH DIFFE RENTI AL/PL ATELE T MCH 29.3 pg 26.6-3 3.0 normal Not Available [facility] ([facility]) [address] [place], [address], 10/13/2024 18:36:41 10/08/19 25 10/08/2024 CBC WITH DIFFE RENTI AL/PL ATELE T MCHC 32.1 g/dL 31.5-3 5.7 normal Not Available [facility] ([facility]) [address] [place], [address], 10/13/2024 18:36:41 10/08/19 25 10/08/2024 CBC WITH DIFFE RENTI AL/PL ATELE T RDW 12.2 % 11.7-1 5.4 Not Available [facility] ([facility]) [address] [place], [address], 10/13/2024 18:36:41 10/08/19 25 10/08/2024 CBC WITH DIFFE RENTI AL/PL ATELE T platelets 261 x10e3 /uL 150-45 0 normal Not Available [facility] ([facility]) [address] [place], [address], 10/13/2024 18:36:41 10/08/19 25 10/08/2024 CBC WITH DIFFE RENTI AL/PL ATELE T neutrophils 45 % not estab. normal Not Available [facility] ([facility]) [address] [place], [address], 10/13/2024 18:36:41 10/08/19 25 10/08/2024 CBC WITH DIFFE RENTI AL/PL ATELE T lymphs 46 % not estab. normal Not Available [facility] ([facility]) [address] [place], [address], 10/13/2024 18:36:41 10/08/19 25 10/08/2024 CBC WITH DIFFE RENTI AL/PL ATELE T monocytes 6 % not estab. normal Not Available [facility] ([facility]) [address] [place], [address], 10/13/2024 18:36:41 10/08/19 25 10/08/2024 CBC WITH DIFFE RENTI AL/PL ATELE T eos 2 % not estab. normal Not Available [facility] ([facility]) [address] [facility], [place], [address], 10/13/2024 18:36:41 10/08/19 25 10/08/2024 CBC WITH DIFFE RENTI AL/PL ATELE T basos 1 % not estab. normal Not Available [facility] ([facility]) [address] [place], [address], 10/13/2024 18:36:41 10/08/19 25 10/08/2024 CBC WITH DIFFE RENTI AL/PL ATELE T immature cells [employer] Not Available [facility] ([facility]) [address] [place], [address], 10/13/2024 18:36:41 10/08/19 25 10/08/2024 CBC WITH DIFFE RENTI AL/PL ATELE T neutrophils (absolute) 2.5 x10e3 /uL 1.4-7. 0 normal Not Available [facility] ([facility]) [address] [place], [address], 10/13/2024 18:36:41 10/08/19 25 10/08/2024 CBC WITH DIFFE RENTI AL/PL ATELE T lymphs (absolute) 2.5 x10e3 /uL 0.7-3. 1 normal Not Available [facility] ([facility]) [address] [facility], [place], [address], 10/13/2024 18:36:41 10/08/19 25 10/08/2024 CBC WITH DIFFE RENTI AL/PL ATELE T monocytes(ab solute) 0.3 x10e3 /uL 0.1-0. 9 normal Not Available [facility] ([facility]) [address] [facility], [place], [address], 10/13/2024 18:36:41 10/08/19 25 10/08/2024 CBC WITH DIFFE RENTI AL/PL ATELE T eos (absolute) 0.1 x10e3 /uL 0.0-0. 4 normal Not Available [facility] ([facility]) [address] [facility], [place], [address], 10/13/2024 18:36:41 10/08/19 25 10/08/2024 CBC WITH DIFFE RENTI AL/PL ATELE T baso (absolute) 0.0 x10e3 /uL 0.0-0. 2 normal Not Available [facility] ([facility]) [address] [facility], [place], [address], 10/13/2024 18:36:41 10/08/19 25 10/08/2024 CBC WITH DIFFE RENTI AL/PL ATELE T immature granulocytes 0 % not estab. Not Available [facility] ([facility]) [address] [place], [address], 10/13/2024 18:36:41 10/08/19 25 10/08/2024 CBC WITH DIFFE RENTI AL/PL ATELE T immature grans (abs) 0.0 x10e3 /uL 0.0-0. 1 Not Available [facility] ([facility]) [address] [facility], [place], [address], 10/13/2024 18:36:41 10/08/19 25 10/08/2024 CBC WITH DIFFE RENTI AL/PL ATELE T NRBC [employer] Not Available [facility] ([facility]) [address] [facility], [place], [address], 10/13/2024 18:36:41 10/08/19 25 10/08/2024 CBC WITH DIFFE RENTI AL/PL ATELE T hematology comments: [employer] Not Available [facility] ([facility]) [address] [facility], [place], [address], 10/13/2024 18:36:41 10/08/19 25 10/08/2024 COMP. METAB OLIC PANEL (14) glucose 73 mg/dL 70-99 normal Not Available [facility] ([facility]) [address] [facility], [place], [address], 10/13/2024 18:36:42 10/08/19 25 10/08/2024 COMP. METAB OLIC PANEL (14) BUN 8 mg/dL 6-20 normal Not Available [facility] ([facility]) [address] [facility], [place], [address], 10/13/2024 18:36:42 10/08/19 25 10/08/2024 COMP. METAB OLIC PANEL (14) creatinine 0.85 mg/dL 0.57-1 .00 normal Not Available [facility] ([facility]) [address] [facility], [place], [address], 10/13/2024 18:36:42 10/08/19 25 10/08/2024 COMP. METAB OLIC PANEL (14) eGFR 90 mL/mi n/1.7 3 >59 normal Not Available [facility] ([facility]) [address] [place], [address], 10/13/2024 18:36:42 10/08/19 25 10/08/2024 COMP. METAB OLIC PANEL (14) BUN/creatini ne ratio 9 9-23 normal Not Available [facility] ([facility]) [address] [facility] [place], [address], 10/13/2024 18:36:42 10/08/19 25 10/08/2024 COMP. METAB OLIC PANEL (14) sodium 140 mmol/ L 134-14 4 normal Not Available [facility] ([facility]) [address] [facility] [place], [address], 10/13/2024 18:36:42 10/08/19 25 10/08/2024 COMP. METAB OLIC PANEL (14) potassium 4.1 mmol/ L 3.5-5. 2 normal Not Available [facility] ([facility]) [address] [facility] [place], [address], 10/13/2024 18:36:42 10/08/19 25 10/08/2024 COMP. METAB OLIC PANEL (14) chloride 101 mmol/ L 96-106 normal Not Available [facility] ([facility]) [address] [place], [address], 10/13/2024 18:36:42 10/08/19 25 10/08/2024 COMP. METAB OLIC PANEL (14) carbon dioxide, total 26 mmol/ L 20-29 normal Not Available [facility] ([facility]) [address] [place], [address], 10/13/2024 18:36:42 10/08/19 25 10/08/2024 COMP. METAB OLIC PANEL (14) calcium 9.2 mg/dL 8.7-10 .2 normal Not Available [facility] ([facility]) [address] [place], [address], 10/13/2024 18:36:42 10/08/19 25 10/08/2024 COMP. METAB OLIC PANEL (14) protein, total 6.9 g/dL 6.0-8. 5 normal Not Available [facility] ([facility]) [address] [place], [address], 10/13/2024 18:36:42 10/08/19 25 10/08/2024 COMP. METAB OLIC PANEL (14) albumin 4.2 g/dL 3.9-4. 9 normal Not Available [facility] ([facility]) [address] [place], [address], 10/13/2024 18:36:42 10/08/19 25 10/08/2024 COMP. METAB OLIC PANEL (14) globulin, total 2.7 g/dL 1.5-4. 5 Not Available [facility] ([facility]) [address] [place], [address], 10/13/2024 18:36:42 10/08/19 25 10/08/2024 COMP. METAB OLIC PANEL (14) bilirubin, total 0.3 mg/dL 0.0-1. 2 normal Not Available [facility] ([facility]) [address] [place], [address], 10/13/2024 18:36:42 10/08/19 25 10/08/2024 COMP. METAB OLIC PANEL (14) alkaline phosphatase 73 IU/L 44-121 normal Not Available [facility] ([facility]) [address] [place], [address], 10/13/2024 18:36:42 10/08/19 25 10/08/2024 COMP. METAB OLIC PANEL (14) AST (SGOT) 14 IU/L 0-40 normal Not Available [facility] ([facility] [address] [facility] [place], [address], 10/13/2024 18:36:42 10/08/19 25 10/08/2024 COMP. METAB OLIC PANEL (14) ALT (SGPT) 8 IU/L 0-32 normal Not Available [facility] ([facility]) [address] [facility] [place], [address], 10/13/2024 18:36:42 10/08/19 25 10/08/2024 LIPID PANEL cholesterol, total 159 mg/dL 100-19 9 normal Not Available [facility] ([facility]) [address] [place], [address], 10/13/2024 18:36:43 10/08/19 25 10/08/2024 LIPID PANEL triglyceride s 94 mg/dL 0-149 normal Not Available [facility] ([facility]) [address] [place], [address], 10/13/2024 18:36:43 10/08/19 25 10/08/2024 LIPID PANEL HDL cholesterol 48 mg/dL >39 normal Not Available [facility] ([facility]) [address] [facility], [place], [address], 10/13/2024 18:36:43 10/08/19 25 10/08/2024 LIPID PANEL VLDL cholesterol lupillo 17 mg/dL 5-40 Not Available [facility] ([facility]) [address] [place], [address], 10/13/2024 18:36:43 10/08/19 25 10/08/2024 LIPID PANEL LDL chol calc ([facility]) 94 mg/dL 0-99 Not Available [facility] ([facility]) [address] [place], [address], 10/13/2024 18:36:43 10/08/19 25 10/08/2024 LIPID PANEL LDL calc comment: [employer] Not Available [facility] ([facility]) [address] [place], [address], 10/13/2024 18:36:43 10/08/19 25 10/13/2024 VITAM IN E vitamin E(alpha tocopherol) 8.8 mg/L 5.9-19 .4 Not Available [facility] ([facility]) [address] [place], [address], 10/13/2024 18:36:43 10/08/1910/13/2024 VITAM IN E vitamin E(gamma tocopherol) 1.7 mg/L 0.7-4. 9 Refer ence inter vals for alpha and gamma -toco phero l deter mined from [facility] Nut[facility] tion Exami natio n Surve y, 2004- 2005. Indiv idual s with alpha -toco phero l level s less than 5.0 mg/L are consi dered vitam in E defic ient. Not Available [facility] ([facility]) [address] [facility], [place], [address], 10/13/2024 18:36:43 10/08/1910/08/2024 HEMOG LOBIN A1C hemoglobin A1C 4.7 % 4.8-5. 6 below low normal Predi abete s: 5.7 - 6.4 Diabe melba: >6.4 Glyce ana contr ol for adult s with diabe melba: <7.0 Not Available [facility] ([facility]) [address] [facility], [place], [address], 10/13/2024 18:36:44 10/08/1910/08/2024 FOLAT E (FOLI C ACID) , SERUM folate (folic acid), serum 6.9 NG/mL >3.0 normal A serum folat e lavinia ntrat ion of less than 3.1 ng/mL is consi dered to repre sent clini lupillo defic iency . Not Available [facility] ([facility]) [address] [facility], [place], [address], 10/13/2024 18:36:45 10/08/1910/13/2024 VITAM IN A, SERUM vitamin A 30.0 ug/dL 18.9-5 7.3 Refer ence inter vals for vitam in A deter mined from [facility] inter nal studi es. Indiv idual s with vitam in A less than 20 ug/dL are consi dered vitam in A defic ient and those with serum lavinia ntrat ions less than 10 ug/dL are consi dered sever maddi defic ient. This test was roma russo and its perfo rustam e yi landrum stics deter mined by [facility]. It has not been clear ed or appro josh by the Food and Drug Admin istra tion. Not Available [facility] ([facility]) [address] [facility], [place], [address], 10/13/2024 18:36:45 10/08/19 25 10/08/2024 VITAM IN D, 25-HY DROXY vitamin D, 25-hydroxy 32.6 NG/mL 30.0-1 00.0 Vitam in D defic iency has been defin ed by the Insti tute of Medic ine and an Endoc rine Socie ty pract ice guide line as a level of serum 25-OH vitam in D less than 20 ng/mL (1,2) . The Endoc rine Socie ty went on to furth er defin e vitam in D insuf ficie ncy as a level betwe en 21 and 29 ng/mL (2). 1. IOM (Inst itute of Medic ine). 2010. Dieta ry refer ence samra es for calci um and D. Genesis shaikh [place]: The [facility] Press . 2. Joseluis lee MF, Narendra ey [place], Mike off-F errar i LOUIE, et al. Evalu ation , treat ment, and preve ntion of vitam in D defic iency : an Endoc rine Socie ty clini lupillo pract ice guide line. JCEM. 2010; 96(7) :1911 -30. Not Available [facility] ([facility]) [address] [facility], [place], [address], 10/13/2024 18:36:46 10/08/19 25 10/10/2024 VITAM IN B1 (THIA MINE) , BLOOD vit. B1, whole blood 112.0 nmol/ L 66.5-2 00.0 Not Available [facility] ([facility]) [address] [facility], [place], [address], 10/13/2024 18:36:47 10/08/1910/13/2024 METHY LMALO KOURTNEY ACID, SERUM methylmaloni c acid, serum 481 nmol/ L 0-378 above high normal Not Available [facility] ([facility]) [address] [facility], [place], [address], 10/13/2024 18:36:47 10/08/19 25 10/08/2024 PTH, INTAC T PTH, intact 25 pg/mL 15-65 normal Not Available [facility] ([facility]) [address] [facility], [place], [address], 10/13/2024 18:36:48 10/17/19 25 10/18/[address] (H PYLOR I AB QUAL) bobby test 20 min NEGATI VE negati ve Not Available [facility] ([facility]) [address] [place], [address], 10/18/2024 07:47:44 10/17/19 25 10/18/[address] (H PYLOR I AB QUAL) bobby test 1HR NEGATI VE negati ve Not Available [facility] ([facility]) [address] [facility], [place], [address], 10/18/2024 07:47:44 10/17/19 25 10/18/[address] (H PYLOR I AB QUAL) bobby test 3 HR NEGATI VE negati ve Not Available [facility] ([facility]) [address] [place], [address], 10/18/2024 07:47:44 10/17/19 25 10/18/[address] (H PYLOR I AB QUAL) bobby test 24 HR POSITI VE negati ve delta Not Available [facility] ([facility]) [address] [place], [address], 10/18/2024 07:47:44 10/17/19 25 10/18/[address] (H PYLOR I AB QUAL) bobby test kit lot# [id number] Not Available [facility] ([facility]) [address] , [place], [address], 10/18/2024 07:47:44 10/17/19 25 10/18/[address] (H PYLOR I AB QUAL) bobby test kit exp date 2024-05 Not Available [facility] ([facility]) [address] , [place], [address], 10/18/2024 07:47:44 11/13/1911/13/2024 CBC WITH DIFFE RENTI AL/PL ATELE T WBC 6.1 x10e3 /uL 3.4-10 .8 normal Not Available [facility] ([facility]) [address] [place], [address], 11/13/2024 10:37:02 11/13/19 25 11/13/2024 CBC WITH DIFFE RENTI AL/PL ATELE T RBC 5.03 x10e6 /uL 3.77-5 .28 normal Not Available [facility] ([facility]) [address] [place], [address], 11/13/2024 10:37:02 11/13/19 25 11/13/2024 CBC WITH DIFFE RENTI AL/PL ATELE T hemoglobin 14.7 g/dL 11.1-1 5.9 normal Not Available [facility] ([facility]) [address] [place], [address], 11/13/2024 10:37:02 11/13/19 25 11/13/2024 CBC WITH DIFFE RENTI AL/PL ATELE T hematocrit 46.6 % 34.0-4 6.6 normal Not Available [facility] ([facility]) [address] [place], [address], 11/13/2024 10:37:02 11/13/19 25 11/13/2024 CBC WITH DIFFE RENTI AL/PL ATELE T MCV 93 fL 79-97 normal Not Available [facility] ([facility]) [address] [place], [address], 11/13/2024 10:37:02 11/13/19 25 11/13/2024 CBC WITH DIFFE RENTI AL/PL ATELE T MCH 29.2 pg 26.6-3 3.0 normal Not Available [facility] ([facility]) [address] [facility], [place], [address], 11/13/2024 10:37:02 11/13/19 25 11/13/2024 CBC WITH DIFFE RENTI AL/PL ATELE T MCHC 31.5 g/dL 31.5-3 5.7 normal Not Available [facility] ([facility]) [address] [place], [address], 11/13/2024 10:37:02 11/13/19 25 11/13/2024 CBC WITH DIFFE RENTI AL/PL ATELE T RDW 12.1 % 11.7-1 5.4 Not Available [facility] ([facility]) [address] [place], [address], 11/13/2024 10:37:02 11/13/19 25 11/13/2024 CBC WITH DIFFE RENTI AL/PL ATELE T platelets 206 x10e3 /uL 150-45 0 normal Not Available [facility] ([facility]) [address] [place], [address], 11/13/2024 10:37:02 11/13/19 25 11/13/2024 CBC WITH DIFFE RENTI AL/PL ATELE T neutrophils 45 % not estab. normal Not Available [facility] ([facility]) [address] [place], [address], 11/13/2024 10:37:02 11/13/19 25 11/13/2024 CBC WITH DIFFE RENTI AL/PL ATELE T lymphs 45 % not estab. normal Not Available [facility] ([facility]) [address] [place], [address], 11/13/2024 10:37:02 11/13/19 25 11/13/2024 CBC WITH DIFFE RENTI AL/PL ATELE T monocytes 6 % not estab. normal Not Available [facility] ([facility]) [address] [place], [address], 11/13/2024 10:37:02 11/13/19 25 11/13/2024 CBC WITH DIFFE RENTI AL/PL ATELE T eos 3 % not estab. normal Not Available [facility] ([facility]) [address] [facility], [place], [address], 11/13/2024 10:37:02 11/13/19 25 11/13/2024 CBC WITH DIFFE RENTI AL/PL ATELE T basos 1 % not estab. normal Not Available [facility] ([facility]) [address] [place], [address], 11/13/2024 10:37:02 11/13/19 25 11/13/2024 CBC WITH DIFFE RENTI AL/PL ATELE T immature cells [employer] Not Available [facility] ([facility]) [address] [place], [address], 11/13/2024 10:37:02 11/13/19 25 11/13/2024 CBC WITH DIFFE RENTI AL/PL ATELE T neutrophils (absolute) 2.8 x10e3 /uL 1.4-7. 0 normal Not Available [facility] ([facility]) [address] [place], [address], 11/13/2024 10:37:02 11/13/19 25 11/13/2024 CBC WITH DIFFE RENTI AL/PL ATELE T lymphs (absolute) 2.7 x10e3 /uL 0.7-3. 1 normal Not Available [facility] ([facility]) [address] [facility], [place], [address], 11/13/2024 10:37:02 11/13/19 25 11/13/2024 CBC WITH DIFFE RENTI AL/PL ATELE T monocytes(ab solute) 0.4 x10e3 /uL 0.1-0. 9 normal Not Available [facility] ([facility]) [address] [facility], [place], [address], 11/13/2024 10:37:02 11/13/19 25 11/13/2024 CBC WITH DIFFE RENTI AL/PL ATELE T eos (absolute) 0.2 x10e3 /uL 0.0-0. 4 normal Not Available [facility] ([facility]) [address] [facility], [place], [address], 11/13/2024 10:37:02 11/13/19 25 11/13/2024 CBC WITH DIFFE RENTI AL/PL ATELE T baso (absolute) 0.0 x10e3 /uL 0.0-0. 2 normal Not Available [facility] ([facility]) [address] [facility], [place], [address], 11/13/2024 10:37:02 11/13/19 25 11/13/2024 CBC WITH DIFFE RENTI AL/PL ATELE T immature granulocytes 0 % not estab. Not Available [facility] ([facility]) [address] [place], [address], 11/13/2024 10:37:02 11/13/19 25 11/13/2024 CBC WITH DIFFE RENTI AL/PL ATELE T immature grans (abs) 0.0 x10e3 /uL 0.0-0. 1 Not Available [facility] ([facility]) [address] [facility], [place], [address], 11/13/2024 10:37:02 11/13/19 25 11/13/2024 CBC WITH DIFFE RENTI AL/PL ATELE T NRBC [employer] Not Available [facility] ([facility]) [address] [facility], [place], [address], 11/13/2024 10:37:02 11/13/19 25 11/13/2024 CBC WITH DIFFE RENTI AL/PL ATELE T hematology comments: [employer] Not Available [facility] ([facility]) [address] [facility], [place], [address], 11/13/2024 10:37:02 11/13/19 25 11/13/2024 COMP. METAB OLIC PANEL (14) glucose 74 mg/dL 70-99 normal Not Available [facility] ([facility]) [address] [facility], [place], [address], 11/13/2024 10:37:03 11/13/19 25 11/13/2024 COMP. METAB OLIC PANEL (14) BUN 8 mg/dL 6-20 normal Not Available [facility] ([facility]) [address] [place], [address], 11/13/2024 10:37:03 11/13/19 25 11/13/2024 COMP. METAB OLIC PANEL (14) creatinine 0.75 mg/dL 0.57-1 .00 normal Not Available [facility] ([facility]) [address] [facility], [place], [address], 11/13/2024 10:37:03 11/13/19 25 11/13/2024 COMP. METAB OLIC PANEL (14) eGFR 104 mL/mi n/1.7 3 >59 normal Not Available [facility] ([facility]) [address] [place], [address], 11/13/2024 10:37:03 11/13/19 25 11/13/2024 COMP. METAB OLIC PANEL (14) BUN/creatini ne ratio 11 9-23 normal Not Available [facility] ([facility]) [address] [place], [address], 11/13/2024 10:37:03 11/13/19 25 11/13/2024 COMP. METAB OLIC PANEL (14) sodium 140 mmol/ L 134-14 4 normal Not Available [facility] ([facility]) [address] [place], [address], 11/13/2024 10:37:03 11/13/19 25 11/13/2024 COMP. METAB OLIC PANEL (14) potassium 4.4 mmol/ L 3.5-5. 2 normal Not Available [facility] ([facility]) [address] [place], [address], 11/13/2024 10:37:03 11/13/19 25 11/13/2024 COMP. METAB OLIC PANEL (14) chloride 101 mmol/ L 96-106 normal Not Available [facility] ([facility]) [address] [place], [address], 11/13/2024 10:37:03 11/13/19 25 11/13/2024 COMP. METAB OLIC PANEL (14) carbon dioxide, total 22 mmol/ L 20-29 normal Not Available [facility] ([facility]) [address] [place], [address], 11/13/2024 10:37:03 11/13/19 25 11/13/2024 COMP. METAB OLIC PANEL (14) calcium 9.4 mg/dL 8.7-10 .2 normal Not Available [facility] ([facility]) [address] [place], [address], 11/13/2024 10:37:03 11/13/19 25 11/13/2024 COMP. METAB OLIC PANEL (14) protein, total 7.2 g/dL 6.0-8. 5 normal Not Available [facility] ([facility]) [address] [place], [address], 11/13/2024 10:37:03 11/13/19 25 11/13/2024 COMP. METAB OLIC PANEL (14) albumin 4.3 g/dL 3.9-4. 9 normal Not Available [facility] ([facility]) [address], [place], [address], 11/13/2024 10:37:03 11/13/19 25 11/13/2024 COMP. METAB OLIC PANEL (14) globulin, total 2.9 g/dL 1.5-4. 5 Not Available [facility] ([facility]) [address] [place], [address], 11/13/2024 10:37:03 11/13/19 25 11/13/2024 COMP. METAB OLIC PANEL (14) bilirubin, total 0.5 mg/dL 0.0-1. 2 normal Not Available [facility] ([facility]) [address] [facility], [place], [address], 11/13/2024 10:37:03 11/13/19 25 11/13/2024 COMP. METAB OLIC PANEL (14) alkaline phosphatase 77 IU/L 44-121 normal Not Available [facility] ([facility]) [address] [facility], [place], [address], 11/13/2024 10:37:03 11/13/19 25 11/13/2024 COMP. METAB OLIC PANEL (14) AST (SGOT) 21 IU/L 0-40 normal Not Available [facility] ([facility]) [address] [facility] [place], [address], 11/13/2024 10:37:03 11/13/19 25 11/13/2024 COMP. METAB OLIC PANEL (14) ALT (SGPT) 13 IU/L 0-32 normal Not Available [facility] ([facility]) [address] [facility], [place], [address], 11/13/2024 10:37:03 11/13/19 25 11/13/2024 HEMOG LOBIN A1C hemoglobin A1C 4.7 % 4.8-5. 6 below low normal Predi abete s: 5.7 - 6.4 Diabe melba: >6.4 Glyce ana contr ol for adult s with diabe melba: <7.0 Not Available [facility] ([facility]) [address], [place], [address], 11/13/2024 10:37:04 10/08/19 25 10/07/2024 XR, chest , 2 view [facility] [address] [place] [address] Phone: Fax: Name: SALENA CALERO Exam Date: : 986 Age 38 years Gender : F Access ion: [id number] Physic jessica: MARS GAN Facili ty: [facility] Facili ty HSV: Outpat ient Exam: CHEST 2 VIEWS PROCED URE DESCRI PTION: XR CHEST 2 VIEWS CLINIC AL INDICA TION: Pre op, encoun ter for other prepro cedura l examin ation. TECHNI QUE: 2 views / 2 images submit apolinar. COMPAR MG: No prior studie s were compar ed. FINDIN GS: The medias tinum and cardia c silhou ette are not enlarg ed. There is no pneumo thorax or pleura l effusi on. There is no pulmon arianna infilt rate or atelec tasis. IMPRES SEBASTIAN: No infilt rate. Electr onical ly signed by: Avinash jorge MD 2024 03:34 PM EDT RP Workst ation: [id number] Dictat ed By: AVINASH MCBRIDE Transc ribed By: Transc ribed On: 025 3:09 PM Electr onical ly signed by: AVINASH MCBRIDE Thank you for referr SALENA Dubon to [facility]. Legall y authen ticate d by JOSE Garcia 10-07 15:09: 58 CC'ed Logic: Orderi ng Provid er: PILE HEATHE R Attend ing Provid er: PILE HEATHE R Referr ing Provid er: PILE HEATHE R Admitt ing Provid er: PILE HEATHE R hpile [facility] - [facility] [address], [place], [address], 10/08/2024 14:35:07 10/16/19 25 10/15/2024 elect rocar diogr am No observ ation record ed. [facility] [address], [place], [address], 10/15/2024 14:33:16 10/16/19 25 10/15/2024 elect rocar diogr am No observ ation record ed. [facility] [address], [place], [address], 10/15/2024 14:33:07 Result Notes Documentation Provider Name and Address Organization Details Recorded Time Xr, Chest, 2 View : [facility] [address] [place] [address] Name: SALENA CALERO Exam Date: 10/07/2024 : 1985 Age 38 years Gender: F Physician: GABRIELLA GAN Facility: [facility] Facility HSV: Outpatient Exam: CHEST 2 VIEWS PROCEDURE DESCRIPTION: XR CHEST 2 VIEWS CLINICAL INDICATION: Pre op, encounter for other preprocedural examination. TECHNIQUE: 2 views / 2 images submitted. COMPARISON: No prior studies were compared. FINDINGS: The mediastinum and cardiac silhouette are not enlarged. There is no pneumothorax or pleural effusion. There is no pulmonary infiltrate or atelectasis. IMPRESSION: No infiltrate. Electronically signed by: Avinash Cuellar MD 10/07/2024 03:34 PM EDT Dictated By: AVINASH CUELLAR Transcribed By: Transcribed On: 10/07/2024 3:09 PM Electronically signed by: AVINASH CUELLAR 10/07/2024 Thank you for referring ABDIASSALENA to [facility]. Legally authenticated by THIERRY Garcia 2024-10-07 15:09:58 CC'ed Logic: Ordering Provider: ELVIA QUIROZ Attending Provider: ELVIA QUIROZ Referring Provider: ELVIA QUIROZ Admitting Provider: DONNA Andrews [address], [place], [address], [place] - [facility] [place] 10/08/2024 14:35:07 Problems Name Problem SNOMED Code Status Onset Date Resolution Date Notes Provider Name and Address Organization Details Recorded Time Severe obesity 6220247681614 4 Active 2024 DONNA Garcia [address], [place], [address] , [place] [facility] [place] 12:27:12 Iron deficiency anemia 36725518 Active 2024 DONNA Garcia [address], [place], [address] , [facility] - [facility] [place] 13:35:31 Vitamin D deficiency 66034680 Active 2024 DONNA Garcia [address], [place], [address] , [facility] [place] 13:35:49 Problem Notes Documentation Provider Name and Address Organization Details Recorded Time Dietitian Note : Nutrition Consult/Follow-up Progress Note [facility] Name Salena Calero Date of Service 0925 [id number] (F) Attending JALEN BYRD Admitted [id number] Discharged Primary JER CHAVEZ - Nutritional Comments: RDN rounded on pt this AM s/p sleeve. Pt reports doing well. Tolerating PO liquids. Ambulating often. Provided patient with stage 1 clear liquid diet and vitamins to start taking or purchase including: MVI, Fe and Ca. Pt was reminded via handout to attend post-op class and f/u on Sunday12/02/2024. Pt was informed that class is 1 hour followed by visit with provider. Advised pt to continue clear liquids through POD#7 then begin full liquids on POD#8 continuing through POD#14. . Encouraged to start tracking calories and protein with an emily or pen/paper. Advised to get 70g protein/day and 64 oz. caffeine-free, un-carbonated beverages. RDN addressed pt questions. Verbally agreeable to recommendations. RDN available PRN for assistance Electronically signed by IZABEL Burgess RD on 0925 1 of 1 CC'ed Logic: Ordering Provider: IZABEL CORREIA Attending Provider: JALEN ZAYAS Referring Provider: JALEN ZAYAS Admitting Provider: JALEN MESSINA NP [address], [place], [address], [facility] - [facility] [place] 12/02/2024 08:24:59 Procedures Surgical History Date Name Laterality Status Provider Name and Address Organization Details Recorded Time 11/25 laparoscopic sleeve gastrectomy completed GIBRAN MESSINA NP [address] , [place], [address] , [facility] - [facility] [place] 5 08:26:07 cholecystectomy completed DONNA Garcia [address], [place], [address] , [place] - [facility] [place] 5 13:32:51 section completed Megan Camp [place] - [facility] [place] 5 16:40:36 extraction of wisdom tooth completed Megan Conrado [place] - [facility] [place] 5 16:40:48 Tubal Ligation completed Megan Conrado [facility] [place] 5 16:40:59 esophagogastroduodenoscopy completed Megan Camp [place] - [facility] [place] 5 11:47:12 Imaging Results None recorded. Procedure Notes None recorded. Medical Equipment None Reported. Allergies No known drug allergies Medications Name Sig Start Date Stop Date Status Note LastModified by Organization Details LastModified Time amoxicillin 500 mg capsule TAKE 2 CAPSULES BY MOUTH TWICE DAILY FOR 14 DAYS 11/12 completed Not Available Not Available Not Available fluconazole 150 mg tablet TAKE 1 TABLET BY MOUTH NOW THEN REPEAT IN 3 DAYS 12/02 completed Not Available Not Available Not Available clarithromy joey 500 mg tablet TAKE 1 TABLET BY MOUTH EVERY 12 HOURS FOR 14 DAYS 11/12 completed Not Available Not Available Not Available amoxicillin 500 mg tablet Take 2 tablets twice a day by oral route for 14 days. 11/12 completed Not Available Not Available Not Available amitriptyli ne 10 mg tablet TAKE 1 TABLET BY MOUTH ONE HOUR BEFORE BEDTIME FOR 1 WEEK MAY INCREASE TO 2 TABS NIGHTLY IF PERSISTEN T PAIN 10/07 completed Not Available Not Available Not Available nortriptyli ne 10 mg capsule TAKE 1 CAPSULE BY MOUTH AT BEDTIME NIGHTLY 10/07 completed Not Available Not Available Not Available cyanocobala min (vit B-12) 1,000 mcg/mL injection solution INJECT 1 ML SUBCUTANE OUSLY ONCE A WEEK FOR 6 WEEKS active Not Available Not Available No t Available docusate sodium 100 mg capsule TAKE 1 CAPSULE BY MOUTH ONCE DAILY FOR 14 DAYS active Not Available Not Available No t Available omeprazole 20 mg capsule,del ayed release Take 1 capsule every day by oral route for 30 days. 2024 active Not Available Not Available Not Avai lable gabapentin 100 mg capsule TAKE 1 CAPSULE BY MOUTH 4 TIMES DAILY active Not Available Not Available No t Available celecoxib 100 mg capsule TAKE 1 CAPSULE BY MOUTH TWICE DAILY FOR 7 DAYS active Not Available Not Available No t Available cyclobenzap rine 5 mg tablet TAKE 1 TABLET BY MOUTH THREE TIMES DAILY NEEDED FOR MUSCLE SPASM 10/07 completed Not Available Not Available Not Available multivitami n active Not Available Not Available Not Available Suboxone 12 mg-[address] 1 film every day by sublingua l route. active Not Available Not Available No t Available sofosbuvir 400 mg-velpatas vir 100 mg tablet TAKE ONE TABLET BY MOUTH EVERY DAY 10/07 completed Not Available Not Available Not Available Dulera 50 mcg-5 mcg/actuati on HFA aerosol inhaler INHALE 2 PUFFS BY MOUTH TWICE DAILY MAY USE A RESCUE INHALER FOR CHEST TIGHTNESS , COUGH, WHEEZING OR SHORTNESS OF BREATH. MAX 12 INHALATIO NS PER DAY active Not Available Not Available No t Available Vitals Date Recorded Body height Body mass index (BMI) Body weight Body temperature Heart rate Systolic And Diastolic Provider Name and Address Organization Details Last Updated DateTime 5 165.1 cm 40.1 kg/m2 235873. 76 g 97.3 [degF] 63 /min 132/60 mm[Hg] Megan Camp [facility] [place] 5 11:35:51 Date Recorded Body height Body mass index (BMI) Body weight Oxygen saturation Oxygen saturation in Arterial blood by Pulse oximetry Heart rate Systolic And Diastolic Provider Name and Address Organization Details Last Updated DateTime 5 165.1 cm 39.4 kg/m2 147407. 39 g 98 % 98 % 65 /min 135/62 mm[Hg] Shania Braydon [facility] [place] 5 10:18:51 Date Recorded Body height Body temperature Heart rate Body mass index (BMI) Body weight Systolic And Diastolic Provider Name and Address Organization Details Last Updated DateTime 5 165.1 cm 98.7 [degF] 56 /min 40.3 kg/m2 418147. 71 g 135/75 mm[Hg] Shasta Ambrosio [facility] [place] 5 11:58:17 Date Recorded Body height Body mass index (BMI) Body weight Body temperature Heart rate Systolic And Diastolic Provider Name and Address Organization Details Last Updated DateTime 5 165.1 cm 37.2 kg/m2 481534. 89 g 97.8 [degF] 62 /min 131/81 mm[Hg] Megan Camp [facility] [place] 5 09:31:33 Social History Question Answer Notes LastModified by Organizat ion Details LastModified Time Tobacco Smoking Status Never [facility]oker [facility] [place] 10/07/2024 11:34:20 What Is Your Level Of Caffeine Consumption? Occasional [email or web address] Information not available 11/12/2024 Sex: Unknown Functional Status Question Answer Note LastModified by Organizat ion Details LastModified Time Do you use any illicit or recreational drugs? 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 on suboxone [email or web address] Information not available 10/07/2024 What is your level of alcohol consumption? None [email or web address] Information not available 10/07/2024 Mental Status None recorded. Family History Nothing Reported. Medical History Condition Response Diabetes N Anxiety Disorder Y Bleeding Disorder N Anemia Y Reflux/GERD N Sleep Apnea N High Cholesterol N Hepatitis Y Liver Disease N Heart Disease N Pulmonary Embolism N Deep Vein Thrombosis N Hypertension N Kidney Disease N Gynecological HistoryNo gynecological history recorded. Obstetrics History GPAL:G 0 P 0 0 0 0 Past Encounters Encounter ID Performer Location Encounter Start Date Encounter Closed Date Diagnosis/Indication Diagnosis SNOMED-CT Code Diagnosis ICD10 Code Diagnosis Note [id number] [facility] [address] [facility] [address] [place] [address] 10/07/2024 11:10:01 10/07/2024 14:34:05 Disorder of function of stomach 901542381 K31.89 Pre-surger y evaluation 485848304 Z01.818 Obesity screening 865150 005 Z13.89 Severe obesity 510010734 1 9104 E66.813 Z68.41 The patient will be scheduled for the following. Initial intake lab work, cardiac clearance, and EGD. All risks complicati ons and alternativ es of the upper endoscopy were discussed with the patient and agreed upon. These include but are not limited to, over sedation, bleeding, perforatio n.Patient will be educated by the surgical weight loss team regarding if any medical managed weight loss will be required and they will follow this according to their recommenda tions.jesse ent will follow-up in office after all testing has been completed Iron defic iency anemia 59241583 D50.9 Vitamin D deficiency 347 [id number] [facility] n [facility] [address] [facility] [address] [place] [address] 10/07/2024 13:52:23 10/07/2024 14:19:01 Diet education 55809249 Z71.3 Completed nutrition evaluation and education with patient. Education provided:- Importance of not skipping meals and eating every 2-4 hours.- Meeting protein goals based on recommende d surgery.-B egin reducing the amount of carbonated , caffeinate d, and sugary beverages consumed.- Encouraged getting in 64 oz. of fluids daily-Impo rtance of physical activity to help maintain muscle mass and to have successful weight loss-Impor tance of tracking calories and protein with a smartphone emily-Encour aged trying different protein shakes. Handouts provided: Surgical weight loss manual with nutrition education regarding protein, fruits, vegetables , grains, dairy, fats/oil, cooking methods, sample meal plan, and sample mix and match pairings, and exercise. Specific surgical manual provided to patient based on recommende d surgery. [id number] Marianela Preston MD [facility] [address] [place] [address] 10/15/2024 10:04:09 10/15/2024 10:28:50 Preoperative procedure 631957167 Z01.810 38-year-ol d female with no risk factors for coronary artery disease. EKG sinus rhythm. For preoperati ve evaluation for weight loss surgery. Patient can do more than 6 METs with no limitation . She is asymptomat ic. Can proceed with the surgery as low risk patient for moderate risk procedure from the cardiovasc ular standpoint . No indication for further cardiac workup at this time. Obesity ca used by energy imbalance 289275631 E66.812 E66.09 Z68.39 Body mass index 39.4. Recommend sleep apnea evaluation . [id number] MIRNA DODSON MD [facility] [address] [facility] [address] [place] [address] 11/12/2024 08:01:41 11/12/2024 14:36:21 Vitamin D deficiency 47711634 E55.9 Iron defic iency anemia 66947774 D50.9 Morbid obesity 800380975 E66.01 Pre-surger y evaluation 979522834 Z01.818 Postoperative pain 75671 9007 G89.18 patient to continue current gabapentin prescripti on postoperat ively. Candidiasis of vagina 72 511560 B37.31 [id number] GIBRAN MESSINA, [facility] [address] [place] [address] 12/02/2024 08:20:39 12/02/2024 14:14:27 History of gastrectomy 326587523 Z90.3 Heartburn 86847095 R12 Patient to continue on omeprazole daily. Health Concerns Section Related Observation LastModified by Organization Detai ls LastModified Time None Recorded Concern Status LastModified by Organization Details LastModified Time None Recorded Advance Directives Directive None Recorded Payers Insurance Date Sequence Insurance Name Policy Number Policy Hidalgo Covered Member ID Hidalgo Member ID Guarantor Name 12/01/[address] [facility] (MEDICAID HMO) [id number] Salena Abdias [id number] Salena Calero Notes Date Note Type Note Provider Name and Address Organization Details Recorded Time 5 text/html Patient presents today for the initial evaluation with an interest in bariatric surgery. Patients first choice for bariatric surgery is sleeve gastrectomy. Current BMI is 40.1Patient does not have frequent issue with heartburn symptoms.Pt has been overweight most of their life. Has been 100lbs or more over weight for __ years. Pt reports dyspnea joint pain and mobility issues related to excess weight.The pt is pursuing weight loss surgery because excess weight directly contributes to comorbidities including ADAMES. Patient does have a history of narcotic abuse. She is currently on Suboxone. She is previous history of hepatitis C and has been treated and labs show resolution. Patient has history of iron and vitamin-D deficiencyDiets include calorie counting high protein/low carb diet. Pt site physical hunger and boredom as prompts to eat. Struggles with portion size. DIET HX:The patient states that they have been overweight since childhoodThe patient states that they have been 100 lbs or more overweight many years.The patient started dieting at the age of 19Dieting methods that have been most successful in losing weight are cut calories, gymThe most weight ever lost on a single dieting attempt was _20lbs and this was maintained until less than a yearThe patient has attempted the following unsupervised diet attempts calorie counting, high proteinThe Patient has followed the following supervised diet attempts noneThe following OTC or prescribed medications have been utilized for weight loss laxativesBehavior treatments for weight loss that have been attempted in the past were noneThe patient has utilized the following modes of exercise to help with weight loss noneThe patient has not use self induced behaviors to help them lose weight in the past.Currently the patient admits to an eating history of skipping meals, snacking in the day and evening.The patient feels that the majority of their meals are prepared at home.Common triggers for causing the patient to overeat are boredom. DONNA Garcia [address], [place], [address], [facility] [place] 10/07/2024 14:30:01 5 text/html RDN met w/ pt to complete initial nutritional assessment for intake of bariatric surgery. Pt is interested in sleeve.Pt is a candidate for weight loss surgery.Reservations include: none Height = 65 Weight =241#BMI =40.1 Past weight loss attempts: calorie counting/restriction, high pro/low carb, low fat, meal replacements, exercise Hx of eating disorder: denies PMHX and meds list reviewed. 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 Have you tried protein shakes/supplements before: yes slim fast History tracking meals with an emily or journal: denies an emily but used to use a journal Social Hx reviewed.Tobacco use/smoking: deniesAlcohol use: deniesRecreational drug use: h/o drug use but sober 12 years Current physical activity: door dasher, house cleaning, yard work Recent changes: slowed down on junk food Motivation for surgery: due to health reasons Support after surgery: family, friends, coworkers Goals for surgery: 170# Additional notes/comments: BREN PAIZ RD [address], [place], [address], [facility] [place] 10/07/2024 14:18:49 5 text/html 38 year old female with No significant past medical history. Was sent for preoperative cardiovascular evaluation for weight loss surgery. Patient has been doing well physically active denied any chest pain or shortness of breath. No palpitation dizziness falling down or passing out no orthopnea PND or leg swelling. No cough wheeze sputum or hemoptysis no fever no chills no bleeding anywhere. No family history of heart disease at early age or early in the family.EKG done today results were discussed with the patient.Patient can do more than 6 METs with no limitation. Can proceed with the surgery as low risk patient for moderate risk procedure from the cardiovascular standpoint. I reviewed and discussed with the patient the results of blood work that was done 10/07/24 including A1c, CMP, CBC, Lipid panel, and TSH. EK10/15/24 Normal sinus rhythm, right axis deviation. Marianela Preston MD [address], [place], [address], [facility] & [place] 10/15/2024 10:35:07 5 text/html The patient is here today to schedule bariatric surgery which is Robotic Sleeve gastrectomy. They have undergone all required pre-operative work up and screening and have been approved to proceed with surgery. They deny any recent changes in their medical history since originally seen for their intake history and physical exam. They have undergone a 1 hour education class by myself reviewing the entire surgical process what to expect pre-operatively, during their hospital stay and when they are discharged home. They have had the opportunity to ask questions and all questions have been addressed. They have also undergone a class with the entry clerk and have received clear instructions on what is required regarding fluid intake, protein intake and vitamin consumption postoperatively. The patient is being managed by their PCP for their anxiety and is currently stable. MIRNA DODSON MD [address], [place], [address], [facility] [place] 11/12/2024 13:14:39 5 text/html Patient presents for 1wk Post-Op Check s/p robotic sleeve gastrectomy on 11/25/[address] Puckett. Patient is doing well. Tolerating PO intake w/out issue. Getting 20g/dy protein. Pt reports 40oz PO fluid daily. Taking recommended vitamins and PPI. Patient has been struggling with PO water based protein shakes. She has tried a couple of milk based premade shakes, which she has tolerated better (fairlife). Patient is not taking vitamins and she is currently out of PPI.Pt Denies : abdominal pain, prandial issues Nausea, Vomiting, bowel or bladder issuesPath benignPt is happy with their quality of life after Weight loss Surgery. EUNICE MESSINA, AMADO [address], [place], [address], [facility] - [place] & [place] 12/02/2024 14:08:31 OBGyn Episode No OBEpisode recorded.
--- OUTSIDE RECORDS SUMMARY | 2024-12-04 09:04 | XMS_ITS | Continuity of Care Document ---
Author Organization [facility] Address [address] [place] [address] Care Team Providers Care Fisheries Biologist Name Role Phone CABRERAVINNY Primary Care Provider Assessment No assessment recorded. Plan of Treatment Reminders Order Date Submit Date Provider Last Modified By Organization Details Last Modified Time Details Appointments OV EST 20 2024 11:40A M LUISA MESSINA NP Not available Not available Not available Lab None recorded. Referral None recorded. Procedures None recorded. Surgeries None recorded. Imaging electroca rdiogram 2024 025 [facility], [address], [place], [address], 10/15/2024 14:33:07 Medication Orders None recorded. Patient TargetsNo targets recorded. Patient InstructionsNo instructions recorded. Reason for Referral None Reported. Results Created Date Observation Date Name Description Value Unit Range Abnormal Flag Note LastModifiedBy Organization Detail LastModifiedTime 10/08/19 25 10/07/2024 XR, chest , 2 view [facility] [address] [place] [address] Phone: Fax: Name: SALENA CALERO Exam Date: 025 : 986 Age 38 years Gender : F Access ion: [id number] Physic jessica: MARS GAN Facili ty: [facility] Facili ty HSV: Outpat ient Exam: [...] Electr onical ly signed by: AVINASH MCBRIDE 025 Thank you for referr SALENA Dubon to [facility]. Legall y authen ticate d by JOSE ARELLANO W 10-07 15:09: 58 CC'ed Logic: Orderi ng Provid er: PILE HEATHE R Attend ing Provid er: PILE HEATHE R Referr ing Provid er: PILE HEATHE R Admitt ing Provid er: PILE HEATHE R [facility] [address], [place], [address], 10/08/2024 14:35:07 10/16/19 25 10/15/2024 elect rocar diogr am No observ ation record ed. [facility] [address], [place], [address], 10/15/2024 14:33:16 10/16/19 25 10/15/2024 elect rocar diogr am No observ ation record ed. [facility] [address], [place], [address], 10/15/2024 14:33:07 Result Notes None recorded. Problems Name Problem SNOMED Code Status Onset Date Resolution Date Notes Provider Name and Address Organization Details Recorded Time Severe obesity 9977209026066 4 Active 2024 DONNA Garcia [address], [place], [address] , [place] - [facility] - [place] & [place] 5 12:27:12 Iron deficiency anemia 28558158 Active 2024 DONNA Garcia [address], [place], [address] , [place] [facility] - [place] [facility] [place] 5 13:35:31 Vitamin D deficiency 70470918 Active 2024 DONNA Garcia [address], [place], [address] , [place] [facility] [place] [facility] [place] 5 13:35:49 Problem Notes None recorded. Procedures Surgical History Date Name Laterality Status Provider Name and Address Organization Details Recorded Time 11/25 laparoscopic sleeve gastrectomy completed GIBRAN MESSINA, AMADO [address], [place], [address] , [place] [facility] & [place] 5 08:26:07 cholecystectomy completed DONNA Garcia [address], [place], [address] , [place] - [facility] - [place] [facility] [place] 5 13:32:51 section completed Meganadrienne Camp [place] [facility] & [place] 5 16:40:36 extraction of wisdom tooth completed Megan Conrado [place] [facility] - [place] & [place] 5 16:40:48 Tubal Ligation completed Megan Conrado [place] [facility] & [place] 5 16:40:59 esophagogastroduodenoscopy completed Megan Conrado [place] [facility] & [place] 5 11:47:12 Imaging Results None recorded. Procedure [...] Updated DateTime 5 165.1 cm 39.4 kg/m2 340068. 39 g 98 % 98 % 65 /min 135/62 mm[Hg] Shania Bryson [facility] & [place] 5 10:18:51 Social History Question Answer Notes LastModified by Amadix Details LastModified Time Tobacco Smoking Status Never Smoker Megan Camp [facility] & [place] 10/07/2024 11:34:20 What Is Your Level Of Caffeine Consumption? Occasional [email or web address] Information not available 11/12/2024 Sex: Unknown Functional Status Question Answer Note LastModified by Amadix Details LastModified Time Do you use any illicit or recreational drugs? 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 None [email or web address] Information not available 10/07/2024 Mental Status None recorded. Family History Nothing Reported. Medical History Condition Response Anxiety Disorder Y Diabetes N Bleeding Disorder N Anemia Y Reflux/GERD N [...] SNOMED-CT Code Diagnosis ICD10 Code Diagnosis Note [id number] DONNA Garcia [facility] [address] [place] [address] 10/07/2024 11:10:01 10/07/2024 14:34:05 Disorder of function of stomach 243125906 K31.89 Pre-surger y evaluation 601126352 Z01.818 Obesity screening 206599 005 Z13.89 Severe obesity 788476775 1 9104 E66.813 Z68.41 The patient will [...] has been completed Iron defic iency anemia 12344966 D50.9 Vitamin D deficiency [id number] [facility] [address] [facility] [facility] [place] [address] 10/07/2024 13:52:23 10/07/2024 14:19:01 Diet education 93757786 Z71.3 Completed nutrition evaluation and education with [...] to patient based on recommende d surgery. [id number] Marianela Preston MD [facility] [address] [place] [address] 10/15/2024 10:04:09 10/15/2024 10:28:50 Preoperative procedure 874097009 Z01.810 38-year-ol d female with no risk [...] time. Obesity ca used by energy imbalance 333591989 E66.812 E66.09 Z68.39 Body mass index 39.4. Recommend sleep apnea evaluation . Health Concerns Section Related Observation LastModified by Organization Detai ls LastModified Time None Recorded Concern Status LastModified by Organization Details LastModified Time None Recorded Payers Encounter Date Sequence Insurance Name Policy Number Policy Hidalgo Covered Member ID Hidalgo Member ID Guarantor Name 10/15/2024 1 [employer] [place] (MEDICA[place]) [id number] Salena Calero [id number] Salena Judy Notes Date Note Type Note Provider Name and Address Organization Details Recorded Time 10/15/2024 text/html 38 year old bridget macario with No significant past medical history. Was [...] rhythm, right axis deviation. Marianela Preston MD [address], [place], [address], [email or web address] - [facility] - [place] & [place] 10/15/2024 10:35:07 OBGyn Episode No OBEpisode recorded.
--- OUTSIDE RECORDS SUMMARY | 2024-12-04 09:04 | XMS_ITS | Encounter Summary ---
Author Organization Healthcare Address [address] [place] [address] Care Team Providers Care Checker/Stocker Name Role Phone Pcp, No Primary Care Provider Megan Lockhart Unavailable Unavailable Aaliyah Corral LCSW Unavailable Unavailable Encounter Details Date Type Department Care Team (Late st Contact Info) Description 12/01/2021 Community [facility] [address] [place] [address] Kerry Walker, NETWORK PLANNER [address] [place] [address] Colon cancer screening (Primary Dx); Generalized abdominal pain Social History Tobacco Use Types Packs/Day Years Used Date Smoking Tobacco: Never Smokeless Tobacco: Never Alcohol Use Standard Drinks/Week Comments Not Currently 0 (1 standard drink = 0.6 oz pur e alcohol) PHQ-2 Answer Date Recorded Patient Health Questionnaire-2 Score 0 12/02/2021 Comments Unknown Sex and Gender Information Value Date Recorded [...] at all 12/02/2021 9:04 AM EDT Gladys Gonzalez, RN Patient Health Questionnaire -2 Score 0 12/02/2021 9:04 AM EDT Gladys Gonzalez, RN documented as of this encounter Plan of Treatment Upcoming Encounters Date Type Department Care Team (Late st Contact Info) Description 01/27/2025 11:00 AM EDT Ancillary Procedure [facility] [address] [place] [address] 01/27/2025 12:30 PM EDT Office Visit [facility] [address] [place] [address] Katie Katz PA [address] [place] [address] documented as of this encounter Visit Diagnoses Diagnosis Colon cancer screening- Primary Special screening for malignant neoplasms, colon Generalized abdominal pain Abdominal pain, generalized documented in this encounter Additional Health Concerns Infection Onset Date Last Indicated Resolved Time COVID-19 Rule-Out 12/26/2021 12/26/2021 12/26/2021 5:22 PM EDT documented as of this encounter Care Teams Checker/Stocker Relationship Specialty Start Date End Date Pcp, Naomie [address] [place] [address] PCP - General Family Medicine 10/21/21 Megan Finn Logistics Technician Seo Manager 02/17/22 06/05/23 Aaliyah Corral, [place] [id number] Logistics Technician Seo Manager 11/04/21 04/02/24 documented as of this encounter
--- OUTSIDE RECORDS SUMMARY | 2024-12-04 09:04 | XMS_ITS | Encounter Summary ---
Author Organization Healthcare Address [address] [place] [id number] Care Team Providers Care Network Technical Analyst Name Role Phone Pcp, No Primary Care Provider Megan Lockhart Unavailable Unavailable Aaliyah Corral LCSW Unavailable Unavailable Encounter Details Date Type Department Care Team (Late st Contact Info) Description 06/04/2023 Community [facility] [address] [place] [address] Evita Garcia, [address] [place] [address] Abdominal pain, unspecified abdominal location (Primary Dx) Social History Tobacco Use Types Packs/Day Years [...] as of this encounter Functional Status * Calculated C-SSRS Risk Score (Lifetime/Recent) Answer Date of Assessment Author No Risk Indicated 06/06/2023 12:00 PM Huy Collins RN * Question Answer Date of Assessment Author 1. Wish to be (Past 1 Month) No 024 12:00 PM Huy Collins RN 2. Non-Specific Active Suici damion Thoughts (Past 1 Month) No 06/06/2023 12:00 PM EST Luisito, Justi n C, RN 6. Suicidal Behavior (Lifetime) No 12:00 PM EST Huy Jorge, RN documented as of this encounter Plan of Treatment Upcoming Encounters Date Type Department Care Team (Late st Contact Info) Description 01/27/2025 11:00 AM EDT Ancillary Procedure [facility] [address] [place] [address] 01/27/2025 12:30 PM EDT Office Visit [facility] [address] [place] [address] Katie Katz PA [address] [place] [address] documented as of this encounter Visit Diagnoses Diagnosis Abdominal pain, unspecified abdominal location- Primary documented in this encounter Additional Health Concerns Assessment Noted Time A fall risk assessment has been complete d for the patient 12/02/2021 9:04 AM EDT documented as of this encounter Care Teams Network Technical Analyst Relationship Specialty Start Date End Date Pcp, No [address] [place] [address] PCP - General Family Medicine 10/21/21 Megan Finn Housekeeper/Custodian/Laundry Worker Pasteurizing Supervisor 02/17/22 06/05/23 Aaliyah Corral, [place] [address] Housekeeper/Custodian/Laundry Worker Pasteurizing Supervisor 11/04/21 04/02/24 documented as of this encounter
--- OUTSIDE RECORDS SUMMARY | 2024-12-04 09:05 | XMS_ITS | Patient Health Record ---
Author Organization [facility] Address [address] [place] [address] [place] [address] Care Team Providers Care Supervisor Cook House Name Role Phone LAMONT MALIN Primary Care Provider Lamont Malin MD Unavailable Unavailable Reason For Referral No Information Problems Problem Type SNOMED Code ICD Code Onset Dates Problem Status W/U Status Risk Notes Problem Chronic hepatitis C (867688076) Chronic viral hepatitis C (B18.2) Active confirmed Problem Hepatitis B carrier (433043916) Hepatitis B carrier (B18.1) Active confirmed Problem Substance abuse (5333532497) Substance abuse (F19.10) Active confirmed Plan Of Treatment No Information Insurance Providers Payer Name Payer Address Payer Phone Subscriber Number Group Number Insured Name Patient Relationship to Insured Coverage Start Date Coverage End Date [facility] [place]ICAID[place] [address] [address] [place] [address] [id number] Nahomy Kim Self - patient is the insured Medical (General) History Surgical History Surgery Date(Month/Year) [place] 2003 Hospitalization History Reason Date(Month/Year) [facility] had babay 2010
--- OUTSIDE RECORDS SUMMARY | 2024-12-04 09:05 | XMS_ITS | Encounter Summary ---
Author Organization [facility] Address [address] [place] [address] Care Team Providers Care Hand Sample Maker Name Role Phone Pcp, No Primary Care Provider Unavailabl e Reason for Referral * Consultation (Routine) - Closed Specialty Diagnoses / Procedures Referred By Contac t Referred To Contact Diagnoses Morbid obesity (CMS/HCC) Rose Marie Becker PA [address] [place] [address] [place] [address] Phone: tel: fax: Referral ID Status Reason Start Date Expiration Date V isits Requested Visits Authorized [id number] Closed Specialty Services Required 10/08/2024 04/09/2026 1 1 Encounter Details Date Type Department Care Team (Late st Contact Info) Description 10/08/2024 Orders Only [facility] Medicine [facility] [address] [place] [address] Rose Marie Becker PA [address] [place] [address] [place] [id number] Morbid obesity (CMS/HCC) (Primary Dx) Social History Tobacco Use Types [...] on file documented as of this encounter Plan of Treatment Upcoming Encounters Date Type Department Care Team (Late st Contact Info) Description 01/27/2025 11:00 AM EDT Ancillary Procedure [facility] [address] [place] [address] 01/27/2025 12:30 PM EDT Office Visit [facility] [address] [place] [address] Katie Katz PA [address] [place] [address] Scheduled Referrals Name Type Priority Associated Diagnoses Order Schedule Ambulatory referral to Pulmonology Outpatient Referral Routine Morbid obesity (CMS/HCC) Expected: 10/08/2024 (Approximate), Expires: 04/10/2026 documented as of this encounter Visit Diagnoses Diagnosis Morbid obesity (CMS/HCC)- Primary Morbid obesity documented in this encounter Additional Health Concerns Assessment Noted Time A fall risk assessment has been complete d for the patient 12/02/2021 9:04 AM EDT documented as of this encounter Care Teams Hand Sample Maker Relationship Specialty Start Date End Date Pcp, Naomie [address] [place] [address] PCP - General Family Medicine 10/21/21 documented as of this encounter
--- OUTSIDE RECORDS SUMMARY | 2024-12-04 09:05 | XMS_ITS | Patient Health Record ---
Author Organization [facility] Address [address] [place] [address] Care Team Providers Care Drive Away Driver Name Role Phone Vanessa Del Toro Primary Care Provider Migration, Provider Unavailable Unavailable Allergies No Known Allergies Reason For Referral No Information Medications Medication SIG (Take, Route, Frequency, Duration) Notes Start Date End Date Status metroNIDAZOLE 500 MG Tablet 1 tab(s) ora lly 2 times a day; Duration: 7 day(s) 08/26/2020 Active Escitalopram Oxalate 10 MG Tablet 1 tab(s) orally once a day; Duration: 30 day(s) 09/03/2020 Active Social History Social History Additional Details Category Social Info Options Details Social History Occupation alf inmate Problems Problem Type SNOMED Code ICD Code Onset Dates Problem Status W/U Status Risk Notes Problem Mild recurrent major depression (49892740) Major depressive disorder, recurrent, mild (F33.0) Active confirmed Encounters Encounter Location Date Provider Diagnosis [facility] [address] [place] [address] 11/01/2024 Provider Migration Major depressive disorder, recurrent, mild F33.0 Assessments Encounter Date Diagnosis (ICD Code) Assessment Notes Treatment Notes Treatment Clinical Notes Section Notes 11/01/2024 Major depressive disorder, recurrent, mild (ICD-10 - F33.0) Plan Of Treatment No Information Medical (General) History Surgical History Surgery Date(Month/Year)
--- OUTSIDE RECORDS SUMMARY | 2024-12-04 09:05 | XMS_ITS | Continuity of Care Document ---
Author Organization [place] - [facility] Bariatrics and Adv Surg Address [address] [place] [address] Care Team Providers Care Portable Power Tool Repairer Name Role Phone VINNY CABRERA Primary Care Provider Assessment Encounter Date Assessment Date Assessment LastModified by Organization Details LastModified Time 12/02/2024 12/02/2024 The patient is doing well. [...] understand this plan and agree to comply. [email or web address] Not available 12/02/2024 09:36:14 Plan of Treatment Reminders Order Date Submit Date Provider Last Modified By Organization Details Last Modified Time Details Appointments OV EST 20 2024 11:40A M LUISA MESSINA NP Not available Not available Not available Lab None recorded. Referral None recorded. Procedures None recorded. Surgeries None recorded. Imaging None recorded. Medication Orders omeprazol e 20 mg capsule,d elayed release 2024 025 [facility], [address], [address], 12/02/2024 09:36:45 Patient TargetsNo targets recorded. Patient InstructionsNo instructions recorded. Reason for Referral None Reported. Problems Name Problem SNOMED Code Status Onset Date Resolution Date Notes Provider Name and Address Organization Details Recorded Time Severe obesity 0276759704672 4 Active 2024 DONNA Garcia [address] , [place], [address] , [facility] & [place] 5 12:27:12 Iron deficiency anemia 61803629 Active 2024 DONNA Garcia [address] , [place], [address] , [facility] & [place] 5 13:35:31 Vitamin D deficiency 88314433 Active 2024 DONNA Garcia [address], [place], [address] , [facility] & [place] 5 13:35:49 Problem Notes None recorded. Procedures Surgical History Date Name Laterality Status Provider Name and Address Organization Details Recorded Time 11/25 laparoscopic sleeve gastrectomy completed GIBRAN MESSINA NP [address] [facility] [address] , [facility] & [place] 5 08:26:07 cholecystectomy completed DONNA Garcia [address], [place], [address] , [facility] & [place] 5 13:32:51 section completed Megan [place] [facility] & [place] 5 16:40:36 extraction of wisdom tooth completed Megan [place] [facility] & [place] 5 16:40:48 Tubal Ligation completed Megan [place] [facility] & [place] 5 16:40:59 esophagogastroduodenoscopy completed Megan [place] [facility] & [place] 5 11:47:12 Imaging Results None recorded. Procedure [...] Updated DateTime 5 165.1 cm 37.2 kg/m2 045805. 89 g 97.8 [degF] 62 /min 131/81 mm[Hg] Megan Camp [facility] & [place] 5 09:31:33 Social History Question Answer Notes LastModified by Kiwi Details LastModified Time Tobacco Smoking Status Never Smoker Megan Camp [facility], [facility] & [place] 10/07/2024 11:34:20 What Is Your Level Of Caffeine Consumption? Occasional [email or web address] Information not available 11/12/2024 Sex: Unknown Functional Status Question Answer Note LastModified by Kiwi Details LastModified Time Do you use any illicit or recreational drugs? 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 None [email or web address] Information not available 10/07/2024 Mental Status None [...] SNOMED-CT Code Diagnosis ICD10 Code Diagnosis Note [id number] MIRNA AYERS MD [facility]ariat[facility] s and Adv Surg [address] [place] [address] [address] [place] [address] 11/12/2024 08:01:41 11/12/2024 14:36:21 Vitamin D deficiency 59075674 E55.9 Iron defic iency anemia 27975388 D50.9 Morbid obesity 253917970 E66.01 Pre-surger y evaluation 675567060 Z01.818 Postoperative pain 89860 9007 G89.18 patient to continue current gabapentin prescripti on postoperat ively. Candidiasis of vagina 72 113830 B37.31 [id number] GIBRAN MESSINA NP [facility] Adv [facility] [address] [place] [address] [address] [place] [address] 12/02/2024 08:20:39 12/02/2024 14:14:27 History of gastrectomy 060563185 Z90.3 Heartburn 19582498 R12 Patient to continue on omeprazole daily. Health Concerns Section Related Observation LastModified by Organization Detai ls LastModified Time None Recorded Concern Status LastModified by Organization Details LastModified Time None Recorded Payers Encounter Date Sequence Insurance Name Policy Number Policy Hidalgo Covered Member ID Hidalgo Member ID Guarantor Name 12/02/2024 1 [facility] (MEDICAID HMO) [id number] Nahomy Kim [id number] Nahomy Kim Notes Date Note Type Note Provider Name and Address Organization Details Recorded Time 12/02/2024 text/html Patient presents for 1wk Post-Op Check [...] after Weight loss Surgery. EUNICE MESSINA, AMADO [address], [place], [address], [facility] [place] & [place] 12/02/2024 14:08:31 OBGyn Episode No OBEpisode recorded.
--- OUTSIDE RECORDS SUMMARY | 2024-12-04 09:05 | XMS_ITS | Encounter Summary ---
Author Organization Healthcare Address [address] [place] [address] Care Team Providers Care Bead Maker Name Role Phone Pcp, No Primary Care Provider Unavailabl e Encounter Details Date Type Department Care Team (Late st Contact Info) Description 10/22/2024 Results Follow-Up [facility] Medicine Specialties [address] [place] [address] Katie Katz PA [address] [place] [address] Social History Tobacco Use Types Packs/Day Years [...] television Not at all 10/22/2024 8:04 AM EDT Erin Sabillon Moving or speaking so slowly [...] Karen Sabillon documented as of this encounter Miscellaneous Notes * Result Encounter Note - Katie Katz PA - 10/22/2024 12:25 PM EDT Normal CXR documented in this encounter Plan of Treatment Upcoming Encounters Date Type Department Care Team (Late st Contact Info) Description 01/27/2025 11:00 AM EDT Ancillary Procedure [facility] Medicine Specialties [address] [place] [address] 01/27/2025 12:30 PM EDT Office Visit [facility] Medicine Specialties [address], [address] [place] [address] Katie Katz PA [address] [place] [address] documented as of this encounter Visit Diagnoses Not on filedocumented in this encounter Additional Health Concerns Assessment Noted Time PHQ-9 Depression Total Score: 0 10/23/19 25 8:04 AM EDT A fall risk assessment has been complete d for the patient 10/22/2024 8:04 AM EDT A Body Mass Index follow-up plan has been documented for the patient 10/22/2024 9:21 AM EDT documented as of this encounter Care Teams Bead Maker Relationship Specialty Start Date End Date Pcp, [place] [address] PCP - General Family Medicine 10/21/21 documented as of this encounter
--- OUTSIDE RECORDS SUMMARY | 2024-12-04 09:05 | XMS_ITS | Clinical Summary ---
Author Organization [facility] Address [address] [place] [address] Care Team Providers Care Legal Intern Name Role Phone Pcp, No Primary Care Provider Unavailabl e Allergies No known active allergies Medications * This document contains information received from the source organization and may not represent a complete record from that organization. Buprenorphine HCl-Naloxone HCl (Suboxone) 12-[address] 1 film every day by sublingual route. Active gabapentin (Neurontin) 100 MG capsule TAKE 1 CAPSULE BY MOUTH 4 TIMES DAILY Active cyanocobalamin (Vitamin B-12) 1000 MCG/ML injection Active Mometasone Furo-Formoterol Fum (Dulera) 50-5 MCG/ACT aerosol Inhale 2 Inhalations 2 times a day. May use as a rescue inhaler for chest tightness, cough, wheezing or shortness of breath. Max 12 inhalations per day. 13 g 11 5 10/23/19 26 Active Active Problems Problem Noted Date Diagnosed Date Obesity (BMI 35.0-39.9 without comorbidity) 09/26 Vitamin D deficiency 10/07/2024 Opioid abuse, in remission 09/25/2024 Radiculopathy, lumbar region 09/04/2024 Segmental and somatic dysfunction 06/23/2024 Segmental and somatic dysfunction of upper extre mity 06/23/2024 Radiculopathy, cervicothoracic region 06/13/2024 Pain in right shoulder 06/09/2024 Spondylosis without myelopat hy or radiculopathy, cervical region 01/02/2024 Carpal tunnel syndrome 12/25/2023 Pain in left wrist 12/25/2023 Polyneuropathy, unspecified 12/25/2023 Unspecified mononeuropathy of bilateral lower li mbs 12/06/2023 Other cervical disc degenera tion, unspecified cervical region 12/05/2023 Radiculopathy, cervical region 12/05/2023 Open bite of right hand, initial encounter 11/19 Pain in left leg 11/20/2023 Pain in right leg 11/20/2023 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/22/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; remission since 2013 S/P laparoscopic cholecystectomy 05/28/2003 Overview (10/22/2024): gallstones Encounters Date Type Department Care Team Description 10/22/2024 9:29 AM EDT - 10/22/2024 11:59 PM EDT Hospital Encounter [facility] Radiology [address] [place] [address] Dyspnea on exertion; Mild persistent asthma without complication Discharge Disposition: Home or Self Care 10/22/2024 8:30 AM EDT Ancillary Procedure [facility] Medicine Specialties [address] [place] [address] Dyspnea on exertion 10/22/2024 8:00 AM EDT Office Visit [facility] Medicine Specialties [address] [place] [address] Katie Katz PA Mild persistent asthma without complication (Primary Dx); Morbid obesity (CMS/HCC); Dyspnea on exertion; Encounter for preoperative pulmonary examination 10/22/2024 Results Follow-Up [facility] Medicine Specialties [address] [place] [address] Katie Katz PA 10/22/2024 Travel 10/08/2024 Orders Only [facility] Medicine Specialties [address] [place] [address] Rose Marie Becker PA Morbid obesity (CMS/HCC) (Primary Dx) from Last 3 Months Immunizations Immunization Administration Dates Next Due Hep A / Hep B 03/21/2010 Hep B, Adolescent or Pediatric 09/04/1997,1996,03/04/1997 Hep B, Adolescent/High Risk 09/04/1997,,03/04/1997 MMR 03/04/1997 TD (adult), 2 Lf tetanus tox oid, preservative free, adsorbed 03/04/1997 Tdap 11/20/2023,10/27/2021 Social History Tobacco Use Types Packs/Day Years [...] on file Sexual Orientation Not on file Last Filed Vital Signs Vital Sign Reading [...] Mass Index 39.66 10/22/2024 8:01 AM EDT Plan of Treatment Upcoming Encounters Date Type Department Care Team (Late st Contact Info) Description 01/27/2025 11:00 AM EDT Ancillary Procedure [facility] Medicine Specialties [address] [place] [address] 01/27/2025 12:30 PM EDT Office Visit [facility] Medicine Specialties [address] [place] [address] Katie Katz, PA [address] [place] [address] Health Maintenance Due Date Last Done Comments [facility]-Infant/Child/Adol SDOH Screenings 1985 [facility]-Varicella Vaccines (1 of 2 - 13+ 2-dose series) 1998 HPV Vaccines (1 - 3-dose series) 2000 [facility]- SDOH Screenings 12/05/2003 [facility]-Adult SDOH Screenings 12/05/2003 [facility]-Pneumococcal Vaccine: Pediatrics (0 to 5 Years) and At-Risk Patients (6 to 49 Years) (1 of 2 - PCV) 2004 [facility]-Pap Smear 08/02/2007 08/01/2004 [facility]-Cervical Cancer Screening 12/05/2015 [facility]-HPV/Cotest 12/05/2015 08/01/2004 [id number] Vaccine ( - season) 2024 [facility]-Influenza Vaccine (#1) 2025 [facility]-Depression Screening 10/22/2025 10/22/2024, 09/26 [facility]-DTaP,Tdap,and Td Vaccines (4 - Td or Tdap) 11/19/2033 11/20/2023, 10/27/2021, 03/04/1997 [facility]-Zoster Vaccines (1 of 2) 12/05/2035 [facility]-Hepatitis A Vaccines Aged Out 03/21/2010 No longer eligible based on patient's age to complete this topic [facility]-Hepatitis B Vaccines Completed 010, 09/04/1997, 09/04/1997, Additional history exists [facility]-HIV Screening Completed 11/17/2021, 11/04/2021 [facility]-Obesity Intervention Completed 10/22/2024 [facility]-HIB Vaccines Aged Out No longer e ligible based on patient's age to complete this topic [facility]-IPV Vaccines Aged Out No longer e ligible based on patient's age to complete this topic [facility]-Rotavirus Vaccines Aged Out No lo nger eligible based on patient's age to complete this topic Procedures Procedure Name Priority Date/Time Associated Diagnosis Comments XR CHEST 2 VIEWS Routine 10/22/2024 9:49 AM EDT Dyspnea on exertion Mild persistent asthma without complication HC EVAL OF BRONCHOSPASM Routine 10/23/19 8:58 AM EDT Dyspnea on exertion HIV 1/2 ANTIBODY/ANTIGEN SCREEN WITH REFLEX TO HIV I/II DIFFERENTIATION Routine 11/17/2021 1:00 PM EDT Chronic hepatitis C without hepatic coma (CMS/HCC) CYTO DATA CONVERSION Routine 08/01/2004 12:00 AM EST from Last 3 Months or Most Recently Relevant to Health Maintenance Results * XR Chest 2 Views (10/22/2024 [...] the final edited report. Drafted by Kiko Bownes MD on 10/22/2024 10:02 AM Final report signed by Maco Perez MD on 10/22/2024 10:14 AM Katie THOMPSON IMG XR PROCEDURES Final Resul t * (ABNORMAL) Pulmonary function testing (10/22/2024 8:58 AM EDT) [id number] 4.09 3.06 - 4.64 L VYAIRE PFT DRL1DOH 3.86 3.06 - 4.64 L VYAIRE PFT CAR03RRBF 3.00 2.51 - 3.76 L VYAIRE PFT FEV1 PRE 2.42(A) 2.51 - 3.76 L VYAIRE PFT [id number] 73.29 71.42 - 91.53 % VYAIRE PFT FEV1/FVC PRE 62.63(A) 71.42 - 91.53 % VYAIRE PFT HFK25-23%_POST 2.35 2.02 - 4.84 L/s VYAIRE PFT BEJ92-36% PRE 1.42(A) 2.02 - 4.84 L/s VYAIRE PFT [id number] 5.58 5.38 - 8.91 L/s VYAIRE PFT PEF PRE 4.60(A) 5.38 - 8.91 L/s VYAIRE PFT Anatomical Region Laterality Modality PFT 10/22/2024 8:25 AM EDT Narrative 10/22/2024 9:08 AM EDT Pulmonary Function Testing Report Nahomy Calero 38 y.o. underwent pulmonary function testing today at the [facility]. The patient underwent spirometry testing. All tests were appropriately administered via ATS/ERS criteria. Spirometry: Reduced FEV1 with a normal FVC and reduced ratio consistent with mild obstruction. There is a significant positive bronchodilator response. Trend: There are no prior studies for comparison. Katie Katz PA PFT ORDERABLES Final Result * HIV 1 & 2 Antibody/Antigen Screen (11/17/2021 1:00 PM EDT) HIV 1 & 2 Antibody/Anti gen Screen Nonreactive Nonreactive 11/17/2021 8:22 PM EDT [facility] Blood Venous blood specimen / Unknown Venipuncture / Unknown 11/17/2021 1:00 PM EDT 11/17/2021 2:02 PM EDT Masha Sharif ROOM SERVICE FOOD SERVICE ATTENDANT LAB BLOOD ORDERABLES Final Result [facility] [address] [place] [address] * Cytology (08/01/2004 12:00 AM EST) 08/01/2004 08/03/2004 Narrative [facility] - 08/08/2004 9:09 AM EST [facility] MR #: [id number] [facility] NAHOMY [place], [place] [address] 1985 (Age: 18) FW Collect Date: 08/01/2004 00:00 Receipt Date: 08/03/2004 00:00 Page 1 DEPARTMENT OF PATHOLOGY AND LABORATORY MEDICINE CYTOPATHOLOGY REPORT Email: [email or web address] [phone] ATTENDING MD/Practitioner: Alayna Garland MD Service: PAT Location: OUTS Reported: 08/08/2004 09:09 Collected: 08/01/2004 00:00 INTERPRETATION THIN PREP (CERVICAL/VAGINAL): NEGATIVE FOR INTRAEPITHELIAL LESION OR MALIGNANCY. SATISFACTORY FOR EVALUATION; ENDOCERVICAL/TRANSFORMATION ZONE COMPONENT ABSENT/INSUFFICIENT. Slide scanned and imaged by [employer] ThinPrep Imaging System with manual review of all selected lopez. Electronically Signed Out By LESTER Nelson (ASCP) LESTER Nelson (ASCP) Cervical cytology is a screening test primarily for squamous cancers and precursors and has associated false negative and positive results. New technologies such as liquid based sampling may decrease but will not eliminate all false negative results. Regular screening and follow-up of unexplained clinical signs and symptoms are recommended to minimize false negative results. Please see the ASCCP website (www.asccp.org) for followup recommendations. If HPV testing was requested, correlation with the results is suggested (please call Microbiology at [phone] for results). CLINICAL INFORMATION: Menstrual History: : First Trimester Date of Last Menstrual Period: 05/24/04 SPECIMEN DESCRIPTION: A: THIN PREP (CERVICAL/VAGINAL) THIN PREP PROCESS CELLULAR ENHANCEMENT ICD: V76.2 CERVIX, SPECIAL SCREENING FOR MALIGNANT NEOPLASM F: A; RT IMAGE [id number] SNOMED CODES: A; [id number] R12596 M-75179 M-[id number] [id number] In cases where a pathologist has signed out the report, the service has been rendered in part by a resident. The signing pathologist has performed and is responsible for the reported pathologic evaluation. us Historical Provider MD LAB PATHOLOGY ORDERABLES Final Result [facility] from Last 3 Months or Most Recently Relevant to Health Maintenance Insurance Care Teams Legal Intern Relationship Specialty Start Date End Date Rashi, [place] [address] PCP - General Family Medicine 10/21/21
--- OUTSIDE RECORDS SUMMARY | 2024-12-04 09:05 | XMS_ITS | Continuity of Care Document ---
Author Organization [facility] Address [address] [place] [address] Care Team Providers Care Mineral Economist Name Role Phone VINYN CABRERA Primary Care Provider [phone] Assessment No assessment recorded. Plan of Treatment Reminders Order Date Submit Date Provider Last Modified By Organization Details Last Modified Time Details Appointments OV EST 20 2024 11:40A M LUISA MESSINA NP Not available Not available Not available Lab vitamin A (retinol) , serum 2024 025 [place] [facility], [address], [address], [place], [address], 10/13/2024 18:36:45 vitamin E, serum 2024 025 [place] [facility], [address], [address], [place], [address], 10/13/2024 18:36:43 PTH (parathyr oid hormone), intact, serum or plasma 2024 025 [place] [facility], [address], [address], [place], [address], 10/13/2024 18:36:48 CBC w/ auto diff 2024 025 [place] [facility], [address], [address], [place], [address], 10/13/2024 18:36:41 CMP, serum or plasma 2024 025 [place] [facility], [address], [address], [place], [address], 10/13/2024 18:36:42 HbA1c (hemoglob in A1c), blood 2024 025 [place] [facility], [address], [address], [place], [address], 10/13/2024 18:36:44 lipid panel, serum 2024 025 [place] [facility], [address], [address], [place], [address], 10/13/2024 18:36:43 TSH + free T4, serum 2024 025 [place] [facility], [address], [address], [place], [address], 10/13/2024 18:36:41 folate, serum 2024 025 [place] [facility], [address], [address], [place], [address], 10/13/2024 18:36:45 methylmal demetria, QN, serum or plasma 2024 025 [place] [facility], [address], [address], [place], [address], 10/13/2024 18:36:47 thiamine, QN, blood 2024 025 [place] [facility], [address], [address], [place], [address], 10/13/2024 18:36:47 vitamin D, 25-hydrox y, total, serum 2024 025 [place] [facility], [address], [address], [place], [address], 10/13/2024 18:36:46 iron + TIBC + ferritin, serum 2024 025 [place] [facility], [address], [address], [place], [address], 10/13/2024 18:36:40 Referral None recorded. Procedures None recorded. Surgeries esophagog astroduod enoscopy (SURG) 2024 025 [email or web address] Evita Dodson MD, [address], [address], [place], [address], 11/21/2024 13:37:56 Imaging XR, chest, 2 view 2024 025 [facility] (Centralized Scheduling), [address], [place], [address], 10/07/2024 15:39:19 electroca rdiogram, routine ECG, 12 leads min 2024 025 [place] Not available 10/14/2024 04:22:01 Medication Orders None recorded. Patient TargetsNo targets recorded. Patient InstructionsNo instructions recorded. Reason for Referral None Reported. Results Created Date Observation Date Name Description Value Unit Range Abnormal Flag Note LastModifiedBy Organization Detail LastModifiedTime 10/08/1910/07/2024 [facility] [address] [place] [address] Phone: Fax: Name: SALENA CALERO Exam Date: : 986 Age 38 years Gender : F Access ion: [id number] Physic jessica: MARS GAN Facili ty: [facility] Facili ty HSV: Outpat ient Exam: CHEST [...] Thank you for referr SALENA Dubon to [facility]. Legall y authen ticate d by JOSE ARELLANO W 10-07 15:09: 58 CC'ed Logic: Orderi ng Provid er: PILE HEATHE R Attend ing Provid er: PILE HEATHE R Referr ing Provid er: PILE HEATHE R Admitt ing Provid er: PILE HEATHE R [facility] - Physical Therapy [address] [place] [address], [place], [address], 10/08/2024 14:35:07 10/16/19 25 10/15/2024 elect rocar diogr am No observ ation record ed. [facility] [place] [address], [place], [address], 10/15/2024 14:33:16 10/16/19 25 10/15/2024 elect rocar diogr am No observ ation record ed. [facility] [address], [place], [address], 10/15/2024 14:33:07 Result Notes Documentation Provider Name and Address Organization Details Recorded Time Xr, Chest, 2 View : [facility] [address] [place] [address] Name: SALENA CALERO Exam Date: 10/07/2024 : 1985 Age 38 years Gender: F Physician: GABRIELLA GAN Facility: [facility] Facility HSV: Outpatient Exam: CHEST 2 [...] Avinash Cuellar MD 10/07/2024 03:34 PM EDT RP Dictated By: AVINASH CUELLAR Transcribed By: Transcribed On: 10/07/2024 3:09 PM Electronically signed by: AVINASH CUELLAR 10/07/2024 Thank you for referring SALENA CALERO to [facility]. Legally authenticated by THIERRY Garcia 2024-10-07 15:09:58 CC'ed Logic: Ordering Provider: ELVIA QUIROZ Attending Provider: ELVIA QUIROZ Referring Provider: ELVIA QUIROZ Admitting Provider: DONNA Andrews [address] [place], [address], [facility] & [place] 10/08/2024 14:35:07 Problems Name Problem SNOMED Code Status Onset Date Resolution Date Notes Provider Name and Address Organization Details Recorded Time Severe obesity 3973501375920 4 Active 2024 DONNA Garcia [address] , [place], [address] , [facility] DENISE [facility] & [place] 12:27:12 Iron deficiency anemia 61323997 Active 2024 DONNA Garcia [address] , [place], [address] , SHRUTHI FRANCESCANT [facility] & [place] 5 13:35:31 Vitamin D deficiency 99573365 Active 2024 DONNA Garcia [address], [place], [address] , [facility] & [place] 5 13:35:49 Problem Notes None recorded. Procedures Surgical History Date Name Laterality Status Provider Name and Address Organization Details Recorded Time 11/25 laparoscopic sleeve gastrectomy completed GIBRAN MESSINA NP [address], [place], [address] , [facility] & [place] 5 08:26:07 cholecystectomy completed DONNA Garcia [address], [place], [address] , [facility] & [place] 5 13:32:51 section completed Megan Camp [facility] & [place] 5 16:40:36 extraction of wisdom tooth [facility] [place] 5 16:40:48 Tubal Ligation completed Megan Camp [facility] & [place] 5 16:40:59 esophagogastroduodenoscopy completed Megan Camp [facility] & [place] 5 11:47:12 Imaging Results None recorded. Procedure [...] Updated DateTime 5 165.1 cm 40.1 kg/m2 110796. 76 g 97.3 [degF] 63 /min 132/60 mm[Hg] Megan HAWKINS - [place] - [place] & [place] 5 11:35:51 Social History Question Answer Notes LastModified by Organizat ion Details LastModified Time Tobacco Smoking Status Never Smoker Megan Camp [facility], [place] - [facility] - [place] & [place] 10/07/2024 11:34:20 What Is Your Level Of Caffeine Consumption? Occasional [email or web address] Information not available 11/12/2024 Sex: Unknown Functional Status Question Answer Note LastModified by [employer] Details LastModified Time Do you use any illicit or recreational drugs? 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 on suboxone [email or web address] Information not available 10/07/2024 What is your level of alcohol consumption? None [email or web address] Information not available 10/07/2024 Mental Status None [...] SNOMED-CT Code Diagnosis ICD10 Code Diagnosis Note [id number] DONNA Garcia [facility] [place] [facility] and Adv [facility]urg [address] [facility] [address] [place] [address] 10/07/2024 11:10:01 10/07/2024 14:34:05 Disorder of function of stomach 884902636 K31.89 Pre-surger y evaluation 944893975 Z01.818 Obesity screening 215764 005 Z13.89 Severe obesity 491862473 1 9104 E66.813 Z68.41 The patient will [...] has been completed Iron defic iency anemia 67868092 D50.9 Vitamin D deficiency 347 [id number] [facility] [place] [facility] s and Adv Surg [address] [place] [address] 10/07/2024 13:52:23 10/07/2024 14:19:01 Diet education 33791583 Z71.3 Completed nutrition evaluation and education with [...] to patient based on recommende d surgery. Health Concerns Section Related Observation LastModified by Organization Detai ls LastModified Time None Recorded Concern Status LastModified by Organization Details LastModified Time None Recorded Payers Encounter Date Sequence Insurance Name Policy Number Policy Hidalgo Covered Member ID Hidalgo Member ID Guarantor Name 10/07/2024 1 [facility] (MEDICAID HMO) [id number] Salena Calero [id number] Salena Calero Notes Date Note Type Note [...] patient to overeat are boredom. DONNA Garcia [address], [place], [address], [facility] & [place] 10/07/2024 14:30:01 5 text/html RDN met w/ [...] Goals for surgery: 170# Additional notes/comments: BREN PAIZ, RD [address], [place], [address], [facility] & [place] 10/07/2024 14:18:49 OBGyn Episode No OBEpisode recorded.
--- OUTSIDE RECORDS SUMMARY | 2024-12-04 09:05 | XMS_ITS | Encounter Summary ---
Author Organization Healthcare Address [address] [place] [address] Care Team Providers Care Waterproof Bag Sewer Name Role Phone Pcp, No Primary Care Provider Unavailabl e Encounter Details Date Type Department Care Team (Latest Contact Info) Description 10/22/2024 Travel Social History Tobacco Use Types Packs/Day Years [...] 01/27/2025 11:00 AM EDT Ancillary Procedure [facility] [address] [place] [address] 01/27/2025 12:30 PM EDT Office Visit [facility] [address], [address] [place] [address] Katie Katz, PA [address] [place] [address] documented as of this encounter [...] documented as of this encounter Care Teams Waterproof Bag Sewer Relationship Specialty Start Date End Date Pcp, [place] [address] PCP - General Family Medicine 10/21/21 documented as of this encounter
--- OUTSIDE RECORDS SUMMARY | 2024-12-04 09:05 | XMS_ITS | Continuity of Care Document ---
Author Organization [place] [facility] [place] [facility] Address [address] [place] [address] Care Team Providers Care Qa Specialist Name Role Phone VINNY CABRERA Primary Care Provider [phone] Assessment Encounter Date Assessment Date Assessment LastModified by Organization Details LastModified Time 11/12/2024 11/12/2024 Robotic sleeve gastrectomy All Risks, [...] the staple line. 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 [email or web address] Not available 11/12/2024 09:25:07 Plan of Treatment Reminders Order Date Submit Date Provider Last Modified By Organization Details Last Modified Time Details Appointments OV EST 20 2024 11:40A M LUISA MESSINA NP Not available Not available Not available Lab CBC w/ auto diff 2024 025 [place] [facility], [address], [address], [place], [address], 11/13/2024 10:37:02 CMP, serum or plasma 2024 025 [place] [facility], [address], [address], [place], [address], 11/13/2024 10:37:03 HbA1c (hemoglob in A1c), blood 2024 025 [facility], [address], [address], [place], [address], 11/13/2024 10:37:04 Referral None recorded. Procedures None recorded. Surgeries None recorded. Imaging None recorded. Medication Orders Diflucan 150 mg tablet 2024 025 [facility], [address], [address], 12/02/2024 09:56:07 Celebrex 100 mg capsule 2024 025 [facility], [address], [address], 11/12/2024 09:26:36 omeprazol e 20 mg capsule,d elayed release 2024 025 [email or web address] [facility], [address], [address], 12/02/2024 09:32:44 Patient TargetsNo targets recorded. Patient InstructionsNo instructions recorded. Reason for Referral None Reported. Results Created Date Observation Date Name Description Value Unit Range Abnormal Flag Note LastModifiedBy Organization Detail LastModifiedTime 10/16/19 25 10/15/2024 elect patricia carrera am No observ ation record ed. [facility] [place] [facility] [address], [place], [address], 10/15/2024 14:33:16 10/16/19 25 10/15/2024 elect patricia carrera am No observ ation record ed. [facility] [place] [facility] [address], [place], [address], 10/15/2024 14:33:07 Result Notes None recorded. Problems Name Problem SNOMED Code Status Onset Date Resolution Date Notes Provider Name and Address Organization Details Recorded Time Severe obesity 8304453289257 4 Active 2024 DONNA Garcia [address], [place], [address] , [facility] - [facility] [place] [facility] & [place] 5 12:27:12 Iron deficiency anemia 71765308 Active 2024 DONNA Garcia [address], [place], [address] , [facility] - [facility] [place] [facility] & [place] 5 13:35:31 Vitamin D deficiency 23253933 Active 2024 DONNA Garcia [address], [place], [address] , [facility] - [facility] [place] [facility] & [place] 5 13:35:49 Problem Notes None recorded. Procedures Surgical History Date Name Laterality Status Provider Name and Address Organization Details Recorded Time 11/25 laparoscopic sleeve gastrectomy completed GIBRAN MESSINA NP [address], [place], [address] , [facility] - [facility] [place] [facility] & [place] 5 08:26:07 cholecystectomy completed DONNA Garcia [address], [place], [address] , [facility] - [facility] [place] [facility] & [place] 5 13:32:51 section completed [facility] [place] [facility] [place] 5 16:40:36 extraction of wisdom tooth completed Megan Camp [facility] [place] [facility] & [place] 5 16:40:48 Tubal Ligation completed Megan Camp [place] - [facility] [place] [facility] & [place] 5 16:40:59 esophagogastroduodenoscopy completed Megan HAWKINS - [facility] [place] [facility] & [place] 5 11:47:12 Imaging Results None recorded. Procedure [...] Available Vitals Date Recorded Body height Body temperature Heart rate Body mass index (BMI) Body weight Systolic And Diastolic Provider Name and Address Organization Details Last Updated DateTime 165.1 cm 98.7 [degF] 56 /min 40.3 kg/m2 030795. 71 g 135/75 mm[Hg] Shasta Ambrosio [facility] & [place] 11:58:17 Social History Question Answer Notes LastModified by [employer] Details LastModified Time Tobacco Smoking Status Never Smoker Megan Camp [facility], [facility] & [place] 10/07/2024 11:34:20 What Is Your Level Of Caffeine Consumption? Occasional [email or web address] Information not available 11/12/2024 Sex: Unknown Functional Status Question Answer Note LastModified by [employer] Details LastModified Time Do you use any illicit or recreational drugs? 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 None [email or web address] Information not available 10/07/2024 Mental Status None [...] SNOMED-CT Code Diagnosis ICD10 Code Diagnosis Note [id number] Marianela Preston MD [facility] [address] [facility] [address] [place] [address] 10/15/2024 10:04:09 10/15/2024 10:28:50 Preoperative procedure 647548599 Z01.810 38-year-ol d female with no risk [...] time. Obesity ca used by energy imbalance 157397885 E66.812 E66.09 Z68.39 Body mass index 39.4. Recommend sleep apnea evaluation . [id number] MIRNA AYERS MD [facility] Bariat[facility] s and Adv Surg [address] [facility] [address] [place] [address] 11/12/2024 08:01:41 11/12/2024 14:36:21 Vitamin D deficiency 56506342 E55.9 Iron defic iency anemia 45959856 D50.9 Morbid obesity 231974005 E66.01 Pre-surger y evaluation 840438632 Z01.818 Postoperative pain 42091 9007 G89.18 patient to continue current gabapentin prescripti on postoperat ively. Candidiasis of vagina 72 272930 B37.31 Health Concerns Section Related Observation LastModified by Organization Detai ls LastModified Time None Recorded Concern Status LastModified by Organization Details LastModified Time None Recorded Payers Encounter Date Sequence Insurance Name Policy Number Policy Hidalgo Covered Member ID Hidalgo Member ID Guarantor Name 11/12/2024 1 [facility] (MEDICAID HMO) [id number] Nahomy Kim [id number] Nahomy Kim Notes Date Note Type Note Provider Name and Address Organization Details Recorded Time 11/12/2024 text/html The patient is here today to [...] have also undergone a class with the wash tub machine operator and have received clear instructions on what is required regarding fluid intake, protein intake and vitamin consumption postoperatively. The patient is being managed by their PCP for their anxiety and is currently stable. MIRNA AYERS MD [address] [facility] [facility], [place], [address], [facility] [place] & [place] 11/12/2024 13:14:39 OBGyn Episode No OBEpisode recorded.
[2024-12-04 09:24] VITALS: BP 117/60; PULSE 72; RESP 14; O2SAT 98; BMI 36.6
--- NOTE | 2024-12-04 09:29 | A.OFFVIS_ITS ---
[facility] Disclaimer: The information contained in this section may have been updated after the patient was seen, as this information can be updated by other users. Medical History BMI 34.0-34.9,adult BMI 37.0-37.9, adult Cervical radiculopathy Dog bite of right hand Neck pain Sciatica associated with disorder of lumbar spine Surgical History History of delivery History of tubal ligation Hx of cholecystectomy Family History Other No significant family history Social History Smoking Status: Never smoker alcohol intake: former substance use type: crack/cocaine current occupational status: other Travel in the last 8 weeks?: None household members: significant other housing: other marital status: single PM Subjective & Objective Subjective Subjective:: Patient is a pleasant 39-year-old female who presents today for medication refill. Today she rates her pain a 0 out of 10. Patient does state from her last visit she did end up going through weight loss surgery on November 25 and is doing well. She states she is already down 20 pounds. Patient is currently managed with gabapentin 100 mg 4 times a day, Flexeril 5 mg 3 times a day and compounded cream from our office. She denies any side effects. Aspirin has been reviewed and is appropriate. Review of Systems: General: No recent weight changes, no fever, no sleep disturbances Respiratory: No cough, no shortness of air, no recurring pulmonary infections Cardiovascular/peripheral vascular: No chest pain, no palpitations, no edema, no shortness of breath Gastrointestinal: No new onset incontinence, normal bowel movements reported Genitourinary: No new onset incontinence Musculoskeletal: Chronic back pain Psychiatric: [Normal mood/affect] Neurological: [Denies weakness in extremities], [denies balance issues] Pain at rest (0-10 scale): 0 Objective Objective:: Physical Exam: General: Alert and oriented x3, no acute distress, pleasant and cooperative Lungs: Respirations even and unlabored, symmetrical chest expansion Eyes: PERRL Musculoskeletal: Flexion and extension of lumbar [spine] within normal limits Neurological: Speech clear, no gross sensory deficit Has patient had previous pain injection?: No Conservative treatment options previously tried: Prescription medications Length of treatment: Longer than 12 weeks Meds Home Medications and Allergies Home Medications ?Medication ?Instructions ?Recorded ?Confirmed ?Type buprenorphine 2 mg-naloxone 0.5 mg 2 tab sublingual DA YO 07/17/24 12/04/24 History sublingual tablet gabapentin 100 mg capsule 100 mg PO QID #120 caps 08/2612/04/24 Rx multivitamin 1 tab PO DAILY 10/29/2411/25 History naloxegol 25 mg tablet (Movantik) 25 mg PO DAILY #30 t abs 10/29/24 12/04/24 Rx sennosides 8.6 mg tablet (Natural 8.6 mg PO DAILY PRN constipation 10/29/24 12/04/24 Rx Senna Laxative) #30 tabs cyanocobalamin (vitamin B-12) 1,000 mcg IM QWEEK 11/0612/04/24 History 1,000 mcg/mL injection solution mometasone-formoterol HFA 50 mcg-5 2 puff inhalation B ID 11/06/24 12/04/24 History mcg/actuation aerosol inhaler (Dulera) New Prescriptions to Start Prescriptions: Allergies Allergy/AdvReac Type Severity Reaction Status Date / Time No Known Allergies Allergy Verified 11/06/24 10:19 Assessment and Plan *Assessment and plan (1) Degenerative disc disease, lumbar: Status: Acute Category: Medical Code(s): M51.369 - Other intervertebral disc degeneration, lumbar region without mention of lumbar back pain or lower extremity pain (2) Neuropathy involving both lower extremities: Status: Acute Category: Medical Code(s): G57.93 - Unspecified mononeuropathy of bilateral lower limbs Plan I will refill the patient's Flexeril and gabapentin and provide a 3-month supply of this medication. Patient will return to clinic in 3 months for reevaluation of symptoms and plan of care. Patient has been instructed to contact the clinic with any concerns before the next appointment. Dr. Fontenot has reviewed this note and agrees with this plan of care. This note was dictated using voice recognition software and make contain errors or omissions. All injections are used with Lidocaine, Bupivacaine and dexamethasone. Occasionally urine drug screen is needed to verify patient's compliance with our office pain contract. This is ordered based off specific treatments related to chronic pain with the potential to abuse certain medications.
== END 2024-12-04 23:59 | disposition home or self-care (01) ==
PROVIDERS: PCP Internal Medicine; Visit Provider Nurse Practitioner Family
DX: M51.360 Other intervertebral disc degeneration, lumbar region with discogenic back pain only (principal); G57.93 Unspecified mononeuropathy of bilateral lower limbs
CPT/HCPCS: 99212; G0463

== ENCOUNTER 2025-01-16 14:52 | Outpatient (CLI) | payer MEDICAID, SELFPAY ==
--- OUTSIDE RECORDS SUMMARY | 2024-11-01 17:30 | XMS_ITS ---
Author Organization [facility] Address [address] [place] [address] Care Team Providers Care Manager Express Name Role Phone Vanessa Del Toro Primary [...] Active Encounters Encounter Location Date Provider Diagnosis [facility] [address] [place] [address] 11/01/2024 Provider Migration Major depressive disorder, recurrent, [...] Notes * Nahomy CALERODOB:1985 (39 yo F)Acc No.[id number]:11/01/2024 Patient: Nahomy Zelaya Provider: :1985 A ge:38 Y S ex:Female Date:11/01/2024 Address[address] [place] [id number] Pcp:Vanessa Del Toro Subjective: * Chief Complaints: [...] Electronic signature of Vi blanchard Migration on 01/16/2025 at 02:55 PM EDT Sign off status: Pending * Provider: Date: 0 11/01/2024 Generated for Randolph pineda/Yennifer/Bree on: 01/16/2025 02:55 PM EDT
--- OUTSIDE RECORDS SUMMARY | 2025-01-16 14:55 | XMS_ITS | Clinical Summary ---
Author Organization [facility] Address [address] [place] [address] Care Team Providers Care Vba Developer Name Role Phone Pcp, No Primary Care [...] - 10/22/2024 11:59 PM EDT Hospital Encounter [facility] Radiology [address], 1st [place] [address] Dyspnea on exertion; Mild persistent asthma without complication Discharge Disposition: Home or Self Care 10/22/2024 8:30 AM EDT Ancillary Procedure [facility] Medicine Specialties [address], [address] [place] [phone] Dyspnea on exertion 10/22/2024 8:00 AM EDT Office Visit [facility] Medicine Specialties [address], [address] [place] [address] Katie Katz PA Mild persistent asthma without complication (Primary Dx); Morbid obesity (CMS/HCC); Dyspnea on exertion; Encounter for preoperative pulmonary examination 10/22/2024 Results Follow-Up [facility] Medicine Specialties [address], [address] [place] [address] Katie Katz PA 10/22/2024 Travel from Last 3 Months Immunizations Immunization Administration Dates Next Due Hep A / Hep B 03/21/2010 Hep B, Adolescent or Pediatric 09/04/1997,1996,03/04/1997 Hep B, Adolescent/High Risk Infant 09/04/1997,,03/04/1997 MMR 03/04/1997 TD (adult), 2 Lf [...] Description 01/27/2025 11:00 AM EDT Ancillary Procedure [facility] Medicine Specialties [address], [address] [place] [address] 01/27/2025 12:30 PM EDT [facility] Visit [facility] Medicine Specialties [address], [address] [place] [address] Katie Katz PA [address] [place] [address] Health Maintenance Due Date Last Done Comments [facility]-Infant/Child/Adol SDOH Screenings 1985 [id number] Vaccine (#1) 1990 [facility]-Varicella Vaccines (1 of 2 - 13+ 2-dose series) 1998 [facility]- SDOH Screenings 12/05/2003 [facility]-Adult SDOH Screenings 12/05/2003 [facility]-Pneumococcal Vaccine: Pediatrics (0 to 5 Years) and At-Risk Patients (6 to 49 Years) (1 of 2 - PCV) 2004 [facility]-Pap Smear 08/02/2007 08/01/2004 HPV Vaccines (1 - 3-dose SCDM series) 2012 [facility]-Cervical Cancer Screening 12/05/2015 [facility]-HPV/Cotest 12/05/2015 08/01/2004 [facility]-Influenza Vaccine (#1) 2025 [facility]-Depression Screening 10/22/2025 10/22/2024, 09/26 [facility]-DTaP,Tdap,and Td Vaccines (4 - Td or Tdap) 11/19/2033 11/20/2023, 10/27/2021, 03/04/1997 [facility]-Zoster Vaccines (1 of 2) 12/05/2035 [facility]-Hepatitis A Vaccines Aged Out 03/21/2010 No longer eligible based on patient's age to complete this topic [facility]-Hepatitis B Vaccines Completed 010, 09/04/1997, 09/04/1997, Additional history exists [facility]-HIV Screening Completed 11/17/2021, 11/04/2021 [facility]-Hepatitis C Screening Completed 12/23/2021, 02/2022 [facility]-Obesity Intervention Completed 10/22/2024 [facility]-HIB Vaccines Aged [...] 10/23/19 8:58 AM EDT Dyspnea on exertion HEPATITIS C VIRUS (HCV) QUANTITATIVE PCR Routine 12/23/2021 11:25 AM EDT Chronic hepatitis C with hepatic coma (CMS/HCC) HIV 1/2 ANTIBODY/ANTIGEN SCREEN WITH REFLEX TO [...] signing this report, I, the attending physician, attlarryat I have personally reviewed the images/data for the aboveexamination(s) and agree with the final edited report. Drafted by Kiko Bowens MD on 10/22/2024 10:02 AM Final report signed by Maco Perez MD on 10/22/2024 10:14 AM Katie THOMPSON IMG XR PROCEDURES Final Resul t * (ABNORMAL) Pulmonary function testing (10/22/2024 8:58 AM EDT) [id number] 4.09 3.06 - 4.64 L VYAIRE PFT [id number] 3.86 3.06 - 4.64 L VYAIRE PFT [id number] 3.00 2.51 - 3.76 L VYAIRE PFT FEV1 PRE 2.42(A) 2.51 - 3.76 L VYAIRE PFT [id number] 73.29 71.42 - 91.53 % VYAIRE PFT FEV1/FVC PRE 62.63(A) 71.42 - 91.53 % VYAIRE PFT RQJ47-22%_POST 2.35 2.02 - 4.84 L/s VYAIRE PFT KLV07-75% PRE 1.42(A) 2.02 - 4.84 L/s VYAIRE PFT [id number] 5.58 5.38 - 8.91 L/s VYAIRE PFT PEF PRE 4.60(A) 5.38 - 8.91 L/s VYAIRE PFT Anatomical Region Laterality Modality PFT 10/22/2024 8:25 AM EDT Narrative 10/22/2024 9:08 AM EDT Pulmonary Function Testing Report Nahomy Calero 38 y.o. underwent pulmonary function testing today at the [facility]. The patient underwent spirometry testing. All tests were appropriately administered via ATS/ERS criteria. Spirometry: Reduced FEV1 with a normal FVC and reduced ratio consistent with mild obstruction. There is a significant positive bronchodilator response. Trend: There are no prior studies for comparison. Katie Katz PA PFT ORDERABLES Final Result * (ABNORMAL) Hepatitis C Virus (HCV) Quantitative PCR (12/23/2021 11:25 AM EDT) Hepatitis C Virus (HCV) Quantitative Interpretation Detected( A) Not Detected. 12/27/2021 12:09 AM EDT [facility] Hepatitis C Virus (HCV) Quantitative Viral Load Log Result 1.09 <1.08 log10 IU/mL 12/27/2021 12:09 AM EDT [facility] Hepatitis C Virus (HCV) Quantitative IU/mL Result 12 <12 IU/mL 12/27/2021 12:09 AM EDT [facility] Blood Venous blood specimen / Unknown Venipuncture / Unknown 12/23/2021 11:25 AM EDT 12/23/2021 11:[address] [facility] - 12/27/2021 12:09 AM EDT The Matthew M2000 HCV test is a Real Time in vitro nucleic acid amplification test for the quantitation of Hepatitis C Viral (HCV) RNA in human serum in HCV-infected individuals. It is intended for use as an aid in the management of HCV-infected individuals undergoing anti-viral therapy. The dynamic range for this test is log10 = 1.08 to 8.00 and/or 12 to 100,000,000 IU/mL. The limit of detection (LOD) for this assay is 12 IU/mL and the limit of quantitation (LOQ) is 12 IU/mL. This assay is FDA approved for clinical use. Masha Sharif BAND MAKER LAB BLOOD ORDERABLES Final Result [facility] [address] [place] [address] * HIV 1 & 2 Antibody/Antigen Screen (11/17/2021 1:00 PM EDT) Pathologist [facility] HIV 1 & 2 Antibody/Anti gen Screen Nonreactive Nonreactive 11/17/2021 8:22 PM EDT [facility] Blood Venous blood specimen / Unknown Venipuncture / Unknown 11/17/2021 1:00 PM EDT 11/17/2021 2:02 PM EDT Masha Sharif APRN LAB BLOOD ORDERABLES Final Result [facility] [address] [place] [address] * Cytology (08/01/2004 12:00 AM EST) 08/01/2004 08/03/2004 Narrative [facility] - 08/08/2004 9:09 AM EST [facility] MR #: [id number] [facility] [address] [place], [place] [address] 1985 (Age: 18) FW Collect Date: 08/01/2004 00:00 Receipt Date: 08/03/2004 00:00 Page 1 DEPARTMENT OF PATHOLOGY AND LABORATORY MEDICINE CYTOPATHOLOGY REPORT Email: [email or web address] [phone] ATTENDING MD/Practitioner: Alayna Garland MD Service: PAT Location: OUTS Reported: 08/08/2004 09:09 Collected: 08/01/2004 00:00 INTERPRETATION THIN PREP (CERVICAL/VAGINAL): NEGATIVE FOR INTRAEPITHELIAL LESION OR MALIGNANCY. SATISFACTORY FOR EVALUATION; ENDOCERVICAL/TRANSFORMATION ZONE COMPONENT ABSENT/INSUFFICIENT. Slide scanned and imaged by [employer] ThinPrep Imaging System with manual review of [...] results is suggested (please call Microbiology at [phone] for results). CLINICAL INFORMATION: Menstrual History: : First Trimester Date of Last Menstrual Period: 05/24/04 SPECIMEN DESCRIPTION: A: THIN PREP (CERVICAL/VAGINAL) THIN PREP PROCESS CELLULAR ENHANCEMENT ICD: V76.2 CERVIX, SPECIAL SCREENING FOR MALIGNANT NEOPLASM F: A; RT IMAGE [id number] SNOMED CODES: A; [id number] In cases where a pathologist has signed out the report, the service has been rendered in part by a resident. The signing pathologist has performed and is responsible for the reported pathologic evaluation. us Historical Provider LAB PATHOLOGY ORDERABLES Fin al Result [facility] from Last 3 Months or Most Recently Relevant to Health Maintenance Insurance [employer] Care Teams Vba Developer Relationship Specialty Start Date [place] [address] PCP - General Family Medicine 10/21/21
--- OUTSIDE RECORDS SUMMARY | 2025-01-16 14:55 | XMS_ITS | Encounter Summary ---
Author Organization Healthcare Address [address] [place] [address] Care Team Providers Care Yarn Bleaching Machine Operator Name Role Phone Pcp, No Primary Care Provider Megan Lockhart Unavailable Unavailable Aaliyah Corral LCSW Unavailable Unavailable Encounter Details Date Type Department Care Team (Late st Contact Info) Description 12/02/2021 Orders Only [facility] [address] [place] [phone] Aleyda De Souza Social History Tobacco Use [...] Description 01/27/2025 11:00 AM EDT Ancillary Procedure [facility] Medicine Specialties [address], [address] [place] [address] 01/27/2025 12:30 PM EDT Office Visit [facility] Medicine Specialties [address], [address] [place] [address] Katie Katz PA [address] [place] [address] documented as of this encounter Visit Diagnoses Not on filedocumented in this encounter Additional Health Concerns Infection Onset Date Last Indicated Resolved Time COVID-19 Rule-Out 12/26/2021 12/26/2021 12/26/2021 5:22 PM EDT Assessment Noted Time A fall risk assessment has been complete d for the patient 12/02/2021 9:04 AM EDT documented as of this encounter Care Teams Yarn Bleaching Machine Operator Relationship Specialty Start Date End Date Pcp, Naomie [address] [place] [address] PCP - General Family Medicine 10/21/21 Megan Finn Chute Boss Sales Promotion Representative 02/17/22 06/05/23 Aaliyah Corral, [place] [address] Chute Boss Sales Promotion Representative 11/04/21 04/02/24 documented as of this encounter
--- OUTSIDE RECORDS SUMMARY | 2025-01-16 14:55 | XMS_ITS | Encounter Summary ---
Author Organization Healthcare Address [address] [id number] Care Team Providers Care Laborer Mine Name Role Phone Pcp, No Primary Care Provider Megan Lockhart Unavailable Unavailable Aaliyah Corral LCSW Unavailable Unavailable Encounter Details Date Type Department Care Team (Late st Contact Info) Description 06/04/2023 Community [facility] Community Practice [address] [place] [address] Evita Garcia, [address] [place] [address] Abdominal pain, unspecified abdominal location (Primary Dx) [...] [facility]ties [address], [address] [place] [address] 01/27/2025 12:30 PM EDT [facility] Medicine Specialties [address], [address] [place] [address] Katie Katz PA [address] [place] [address] documented as of this encounter Visit Diagnoses Diagnosis Abdominal pain, unspecified abdominal location- Primary documented in this encounter Additional Health Concerns Assessment Noted Time A fall risk assessment has been complete d for the patient 12/02/2021 9:04 AM EDT documented as of this encounter Care Teams Laborer Mine Relationship Specialty Start Date End Date Pcp, No [address] [place] [address] PCP - General Family Medicine 10/21/21 Megan Finn Supply Chain Design Manager Development Architect 02/17/22 06/05/23 Aaliyah Corral, [place] [address] Supply Chain Design Manager Development Architect 11/04/21 04/02/24 documented as of this encounter
--- OUTSIDE RECORDS SUMMARY | 2025-01-16 14:55 | XMS_ITS | Encounter Summary ---
Author Organization Healthcare Address [address] [place] [address] Care Team Providers Care Merchandising Director Name Role Phone Pcp, No Primary Care Provider Megan Lockhart Unavailable Unavailable Aaliyah Corral LCSW Unavailable Unavailable Encounter Details Date Type Department Care Team (Late st Contact Info) Description 12/01/2021 Community [facility] Community Practice [address] [place] [address] Kerry Walker, CONCRETE PAVER [address] [facility] [place] [address] Colon cancer screening (Primary Dx); Generalized abdominal [...] Description 01/27/2025 11:00 AM EDT Ancillary Procedure [facility] Medicine Specialties [address], [address] [place] [address] 01/27/2025 12:30 PM EDT Office Visit [facility] Medicine Specialties [address], [address]nd [place] [address] Katie Katz PA [address] [place] [address] documented as of this encounter Visit Diagnoses Diagnosis Colon cancer screening- Primary Special screening for malignant neoplasms, colon Generalized abdominal pain Abdominal pain, generalized documented in this encounter Additional Health Concerns Infection Onset Date Last Indicated Resolved Time COVID-19 Rule-Out 12/26/2021 12/26/2021 12/26/2021 5:22 PM EDT documented as of this encounter Care Teams Merchandising Director Relationship Specialty Start Date End Date Pcp, Naomie [address] [place] [address] PCP - General Family Medicine 10/21/21 Megan Finn Cable Television Installer Tank Builder Supervisor 02/17/22 06/05/23 Aaliyah Corral, [place] [phone] Cable Television Installer Tank Builder Supervisor 11/04/21 04/02/24 documented as of this encounter
--- OUTSIDE RECORDS SUMMARY | 2025-01-16 14:56 | XMS_ITS | Patient Health Record ---
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 Problems Problem Type SNOMED Code ICD Code Onset Dates Problem Status W/U Status Risk Notes Problem Mild recurrent major depression (22943708) Major depressive disorder, recurrent, mild (F33.0) Active confirmed Encounters Encounter Location Date Provider Diagnosis [facility] [address] [place] [address] 11/01/2024 Provider Migration Major depressive disorder, recurrent, mild F33.0 Assessments Encounter Date Diagnosis (ICD Code) Assessment Notes Treatment Notes Treatment Clinical Notes Section Notes 11/01/2024 Major depressive disorder, recurrent, mild (ICD-10 - F33.0) Plan Of Treatment No Information Medical (General) History Surgical History Surgery Date(Month/Year)
--- OUTSIDE RECORDS SUMMARY | 2025-01-16 14:56 | XMS_ITS | Clinical Summary ---
Author Organization [facility] Address [address] [place] [address] Care Team Providers Care Inspector Canned Food Reconditioning Name Role Phone Provider, No Known Primary Care Provider Unavail able Allergies No known active allergies Medications * This document contains information received from the source organization and may not represent a complete record from that organization. naproxen (NAPROSYN) 500 MG tablet Take 1 tablet by mouth 2 (Two) Times a Day As Needed for Mild Pain. 20 tablet 08/08/2023 Active Active Problems Problem Noted Date Diagnosed Date Hepatitis C 11/09/2021 Overview (11/09/2021): appt 11/[address] [facility] Chronic low back pain 11/09/2021 Overview (11/09/2021): no steroids. 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 Not on file 01/2023 Does Anyone Keep You from Co ntacting Others or Doint Things Outside the Home? Not on file 03/05/2023 Physical Sign of Abuse Present Not on file 1 Housing Stability Answer Date Recorded Current Living Arrangements Not on file 01/2023 Potentially Unsafe Housing Conditions Not on edwina e 03/05/2023 Family and Community Support Answer Stanley e Recorded Help with Day-to-Day Activities Not on file 03/05/2023 Lonely or Isolated Not on file 03/05/2023 Employment Answer Date Recorded Do you want help finding or keeping work or a eloise b? Not on file 03/05/2023 Disabilities Answer Date Recorded Concentrating, Remembering, or Making Decisions Difficulty Not on file 03/05/2023 Doing Errands Independently Difficulty Not on fi le 03/05/2023 Education Answer Date Recorded Help with school or training? Not on file Preferred Language Not on file 03/05/2023 Comments Unknown Sex and Gender Information Value Date Recorded Sex Assigned at Not on file Legal Sex Female 4:38 PM EDT Gender Identity Not on file Sexual Orientation Not on file Last Filed Vital Signs Vital Sign Reading Time Taken Comments Blood Pressure 105/54 08/08/2023 2:11 PM EDT Pulse 62 08/08/2023 2:11 PM EDT Temperature 37.1 C (98.8 F) 08/08/2023 2:11 PM EDT Respiratory Rate 16 08/08/2023 2:11 PM EDT Oxygen Saturation 98% 08/08/2023 2:11 PM EDT Inhaled Oxygen Concentration - - Weight 109 kg (240 lb) 08/08/2023 2:11 PM EDT Height 165.1 cm (5' 5 ) 08/08/2023 2:11 PM EDT Body Mass Index 39.94 08/08/2023 2:11 PM EDT Plan of Treatment Health Maintenance Due Date Last Done Comments Annual Gynecologic Pelvic and Breast Exam 1985 ANNUAL PHYSICAL 11/09/2021 COVID-19 Vaccine ( season) 2024 INFLUENZA VACCINE 02/25/2025 TDAP/TD VACCINES (3 - Td or Tdap) 10/28/2031 10/27/2021, 03/04/1997 HEPATITIS C SCREENING Completed 11/17/2021 , 11/09/2021, 11/09/2021, Additional history exists Pneumococcal Vaccine 0-49 Aged Out No longer eligible based on patient's age to complete this topic Insurance [employer] Care Teams Inspector Canned Food Reconditioning Relationship Specialty Start Date End Date Provider, No Known [facility] [place] [address] PCP - General 11/11/21
--- OUTSIDE RECORDS SUMMARY | 2025-01-16 14:56 | XMS_ITS | Patient Health Record ---
Author Organization [facility] Address [address] [place] [address] [place] [address] Care Team Providers Care Head Strength And Conditioning Coach Name Role Phone LAMONT MALIN Primary Care Provider [phone] Lamont Malin MD Unavailable Unavailable Reason For Referral No Information Problems Problem Type SNOMED Code ICD Code Onset Dates Problem Status W/U Status Risk Notes Problem Chronic hepatitis C (544374470) Chronic viral hepatitis C (B18.2) Active confirmed Problem Hepatitis B carrier (663532461) Hepatitis B carrier (B18.1) Active confirmed Problem Substance abuse (7901738017) Substance abuse (F19.10) Active confirmed Plan Of Treatment No Information Insurance Providers Payer Name Payer Address Payer Phone Subscriber Number Group Number Insured Name Patient Relationship to Insured Coverage Start Date Coverage End Date [facility] MEDICAID-R [place] [address] [address] [place] [address] [id number] Nahomy Kim Self - patient is the insured Medical (General) History Surgical History Surgery Date(Month/Year) [place] 2003 Hospitalization History Reason Date(Month/Year) [facility] had babay 2010
== END 2025-01-16 23:59 | disposition home or self-care (01) ==
LOC: LAB 14:53
PROVIDERS: PCP Internal Medicine; Visit Provider Obstetrics & Gynecology
DX: Z34.90 Encounter for supervision of normal pregnancy, unspecified, unspecified trimester (principal)
CPT/HCPCS: 36415; 84144; 84702

== ENCOUNTER 2025-02-12 11:38 | Emergency (ER) | payer MEDICAID, SELFPAY ==
--- OUTSIDE RECORDS SUMMARY | 2024-11-01 17:30 | XMS_ITS ---
Author Organization [facility] Address [address] [place] [address] Care Team Providers Care Bankruptcy Assistant Name Role Phone Vanessa Del Toro Primary Care Provider [phone] Migration, Provider Unavailable Unavailable REASON FOR VISIT Multum To Medispan Conversion Encounter Medications Medication SIG (Take, Route, Frequency, Duration) Notes Start Date End Date Status metroNIDAZOLE 500 MG Tablet 1 tab(s) ora lly 2 times a day; Duration: 7 day(s) 08/26/2020 Active Escitalopram Oxalate 10 MG Tablet 1 tab(s) orally once a day; Duration: 30 day(s) 09/03/2020 Active Encounters Encounter Location Date Provider Diagnosis [facility] [address] [place] [address] 11/01/2024 Provider Migration Major depressive disorder, recurrent, mild F33.0 Assessments Encounter Date Diagnosis (ICD Code) Assessment Notes Treatment Notes Treatment Clinical Notes Section Notes 11/01/2024 Major depressive disorder, recurrent, mild (ICD-10 - F33.0) Plan Of Treatment Medication Medication Name Sig Start Date Stop Date Notes Escitalopram Oxalate 10 MG Tablet 1 tab(s) orally once a day; Duration: 30 day(s) 09/03/2020 Progress Notes * Nahomy CALERODOB:1985 (39 yo F)Acc No.[id number]:11/01/2024 Patient: Nahomy Zelaya Provider: :1985 A ge:38 Y S ex:Female Date:11/01/2024 Address[address] [id number] Pcp:Vanessa Del Toro Subjective: * Chief Complaints: * M ultum To Medispan Conversion Encounter * Medications: T akingmetroNIDAZOLE 500 MG Tablet 1 tab(s) orally 2 times a day Taking metroNIDAZOLE 500 MG Tablet 1 tab(s) orally 2 times a day Assessment: * Assessment: 1. M melody depressive disorder, recurrent, mild - F33.0 (Primary) Plan: * Treatment: * Electronic signature of Vi blanchard Migration on 02/12/2025 at 01:47 PM EDT Sign off status: Pending * Provider: Date: 11/01/2024 Generated for Randolph pineda/Yennifer/Bree on: 0 02/12/2025 01:47 PM EDT
--- NOTE | 2025-02-12 13:05 | PC.NURSE ---
Attempted to pull the pt back to triage. She is not in the lobby at this time.
--- NOTE | 2025-02-12 13:39 | PC.NURSE ---
Looked for pt in the lobby to bring her back to triage. I am unable to find her. Registration states they have not see her.
[2025-02-12 13:40] VITALS: BP 0/0; PULSE 0; RESP 0; TEMP -17.7; TEMP 0; O2SAT 0
--- OUTSIDE RECORDS SUMMARY | 2025-02-12 13:47 | XMS_ITS | Encounter Summary ---
Author Organization Healthcare Address [address] [place] [address] Care Team Providers Care Correction Officer Penitentiary Name Role Phone Pcp, No Primary Care Provider Megan Lockhart Unavailable Unavailable Aaliyah Corral LCSW Unavailable Unavailable Encounter Details Date Type Department Care Team (Late st Contact Info) Description 12/01/2021 Community [facility] Community Practice [address] [place] [address] Kerry Walker, DIGITAL CARTOGRAPHIC TECHNICIAN [address] [facility] [place] [address] Colon cancer screening (Primary Dx); Generalized abdominal [...] as of this encounter Plan of Treatment Not on file documented as of this encounter Visit Diagnoses Diagnosis Colon cancer screening- Primary Special screening for malignant neoplasms, colon Generalized abdominal pain Abdominal pain, generalized documented in this encounter Additional Health Concerns Infection Onset Date Last Indicated Resolved Time COVID-19 Rule-Out 12/26/2021 12/26/2021 12/26/2021 5:22 PM EDT documented as of this encounter Care Teams Correction Officer Penitentiary Relationship Specialty Start Date End Date Pcp, No [address] [place] [address] PCP - General Family Medicine 10/21/21 Megan Finn Chemist Water Purification Male Impersonator 02/17/22 06/05/23 Aaliyah Corral, [place] [address] Chemist Water Purification Male Impersonator 11/04/21 04/02/24 documented as of this encounter
--- OUTSIDE RECORDS SUMMARY | 2025-02-12 13:47 | XMS_ITS | Clinical Summary ---
Author Organization [facility] Address [address] [place] [address] Care Team Providers Care Overedge Machine Operator Name Role Phone Pcp, No [...] S/P laparoscopic cholecystectomy 05/28/2003 Overview (10/22/2024): gallstones Immunizations Immunization Administration Dates Next Due Hep [...] 10/22/2024 8:01 AM EDT Plan of Treatment Health Maintenance Due Date Last Done Comments [facility]Y-/Child/Adol SDOH Screenings 1985 [id number] Vaccine (#1) 1990 UKY-Varicella Vaccines (1 of [...] Procedure Name Priority Date/Time Associated Diagnosis Comments HEPATITIS C VIRUS (HCV) QUANTITATIVE PCR Routine 12/23/2021 11:25 AM EDT Chronic hepatitis C with hepatic coma (CMS/HCC) HIV 1/2 ANTIBODY/ANTIGEN SCREEN WITH REFLEX TO HIV I/II DIFFERENTIATION Routine 11/17/2021 1:00 PM EDT Chronic hepatitis C without hepatic coma (CMS/HCC) CYTO DATA CONVERSION Routine 08/01/2004 12:00 AM EST from Last 3 Months or Most Recently Relevant to Health Maintenance Results * (ABNORMAL) Hepatitis C Virus (HCV) Quantitative PCR (12/23/2021 11:25 AM EDT) Hepatitis C Virus (HCV) Quantitative Interpretation Detected( A) Not Detected. 12/27/2021 12:09 AM EDT [facility] Hepatitis C Virus (HCV) Quantitative Viral Load Log Result 1.09 <1.08 log10 IU/mL 12/27/2021 12:09 AM EDT [facility] Hepatitis C Virus (HCV) Quantitative IU/mL Result 12 <12 IU/mL 12/27/2021 12:09 AM EDT [facility] Blood Venous blood specimen / Unknown Venipuncture / Unknown 12/23/2021 11:25 AM EDT 12/23/2021 11:25 AM EDT [facility] - 12/27/2021 12:09 AM EDT [...] FDA approved for clinical use. Masha Sharif CUTTER TENDER LAB BLOOD ORDERABLES Final Result Performing Organization Address City/[facility]/ZIP Co de Phone Number [facility] [address] [place] [address] * HIV 1 & 2 Antibody/Antigen Screen (11/17/2021 1:00 PM EDT) HIV 1 & 2 Antibody/Anti gen Screen Nonreactive Nonreactive 11/17/2021 8:22 PM EDT [facility] Blood Venous blood specimen / Unknown Venipuncture / Unknown 11/17/2021 1:00 PM EDT 11/17/2021 2:02 PM EDT Masha Salesmons CUTTER TENDER LAB BLOOD ORDERABLES Final Result Performing Organization Address City/[facility] Co de Phone Number [facility] [address] [place] [address] * Cytology (08/01/2004 12:00 AM EST) 08/01/2004 08/03/2004 Narrative SUNQUEST - 08/08/2004 9:09 AM EST [facility] MR #: [id number] [facility] NA[address]OM[address] [place] [id number] 1985 (Age: 18) FW Collect Date: 08/01/2004 00:00 Receipt Date: 08/03/2004 00:00 Page 1 DEPARTMENT OF PATHOLOGY AND LABORATORY MEDICINE CYTOPATHOLOGY REPORT Email: [email or web address] ATTENDING MD/Practitioner: Alayna Garland MD Service: PAT Location: OUTS Reported: 08/08/2004 09:09 Collected: 08/01/2004 00:00 INTERPRETATION THIN PREP (CERVICAL/VAGINAL): NEGATIVE FOR INTRAEPITHELIAL LESION OR MALIGNANCY. SATISFACTORY FOR EVALUATION; ENDOCERVICAL/TRANSFORMATION ZONE COMPONENT ABSENT/INSUFFICIENT. Slide scanned and imaged by [employer] ThinPrep Imaging System with manual review of [...] results is suggested (please call Microbiology at [phone] for results). CLINICAL INFORMATION: Menstrual History: : First Trimester Date of Last Menstrual Period: 05/24/04 SPECIMEN DESCRIPTION: A: THIN PREP (CERVICAL/VAGINAL) THIN PREP PROCESS CELLULAR ENHANCEMENT ICD: V76.2 CERVIX, SPECIAL SCREENING FOR MALIGNANT NEOPLASM F: A; RT IMAGE [id number] SNOMED CODES: A; A6I022 [id number] [id number] [id number] [id number] In cases where a pathologist has signed out the report, the service has been rendered in part by a resident. The signing pathologist has performed and is responsible for the reported pathologic evaluation. Historical Provider LAB PATHOLOGY ORDERABLES Fin al Result SUNQUEST from Last 3 Months or Most Recently Relevant to Health Maintenance Insurance [id number] [place] [id number] [employer] Care Teams Overedge Machine Operator Relationship Specialty Start Date End Date Rashi, [place] [address] PCP - General Family Medicine 10/21/21
--- OUTSIDE RECORDS SUMMARY | 2025-02-12 13:47 | XMS_ITS | Clinical Summary ---
Author Organization [facility] Address [address] [place] [address] Care Team Providers Care Sign Hanger Supervisor Name Role Phone Provider, No Known Primary [...] C 11/09/2021 Overview (11/09/2021): appt 11/16 at [facility] Chronic low back pain 11/09/2021 Overview (11/09/2021): [...] and Breast Exam 1985 ANNUAL PHYSICAL 11/09/2021 INFLUENZA VACCINE 12/26/2024 TDAP/TD VACCINES (3 - Td or Tdap) 10/28/2031 10/27/2021, 03/04/1997 HEPATITIS C SCREENING Completed 11/17/2021 , 11/09/2021, 11/09/2021, Additional history exists Pneumococcal Vaccine 0-49 Aged Out No longer eligible based on patient's age to complete this topic Insurance [employer] Care Teams Sign Hanger Supervisor Relationship Specialty Start Date End Date Provider, [place] [address] PCP - General 11/11/21
--- OUTSIDE RECORDS SUMMARY | 2025-02-12 13:47 | XMS_ITS | Encounter Summary ---
Author Organization Healthcare Address [address] [place] [address] Care Team Providers Care Cardiovascular Or Nurse Name Role Phone Pcp, No Primary Care Provider Megan Lockhart Unavailable Unavailable Aaliyah Corral LCSW Unavailable Unavailable Encounter Details Date Type Department Care Team (Late st Contact Info) Description 12/02/2021 Orders Only [facility] [address] [place] [id number] Aleyda De Souza Social History Tobacco Use [...] 12/02/2021 9:04 AM EDT Gladys Gonzalez RN Patient Health Questionnaire -2 Score 0 [...] documented as of this encounter Care Teams Cardiovascular Or Nurse Relationship Specialty Start Date End Date Pcp, No [address] [place] [address] PCP - General Family Medicine 10/21/21 Megan Finn Sheet Rock Hanger Policyholder Information Clerk 02/17/22 06/05/23 Aaliyah Corral, [place] [address] Sheet Rock Hanger Policyholder Information Clerk 11/04/21 04/02/24 documented as of this encounter
--- OUTSIDE RECORDS SUMMARY | 2025-02-12 13:47 | XMS_ITS | Encounter Summary ---
Author Organization Healthcare Address [address] [id number] Care Team Providers Care Manager File Name Role Phone Pcp, No Primary Care Provider Megan Lockhart Unavailable Unavailable Aaliyah Corral LCSW Unavailable Unavailable Encounter Details Date Type Department Care Team (Late st Contact Info) Description 06/04/2023 Community [place] [facility] [address] [place] [address] Evita Garcia, [address] [place] [address] Abdominal pain, unspecified abdominal location (Primary Dx) [...] C, RN 6. Suicidal Behavior (Lifetime) No 4 12:00 PM EST Huy Jorge, RN documented as of this encounter Plan of Treatment Not on file documented as of this encounter Visit Diagnoses Diagnosis Abdominal pain, unspecified abdominal location- Primary documented in this encounter Additional Health Concerns Assessment Noted Time A fall risk assessment has been complete d for the patient 12/02/2021 9:04 AM EDT documented as of this encounter Care Teams Manager File Relationship Specialty Start Date End Date Pcp, No [address] [place] [address] PCP - General Family Medicine 10/21/21 Megan Finn User Support Specialist Security Associate 02/17/22 06/05/23 Aaliyah Corral, [place] [address] User Support Specialist Security Associate 11/04/21 04/02/24 documented as of this encounter
--- OUTSIDE RECORDS SUMMARY | 2025-02-12 13:47 | XMS_ITS | Patient Health Record ---
Author Organization [facility] Address [address] [place] [address] Care Team Providers Care Forensic Investigator Name Role Phone Vanessa Del Toro Primary [...] Risk Notes Problem Mild recurrent major depression (55884298) Major depressive disorder, recurrent, mild (F33.0) Active confirmed Encounters Encounter Location Date Provider Diagnosis [facility] [place] [address] [place] [address] 11/01/2024 Provider Migration Major depressive disorder, recurrent, mild F33.0 Assessments Encounter Date Diagnosis (ICD Code) Assessment Notes Treatment Notes Treatment Clinical Notes Section Notes 11/01/2024 Major depressive disorder, recurrent, mild (ICD-10 - F33.0) Plan Of Treatment No Information Medical (General) History Surgical History Surgery Date(Month/Year)
--- OUTSIDE RECORDS SUMMARY | 2025-02-12 13:47 | XMS_ITS | Patient Health Record ---
Author Organization [facility] Address [address] [place] [address] [place] [address] Care Team Providers Care Collective Bargaining Specialist Name Role Phone LAMONT MALIN Primary Care Provider Lamont Malin MD Unavailable Unavailable Reason For Referral No Information Problems Problem Type SNOMED Code ICD Code Onset Dates Problem Status W/U Status Risk Notes Problem Chronic hepatitis C (947566765) Chronic viral hepatitis C (B18.2) Active confirmed Problem Hepatitis B carrier (110796719) Hepatitis B carrier (B18.1) Active confirmed Problem Substance abuse (9134594635) Substance abuse (F19.10) Active confirmed Plan Of Treatment No Information Insurance Providers Payer Name Payer Address Payer Phone Subscriber Number Group Number Insured Name Patient Relationship to Insured Coverage Start Date Coverage End Date [facility] MEDICAID-R URAL [address] [address] [place] [address] [id number] Nahomy Kim Self - patient is the insured Medical (General) History Surgical History Surgery Date(Month/Year) [place] 2003 Hospitalization History Reason Date(Month/Year) [facility] had babay 2010
== END 2025-02-12 13:40 | disposition left against medical advice (07) ==
PROVIDERS: Emergency Provider Emergency Medicine; PCP Internal Medicine
DX: Z53.21 Procedure and treatment not carried out due to patient leaving prior to being seen by health care provider (principal)
CPT/HCPCS: 99211

== ENCOUNTER 2025-02-14 21:24 | Emergency (ER) | payer MEDICAID, SELFPAY ==
--- OUTSIDE RECORDS SUMMARY | 2024-11-01 17:30 | XMS_ITS ---
Author Organization [facility] Address [address] [place] [address] Care Team Providers Care Banking Manager Name Role Phone Vanessa Del Toro Primary Care Provider Migration, Provider Unavailable Unavailable REASON FOR VISIT [...] Active Encounters Encounter Location Date Provider Diagnosis [facility] [address] [place] [address] 11/01/2024 Provider Migration Major depressive disorder, recurrent, [...] Notes * Nahomy CALERODOB:1985 (39 yo F)Acc No.[id number]:11/01/2024 Patient: Nahomy Zelaya Provider: :1985 A ge:38 Y S ex:Female Date:11/01/2024 Address[address] [id number] Pcp:Vanessa Del Toro Subjective: * Chief Complaints: * M ultum To Medispan Conversion Encounter * Medications: T akingmetroNIDAZOLE 500 MG Tablet 1 tab(s) orally 2 times a day Taking metroNIDAZOLE 500 MG Tablet 1 tab(s) orally 2 times a day Assessment: * Assessment: 1. M melody depressive disorder, recurrent, mild - F33.0 (Primary) Plan: * Treatment: * Electronic signature of Prov shreer Migration on 02/14/2025 at 09:30 PM EDT Sign off status: Pending * Provider: Date: 0 11/01/2024 Generated for Randolph pineda/Yennifer/Bree on: 0 02/14/2025 09:30 PM EDT
--- OUTSIDE RECORDS SUMMARY | 2025-02-14 21:30 | XMS_ITS | Encounter Summary ---
Author Organization Healthcare Address [address] [place] [address] Care Team Providers Care Outside Energy Sales Representatives Name Role Phone Pcp, No Primary Care Provider Megan Lockhart Unavailable Unavailable Aaliyah Corral LCSW Unavailable Unavailable Encounter Details Date Type Department Care Team (Late st Contact Info) Description 12/01/2021 Community [facility] Community Practice [address] [place] [address] Kerry Walker, HIDE INSPECTOR AND SORTER [address] [facility] [place] [address] Colon cancer screening (Primary Dx); Generalized abdominal [...] documented as of this encounter Care Teams Outside Energy Sales Representatives Relationship Specialty Start Date End Date Pcp, No [address] [place] [address] PCP - General Family Medicine 10/21/21 Megan Finn Courtesy Van Driver Scallop Binder 02/17/22 06/05/23 Aaliyah Corral, [place] [address] Courtesy Van Driver Scallop Binder 11/04/21 04/02/24 documented as of this encounter
--- OUTSIDE RECORDS SUMMARY | 2025-02-14 21:30 | XMS_ITS | Encounter Summary ---
Author Organization Healthcare Address [address] [id number] Care Team Providers Care Sterilizer Operator Name Role Phone Pcp, No Primary Care Provider Megan Lockhart Unavailable Unavailable Aaliyah Corral LCSW Unavailable Unavailable Encounter Details Date Type Department Care Team (Late st Contact Info) Description 06/04/2023 Community [facility] Community Practice [address] [place] [address] Evita Garcia, [address] [place] [address] Abdominal pain, unspecified abdominal location (Primary Dx) [...] documented as of this encounter Care Teams Sterilizer Operator Relationship Specialty Start Date End Date Pcp, No [address] [place] [address] PCP - General Family Medicine 10/21/21 Megan Finn Pediatric Cardiologist Escrow Processor 02/17/22 06/05/23 Aaliyah Corral, [place] [address] Pediatric Cardiologist Escrow Processor 11/04/21 04/02/24 documented as of this encounter
--- OUTSIDE RECORDS SUMMARY | 2025-02-14 21:30 | XMS_ITS | Encounter Summary ---
Author Organization Healthcare Address [address] [place] [address] Care Team Providers Care Paper Finisher Name Role Phone Pcp, No Primary Care Provider Megan Lockhart Unavailable Unavailable Aaliyah Corral LCSW Unavailable Unavailable Encounter Details Date Type Department Care Team (Late st Contact Info) Description 12/02/2021 Orders Only [facility] [address] [place] [phone] Aleyda De Souza Social History Tobacco Use [...] documented as of this encounter Care Teams Paper Finisher Relationship Specialty Start Date End Date Pcp, No [address] [place] [address] PCP - General Family Medicine 10/21/21 Megan Finn Wrapping Machine Tender Logistics Lead 02/17/22 06/05/23 Aaliyah Corral, [place] [address] Wrapping Machine Tender Logistics Lead 11/04/21 04/02/24 documented as of this encounter
--- OUTSIDE RECORDS SUMMARY | 2025-02-14 21:30 | XMS_ITS | Clinical Summary ---
Author Organization [facility] Address [address] [place] [address] Care Team Providers Care Credit Specialist Name Role Phone Pcp, No Primary Care [...] Last Done Comments [facility]-/Child/Adol SDOH Screenings 1985 [id number] Vaccine (#1) 1990 [facility]Y-Varicella Vaccines (1 of [...] A) Not Detected. 12/27/2021 12:09 AM EDT [facility] Hepatitis C Virus (HCV) Quantitative Viral Load Log Result 1.09 <1.08 log10 IU/mL 12/27/2021 12:09 AM EDT [facility] Hepatitis C Virus (HCV) Quantitative IU/mL Result 12 <12 IU/mL 12/27/2021 12:09 AM EDT [facility] Blood Venous blood specimen / Unknown Venipuncture / Unknown 12/23/2021 11:25 AM EDT 12/23/2021 11:25 AM EDT [facility] - 12/27/2021 12:09 AM [...] FDA approved for clinical use. Masha Sharif HEEL BRUSHER LAB BLOOD ORDERABLES Final Result Performing Organization Address City/[facility]/ZIP Co de Phone Number [facility] [address] [place] [address] * HIV 1 & 2 Antibody/Antigen Screen (11/17/2021 1:00 PM EDT) HIV 1 & 2 Antibody/Anti gen Screen Nonreactive Nonreactive 11/17/2021 8:[address] [facility] Blood Venous blood specimen / Unknown Venipuncture / Unknown 11/17/2021 1:00 PM EDT 11/17/2021 2:02 PM EDT Masha Salesmons HEEL BRUSHER LAB BLOOD ORDERABLES Final Result Performing Organization Address City/[facility] Co de Phone Number [facility] [address] [place] [address] * Cytology (08/01/2004 12:00 AM EST) 08/01/2004 08/03/2004 Narrative SUNQUEST - 08/08/2004 9:09 AM EST [facility] MR #: [id number] [facility] [address] [place] [id number] 1985 (Age: 18) FW Collect Date: 08/01/2004 00:00 Receipt Date: 08/03/2004 00:00 Page 1 DEPARTMENT OF PATHOLOGY AND LABORATORY MEDICINE CYTOPATHOLOGY REPORT Email: [email or web address] ATTENDING MD/Practitioner: Alayna Garland MD Service: PAT Location: OUTS Reported: 08/08/2004 09:09 Collected: 08/01/2004 00:00 INTERPRETATION THIN PREP (CERVICAL/VAGINAL): NEGATIVE FOR INTRAEPITHELIAL LESION OR MALIGNANCY. SATISFACTORY FOR EVALUATION; ENDOCERVICAL/TRANSFORMATION ZONE COMPONENT ABSENT/INSUFFICIENT. Slide scanned and imaged by [employer] ThinPrep Imaging System with manual review of [...] results is suggested (please call Microbiology at [phone] for results). CLINICAL INFORMATION: Menstrual History: : First Trimester Date of Last Menstrual Period: 05/24/04 SPECIMEN DESCRIPTION: A: THIN PREP (CERVICAL/VAGINAL) THIN PREP PROCESS CELLULAR ENHANCEMENT ICD: V76.2 CERVIX, SPECIAL SCREENING FOR MALIGNANT NEOPLASM F: A; RT IMAGE [id number] SNOMED CODES: A; [id number] [id number] [id number] [id number] [id number] In cases where a pathologist has signed out the report, the service has been rendered in part by a resident. The signing pathologist has performed and is responsible for the reported pathologic evaluation. Historical Provider LAB PATHOLOGY ORDERABLES Fin al Result SUNQUEST from Last 3 Months or Most Recently Relevant to Health Maintenance Insurance [id number] [place] [id number] [employer] Care Teams Credit Specialist Relationship Specialty Start Date End Date Rashi, [place] [address] PCP - General Family Medicine 10/21/21
--- OUTSIDE RECORDS SUMMARY | 2025-02-14 21:30 | XMS_ITS | Patient Health Record ---
Author Organization [facility] Address [address] [place] [address] Care Team Providers Care Power Supply Engineer Name Role Phone Vanessa Del Toro Primary [...] Social Info Options Details Social History Occupation senior living inmate Problems Problem Type SNOMED Code ICD Code Onset Dates Problem Status W/U Status Risk Notes Problem Mild recurrent major depression (02329642) Major depressive disorder, recurrent, mild (F33.0) Active confirmed Encounters Encounter Location Date Provider Diagnosis [facility] [address] [place] [address] 11/01/2024 Provider Migration Major depressive disorder, recurrent, mild F33.0 Assessments Encounter Date Diagnosis (ICD Code) Assessment Notes Treatment Notes Treatment Clinical Notes Section Notes 11/01/2024 Major depressive disorder, recurrent, mild (ICD-10 - F33.0) Plan Of Treatment No Information Medical (General) History Surgical History Surgery Date(Month/Year)
--- OUTSIDE RECORDS SUMMARY | 2025-02-14 21:31 | XMS_ITS | Patient Health Record ---
Author Organization [facility] Address [address] [place] [address] [place] [address] Care Team Providers Care Cat Tender Name Role Phone LAMONT MALIN Primary Care Provider Lamont Malin MD Unavailable Unavailable Reason For Referral No Information Problems Problem Type SNOMED Code ICD Code Onset Dates Problem Status W/U Status Risk Notes Problem Chronic hepatitis C (742758137) Chronic viral hepatitis C (B18.2) Active confirmed Problem Hepatitis B carrier (556841756) Hepatitis B carrier (B18.1) Active confirmed Problem Substance abuse (7559374967) Substance abuse (F19.10) Active confirmed Plan Of Treatment No Information Insurance Providers Payer Name Payer Address Payer Phone Subscriber Number Group Number Insured Name Patient Relationship to Insured Coverage Start Date Coverage End Date [facility] MEDICAID-R URAL [address] [address] [place] [address] [phone] [id number] Nahomy Kim Self - patient is the insured Medical (General) History Surgical History Surgery Date(Month/Year) [place] 2003 Hospitalization History Reason Date(Month/Year) [facility] had babay 2010
--- OUTSIDE RECORDS SUMMARY | 2025-02-14 21:31 | XMS_ITS | Clinical Summary ---
Author Organization [facility] Address [address] [place] [address] Care Team Providers Care Clay Temperer Name Role Phone Provider, No Known Primary [...] C 11/09/2021 Overview (11/09/2021): appt 11/[facility] at [facility] Chronic low back pain 11/09/2021 Overview (11/09/2021): [...] this topic Insurance [employer] Care Teams Clay Temperer Relationship Specialty Start Date End Date Provider, [place] [address] PCP - General 11/11/21
[2025-02-14 21:32] VITALS: BP 145/66; PULSE 62; RESP 16; TEMP 36.9; O2SAT 100; BMI 32.4
--- NOTE | 2025-02-14 21:38 | PC.NURSE ---
Patient refuses IV
--- NOTE | 2025-02-14 21:42 | ED_ITS ---
<Statement entered by Fareed Sorto MD - 02/14/25 22:58> I was consulted by the JOSE M, and we discussed the complexity of the problems being addressed. I approve the treatment and management plan for this patient's care in the emergency department, thus performing a substantive portion of the medical decision making. Fareed Sorto MD Discharge Plan Disposition Patient Disposition: Home, Self-Care Prescriptions Prescriptions: No Action omeprazole 20 mg capsule,delayed release(DR/EC) 20 mg PO DAILY Patient Comments: TAKE 1 CAPSULE BY MOUTH ONCE DAILY prochlorperazine maleate [Compazine] 5 mg tablet 10 mg PO BID PRN (Reason: nausea and vomiting) Qty: 60 2RF Vyleesi 1.75 mg/0.3 mL auto-injector 1.75 mg SQ ONCE Qty: 1.2 0RF buprenorphine-naloxone 2-0.5 mg tablet, sublingual 2 tab sublingual DAILY sennosides [Natural Senna Laxative] 8.6 mg tablet 8.6 mg PO DAILY PRN (Reason: constipation) Qty: 30 3RF Movantik 25 mg tablet 25 mg PO DAILY Qty: 30 0RF Rx Instructions: must be taken on empty stomach; no food 1 hr after or 2-3 hrs before dose cyanocobalamin (vitamin B-12) 1,000 mcg/mL solution 1,000 mcg IM QWEEK Patient Comments: INJECT 1 ML SUBCUTANEOUSLY ONCE A WEEK FOR 6 WEEKS baclofen 5 mg tablet 5 mg PO TID Qty: 90 2RF gabapentin 100 mg capsule 100 mg PO QID Qty: 120 2RF Referrals Follow up/Referrals: Dyllan Abreu DO [Primary Care Provider, Family Practice] - See instructions Clinical Impressions Clinical Impression: Hypokalemia Instructions Patient Instructions: DI for Nausea -- Child Print Language Print Language: Latvian Discharge ED Provider: Fareed Sorto General Adult HPI General Chief complaint: Nausea/Vomiting/Diarrhea Stated complaint: Unable to hold down food; Weightloss surgery November Time Seen by Provider: 02/14/25 21:28 Mode of Arrival: Ambulatory Source of Information: Patient Description of Symptoms (Recalled from ER Triage Doc. by RN): Patient had weight loss sx on November 25; has been unable to keep anything down since then History of Present Illness HPI narrative: Nahomy Rangel is a 39-year-old female past medical history significant for neuropathy, obesity, substance abuse who presents emergency room tonight with complaints of poor p.o. intake and unable to keep anything down since her weight loss surgery. Patient had gastric sleeve done by Dr. Marc Puckett in [place] on November 25. States that since then, she has been unable to consistently eat or drink anything. Patient states that it feels like the food gets stuck in her esophagus kind of behind her sternum. Reports that she is only able to eat a couple bites of food once or twice a day. States she is unable to drink any water because it bond . Is able to drink sweet tea during the day. Is on Suboxone for history of opioid abuse. Does take omeprazole for GERD symptoms. Is not on any blood thinners. Did try to follow-up with her bariatric surgeon, call the office on Sunday and they stated that she should go to the emergency room if she felt like she needed to be seen. She has not return to their clinic for an appointment. Does tell me that they discussed putting a feeding tube in her if she was unable to take any p.o. intake. Please note that the above description of symptoms, and this electronic medical record under categorization of recalled from ER triage doctor by RN are reflective of an initial nursing assessment, however, is not reflective of my full history and physical exam that was personally taken and clarified. Consequentially, this proceeding description of symptoms, which may include the patient's cauterized chief complaint in the EMR, do not reflect my personal clinical impression, and the ultimate description of the history of present illness stated complaints should be deferred to this section of this note. Unless stated otherwise were congruent with the section of the note, additional signs, symptoms, or incongruence can be interpreted as in or accurate with my clinical impression. Related Data Home Medications ?Medication ?Instructions ?Recorded ?Confirmed buprenorphine 2 mg-naloxone 0.5 mg 2 tab sublingual DA YO 07/17/24 02/10/25 sublingual tablet cyanocobalamin (vitamin B-12) 1,000 mcg IM QWEEK 11/0602/10/25 1,000 mcg/mL injection solution omeprazole 20 mg capsule,delayed 20 mg PO DAILY 02/10/25 release Previous Rx's ?Medication ?Instructions ?Recorded naloxegol 25 mg tablet (Movantik) 25 mg PO DAILY #30 t abs 10/29/24 sennosides 8.6 mg tablet (Natural 8.6 mg PO DAILY PRN constipation 10/29/24 Senna Laxative) #30 tabs baclofen 5 mg tablet 5 mg PO TID #90 tabs 5 gabapentin 100 mg capsule 100 mg PO QID #120 caps 11/25 prochlorperazine maleate 5 mg 10 mg (2 x 5 mg) PO BID PRN nausea 02/10/25 tablet (Compazine) and vomiting #60 tabs bremelanotide 1.75 mg/0.3 mL 1.75 mg (0.3 mL) SQ ONCE #1.2 mL 02/12/25 subcutaneous auto-injector (Vyleesi) Allergies Allergy/AdvReac Type Severity Reaction Status Date / Time No Known Allergies Allergy Verified 02/10/25 14:46 [facility] Disclaimer: The information contained in this section may have been updated after the patient was seen, as this information can be updated by other users. Medical History Dog bite of right hand BMI 34.0-34.9,adult BMI 37.0-37.9, adult Neck pain Cervical radiculopathy Sciatica associated with disorder of lumbar spine Surgical History History of delivery Hx of cholecystectomy History of tubal ligation Family History Other No significant family history Social History Smoking Status: Never smoker alcohol intake: former substance use type: crack/cocaine current occupational status: other Travel in the last 8 weeks?: None household members: significant other housing: other marital status: single Have you lived/traveled outside US in past 30 days?: No Contact w/someone who lives/traveled outside US past 30 days?: No Exposure to someone with infectious disease in past 14 days?: No Do you have a fever (greater than 100.4 F or 38 C)?: No Have you tested positive for COVID-19?: No Exposed to someone with COVID-19 in past 14 days?: No Do you have a sore throat?: No Do you have a cough?: No Do you have any weakness?: No Do you have any diarrhea?: No Are you experiencing any unusual bleeding?: No Do you have any muscle aches/pain?: No Do you have any abdominal pain?: No Are you experiencing loss of taste or smell?: No Other Medical History Have you received the Flu Vaccine for this season: No Have you received the Pneumonia Vaccine: No ROS Obtained: Yes All systems reviewed & no additional complaints except as documented Physical Exam General General appearance: alert and in no apparent distress Head Head exam: atraumatic, normocephalic and normal inspection Eye Eye exam: Present normal appearance, PERRL and EOMI ENT ENT exam: Present normal exam, normal oropharynx, mucous membranes moist, TM's normal bilaterally and normal external ear exam Neck Neck exam: Present normal inspection, full ROM and trachea midline; Absent meningismus or lymphadenopathy Chest Chest inspection: Present normal inspection and symmetric chest wall rise; Absent tenderness Respiratory Respiratory exam: Present normal lung sounds bilaterally; Absent respiratory distress Cardiovascular Cardiovascular exam: Present regular rate and normal rhythm; Absent JVD Abdominal Exam Abdominal exam: Present soft and normal bowel sounds; Absent distention, tenderness or guarding Extremities Exam Extremities exam: Present normal inspection, full ROM and normal capillary refill; Absent calf tenderness Back Exam Back exam: Present normal inspection; Absent tenderness Neurological Exam Neurological exam: Present alert and oriented X3 Psychiatric Psychiatric exam: Present normal affect and normal mood Skin Skin exam: Present warm, dry, intact and normal color Lymphatic Lymphatic Findings: no adenopathy Medical Decision Making Medical Records Screening: Per USPSTF and CDC recommendations, given the prevalence of disease in our region, it is our hospital?s policy to screen for HIV and viral Hepatitis for all patients aged 18 and over and those with ongoing risk factors. Rod Inquiry Pt receiving controlled substance: No Vital Signs: 02/14/25 21:32 Temperature 98.5 F Temperature Source Oral Pulse Rate [Right Radial] 62 Respiratory Rate 16 Blood Pressure [Right Arm] 145/66 H Blood Pressure Mean [Right Arm] 92 Blood Pressure Source [Right Arm] Automatic Cuff Blood Pressure Position [Right Arm] Sitting 02 Sat by Pulse Oximetry 100 Oxygen Delivery Method Room Air Lab Data Lab Results 02/14/25 22:16: WBC 4.8, RBC 4.75, Hgb 14.1, Hct 41.6, MCV 87.6, MCH 29.7, MCHC 33.9, RDW 13.6, Plt Count 235, MPV 11.0 H, Neut % (Auto) 35.0 L, Lymph % (Auto) 55.2 H, [place] % (Auto) 6.9, Eos % (Auto) 2.1, Baso % (Auto) 0.6, Neut # (Auto) 1.7 L, Lymph # (Auto) 2.7, [place] # (Auto) 0.3, Eos # (Auto) 0.1, Baso # (Auto) 0.0, Sodium 141, Potassium 3.3 L, Chloride 103, Carbon Dioxide 29, Anion Gap 12.3, BUN 5 L, Creatinine 0.60, Estimated Creat Clear 176, Estimated GFR 111, Est GFR ( Amer) 135, Glucose 89, Calcium 9.0, Total Bilirubin 0.9, AST 31, ALT 10 L, Alkaline Phosphatase 49, Total Protein 6.9, Albumin 3.8, Globulin 3.1, Albumin/Globulin Ratio 1.2, Lipase 56 02/14/25 22:16 02/14/25 22:16 Orders (Tests/Meds): ED MEDICATIONS Generic Name Dose Route Start Last Admin Trade Name Freq PRN Reason Stop Dose Admin Potassium Chloride 40 meq 02/14/25 22:50 Potassium Chloride 20meq Tab PO 02/14/25 22:51 ONCE ONE ORDERS Category Date Time Status CBC w/Auto Diff [Complete Blood Count Auto Diff] Stat Lab 02/14/25 22:16 Completed CMP [Comprehensive Metabolic Panel] Stat Lab 02/14/25 22:16 Completed Lipase Stat Lab 02/14/25 22:16 Completed Medical Decision Narrative: In summary patient is an 39-year-old female who presents emergency department for evaluation of unable to eat much. Patient essentially says that since November 25 when she had her gastric sleeve done, she has been unable to eat more than a couple of bites of food today. States it feels like it gets stuck. Has called her bariatric surgery clinic a few times, they recommended possibly doing an EGD but had not scheduled her for an appointment yet. She did try to make an appointment with them on Sunday but they told her to come to the emergency room as they did not have the available on Sunday. Patient is hemodynamically stable upon arrival, afebrile. Unremarkable nonfocal physical exam, patient does not have any abdominal pain to palpation. No complaints at rest, is just reporting poor p.o. intake. Is able to drink sweet tea but is unable to drink water due to the burning sensation she gets when she drinks water. Differential diagnosis includes GERD, gastritis. Initial workup will be conducted with hematologic labs. Did consider ordering a CT of the abdomen pelvis but patient does not have any abdominal pain at this time. Initial workup reviewed by me showed a very mild hypokalemia with a potassium level of 3.3. All other labs essentially unremarkable. Upon repeat evaluation patient continued to be pain-free, is able to tolerate p.o. No nausea, vomiting. States that she is ready to go home. Given this, she is medically stable and appropriate for discharge at this time. She will be given a one-time dose of potassium here in the ER and will be discharged home. She should have follow-up with her bariatric surgeon Dr. Puckett in [place] for further instructions regarding p.o. intake. She was given return precautions and verbalized understanding. Critical Care Critical Care Time Critical Care Time: No
--- NOTE | 2025-02-14 22:34 | PC.NURSE ---
Patient refuses to keep monitoring equipment on.
[2025-02-14 22:41] LABS: Albumin Level 3.8 g/dl (3.5-5.0); Chloride 103 mmol/L (98-107)
[2025-02-14 22:42] LABS: Potassium 3.3 mmoL/L (3.5-5.1); Sodium 141 mmol/L (136-145)
[2025-02-14 22:44] LABS: Alanine Aminotransferase 10 U/L (12-78); Aspartate Amino Transferase 31 U/L (14-36); Blood Urea Nitrogen 5 mg/dl (7-17); Creatinine Clearance Estimated 176 mL/min (50-200); Creatinine,Serum 0.60 mg/dl (0.52-1.04); Estimated Glomerular Filt Rate 111 ml/min (>60); GFR (African American) 135 ML/MIN (>60)
[2025-02-14 22:45] LABS: Albumin/Globulin Ratio 1.2 (1.1-1.8); Alkaline Phosphatase 49 U/L (38-126); Anion Gap 12.3 mEq/L (5-15); Bilirubin,Total 0.9 mg/dl (0.2-1.3); Calcium 9.0 mg/dl (8.4-10.2); Carbon Dioxide 29 mmol/L (22.0-30.0); Globulin 3.1 g/dL (1.3-3.2); Glucose 89 mg/dl (74-100); Hematocrit 41.6 % (37.0-47.0); Hemoglobin 14.1 g/dL (12.2-16.2); Immature Granulocytes % 0.2 %; Lipase 56 U/L (23-300); Mean Corpuscular HGB Conc 33.9 g/dL (31.8-35.4); Mean Corpuscular Hemoglobin 29.7 pg (27.0-31.2); Mean Corpuscular Volume 87.6 fl (81-99); Nucleated Red Blood Cells % 0 %; Platelet Count 235 K/mm3 (142-424); Red Blood Count 4.75 M/mm3 (4.20-5.40); Red Cell Distribution Width-SD 43.9 fL; Total Protein,Serum 6.9 g/dl (6.3-8.2); White Blood Count 4.8 K/mm3 (4.8-10.8)
[2025-02-14] MEDS: POTASSIUM CHLORIDE 20MEQ TAB 40 MEQ PO (22:54)
[2025-02-14 22:56] VITALS: BP 128/74; PULSE 64; RESP 16; TEMP 36.9; O2SAT 100
== END 2025-02-14 22:57 | disposition home or self-care (01) ==
PROVIDERS: Nurse Practitioner Acute Care; Emergency Provider Student in an Organized Health Care Education/Training Program; PCP Internal Medicine
DX: E87.6 Hypokalemia (principal); R63.0 Anorexia
CPT/HCPCS: 36415; 80053; 83690; 85025; 99283

== ENCOUNTER 2025-04-27 14:29 | Outpatient (CLI) | payer MEDICAID, SELFPAY ==
--- OUTSIDE RECORDS SUMMARY | 2025-04-27 14:48 | XMS_ITS | Encounter Summary ---
Author Organization Healthcare Address [address] [id number] Care Team Providers Care Asset Analyst Name Role Phone Pcp, No Primary Care Provider Megan Lockhart Unavailable Unavailable Aaliyah Corral LCSW Unavailable Unavailable Encounter Details Date Type Department Care Team (Late st Contact Info) Description 06/04/2023 Community [facility] [address] [place] [address] Evita Garcia, [address] [place] [address] Abdominal pain, unspecified abdominal location (Primary Dx) [...] documented as of this encounter Care Teams Asset Analyst Relationship Specialty Start Date End Date Pcp, No [address] [place] [address] PCP - General Family Medicine 10/21/21 Megan Finn Cemetery Laborer Metals Analyst 02/17/22 06/05/23 Aaliyah Corral, [place] [address] Cemetery Laborer Metals Analyst 11/04/21 04/02/24 documented as of this encounter
--- OUTSIDE RECORDS SUMMARY | 2025-04-27 14:48 | XMS_ITS | Encounter Summary ---
Author Organization Healthcare Address [address] [place] [address] Care Team Providers Care Carriage Feeder Name Role Phone Pcp, No Primary Care Provider Megan Lockhart Unavailable Unavailable Aaliyah Corral LCSW Unavailable Unavailable Encounter Details Date Type Department Care Team (Late st Contact Info) Description 12/01/2021 Community [facility] [address] [place] [address] Kerry Walker, FRAME TABLE OPERATOR HELPER [address] [facility] [place] [address] Colon cancer screening (Primary Dx); Generalized abdominal [...] documented as of this encounter Care Teams Carriage Feeder Relationship Specialty Start Date End Date Pcp, No [address] [place] [address] PCP - General Family Medicine 10/21/21 Megan Finn Rag Cutting Machine Operator Mechanical Supervisor 02/17/22 06/05/23 Aaliyah Corral, [place] [address] Rag Cutting Machine Operator Mechanical Supervisor 11/04/21 04/02/24 documented as of this encounter
--- OUTSIDE RECORDS SUMMARY | 2025-04-27 14:48 | XMS_ITS | Encounter Summary ---
Author Organization Healthcare Address [address] [place] [address] Care Team Providers Care Software Manager Name Role Phone Pcp, No Primary Care Provider Megan Lockhart Unavailable Unavailable Aaliyah Corral LCSW Unavailable Unavailable Encounter Details Date Type Department Care Team (Late st Contact Info) Description 12/02/2021 Orders Only [facility] [address] [place] [id number] Aleyda De Souza Social History Tobacco Use [...] documented as of this encounter Care Teams Software Manager Relationship Specialty Start Date End Date Pcp, No [address] [place] [address] PCP - General Family Medicine 10/21/21 Megan Finn Rn Circulating Process Engineering Intern 02/17/22 06/05/23 Aaliyah Corral, [place] [address] Rn Circulating Process Engineering Intern 11/04/21 04/02/24 documented as of this encounter
--- OUTSIDE RECORDS SUMMARY | 2025-04-27 14:48 | XMS_ITS | Clinical Summary ---
Author Organization [facility] Address [address] [place] [address] Care Team Providers Care Superintendent Oil Field Drilling Name Role Phone Pcp, No Primary Care [...] Last Done Comments [facility]-Infant/Child/Adol SDOH Screenings 1985 [id number] Vaccine (#1) 1990 [facility]-Varicella Vaccines (1 of [...] A) Not Detected. 12/27/2021 12:09 AM EDT [facility] Hepatitis C Virus (HCV) Quantitative Viral Load Log Result 1.09 <1.08 log10 IU/mL 12/27/2021 12:09 AM EDT [facility] Hepatitis C Virus (HCV) Quantitative IU/mL Result 12 <12 IU/mL 12/27/2021 12:09 AM EDT [facility] Blood Venous blood specimen / Unknown Venipuncture / Unknown 12/23/2021 11:25 AM EDT 12/23/2021 11:25 AM EDT [facility] - 12/27/2021 12:09 AM [...] FDA approved for clinical use. Masha Sharif AEROPHYSICIST LAB BLOOD ORDERABLES Final Result Performing Organization Address City/[facility]/ZIP Co de Phone Number [facility] [address] [place] [address] * HIV 1 & 2 Antibody/Antigen Screen (11/17/2021 1:00 PM EDT) HIV 1 & 2 Antibody/Anti gen Screen Nonreactive Nonreactive 11/17/2021 8:22 PM EDT [facility] Blood Venous blood specimen / Unknown Venipuncture / Unknown 11/17/2021 1:00 PM EDT 11/17/2021 2:02 PM EDT Masha Salesmons AEROPHYSICIST LAB BLOOD ORDERABLES Final Result Performing Organization Address City/[facility] Co de Phone Number [facility] [address] [place] [address] * Cytology (08/01/2004 12:00 AM EST) 08/01/2004 08/03/2004 Narrative [facility] - 08/08/2004 9:09 AM EST [facility] MR #: [id number] [facility] [address] [id number] (Age: 18) FW Collect Date: 08/01/2004 00:00 Receipt Date: 08/03/2004 00:00 Page 1 DEPARTMENT OF PATHOLOGY AND LABORATORY MEDICINE CYTOPATHOLOGY REPORT Email: [email or web address] ATTENDING MD/Practitioner: Alayna Garland MD Service: PAT Location: OUTS Reported: 08/08/2004 09:09 Collected: 08/01/2004 00:00 INTERPRETATION THIN PREP (CERVICAL/VAGINAL): NEGATIVE FOR INTRAEPITHELIAL LESION OR MALIGNANCY. SATISFACTORY FOR EVALUATION; ENDOCERVICAL/TRANSFORMATION ZONE COMPONENT ABSENT/INSUFFICIENT. Slide scanned and imaged by [employer] ThinPrep Imaging System with manual review of [...] results is suggested (please call Microbiology at [phone] for results). CLINICAL INFORMATION: Menstrual History: : First Trimester Date of Last Menstrual Period: 05/24/04 SPECIMEN DESCRIPTION: A: THIN PREP (CERVICAL/VAGINAL) THIN PREP PROCESS CELLULAR ENHANCEMENT ICD: V76.2 CERVIX, SPECIAL SCREENING FOR MALIGNANT NEOPLASM F: A; RT IMAGE [id number] SNOMED CODES: A; [id number] In cases where a pathologist has signed out the report, the service has been rendered in part by a resident. The signing pathologist has performed and is responsible for the reported pathologic evaluation. Historical Provider LAB PATHOLOGY ORDERABLES Fin al Result [facility] from Last 3 Months or Most Recently Relevant to Health Maintenance Insurance [id number] [id number] [employer] Care Teams Superintendent Oil Field Drilling Relationship Specialty Start Date End Date Rashi, [place] [address] PCP - General Family Medicine 10/21/21
--- OUTSIDE RECORDS SUMMARY | 2025-04-27 14:48 | XMS_ITS | Clinical Summary ---
Author Organization [facility] Address [address] [place] [address] Care Team Providers Care Shirrer Name Role Phone Provider, No Known Primary [...] C 11/09/2021 Overview (11/09/2021): appt 11/16 at [facility] Chronic low back pain 11/09/2021 [...] this topic Insurance [employer] Care Teams Shirrer Relationship Specialty Start Date End Date Provider, [place] [address] PCP - General 11/11/21
== END 2025-04-27 23:59 | disposition home or self-care (01) ==
LOC: LAB 14:33
PROVIDERS: PCP Internal Medicine; Visit Provider Family Medicine
DX: F11.20 Opioid dependence, uncomplicated (principal); R53.1 Weakness
CPT/HCPCS: 36415; 84702